=== PATIENT | female | born 1930 | race Caucasian/White ===

== ENCOUNTER 2017-03-16 09:33 | Emergency (ER) | payer OTHER, BC ==
[2017-03-16 09:37] VITALS: BP 163/89; BMI 24.3
--- NOTE | 2017-03-16 10:41 | DR.LACERAT ---
HPI - Time Seen Time seen: 10:15 - Primary Care Physician Primary Care Physician: CRISTINA - Complaints Chief Complaint Doctors Comments: History as stated. Chief Complaint:: PT. FELL AT HER HOME, [place] [address]. PT. HAS A 2CM LACERATION TO RIGHT SIDE OF HEAD, ABOVE EYEBROW WITH BRUISING NOTED. NO LOC. PT. ALSO C/O RIGHT ELBOW PAIN. SKIN TEAR NOTED TO RIGHT HAND. - Source History Provided: Patient - Mode of Arrival Mode of Arrival: Ambulatory - Timing Onset of Chief Complaint: 03/16/17 PMH - PMH Past Medical History: Yes Past Medical History: CVA, Diabetes, Hypertension, Seizures Past Surgical History: Yes Surgical History: Cholecystectomy - Family History History of Family Medical Conditions: Yes Family Medical History: Diabetes Mellitus - Social History Does patient currently use any type of tobacco product: No Have you used tobacco products in the last 12 months: No Type of Tobacco Use: None Does any household member use tobacco: No Alcohol Use: None Do you use any recreational Drugs:: No Lives With: Family Lives Where: Home - infectious screening In the last 2 months have you had wt loss of >10#?: NO Have you had fever, night sweats or hemotysis?: No Have you traveled outside the country in the last 6 months?: No Isolation: Standard ROS - Review of Systems Eyes: No Symptoms Reported ENTM: No Symptoms Reported Respiratoy: No Symptoms Reported Cardiovascular: No Symptoms Reported Gastrointestinal/Abdominal: No Symptoms Reported Genitourinary: No Symptoms Reported Neurological: No Symptoms Reported Musculoskeletal: No Symptoms Reported Integumentary: Other (2cm cresent shaped laceration of right sikhism) Hematologic/Lymphatic: No Symptoms Reported Endocrine: No Symptoms Reported, Increased Hunger All Other Systems: Reviewed and Negative PE - Vital Signs Vitals: Temperature 97.8 F Pulse Rate 70 Respiratory Rate 17 Blood Pressure [Right Arm] 193/88 Blood Pressure [Left Arm] 135/72 Blood Pressure 163/89 O2 Sat by Pulse Oximetry 97 - General Limitations: No Limitations General Appearance: Alert, In No Apparent Distress - Head Head Exam: Normal Inspection, Atraumatic - Eyes Eye exam: Normal Appearance, PERRL - ENT ENT Exam: Normal Exam - Neck Neck Exam: Normal Inspection, Full ROM - Chest Chest Inspection: Normal Inspection - Respiratory Respiratory Exam: Normal Lung Sounds Bilat Respiratory Exam: Bilateral Clear to Auscultation - Cardiovascular Cardiovascular Exam: Regular Rate - Abdominal Exam Abdominal Exam: Normal Inspection Abdominal Tenderness: negative: RUQ, RLQ, LUQ, LLQ, Epigastrium, Suprapubic, Diffuse, Mild, Moderate, Severe, Other - Extremities Extremities Exam: Other (decreased ROM of right elbow) - Back Back Exam: Normal Inspection - Neurologic Neurological Exam: Alert, Oriented X3 - Psychiatric Psychiatric Exam: Normal Affect - Skin Skin Exam: Warm, Dry, Other (cresent shaped superficial laceration of the right sikhism 2cm, right hand medial with a 1.5cm superfical laceration) Type of Lesion: Abrasion Distribution: RUE Description: Size Course - Reevaluation 1st: Improved ROR - XRAY XRAY Interpreted by: Radiologist (Right Elbow: Tiny fragment of bone adjacent to the tip of the coronoid process of the ulna likely a small fracture which could be acte, subacte, or remote) - Diagnosis Discharge Problem: Elbow fracture, right Qualifiers: Encounter type: initial encounter Fracture type: closed Qualified Code(s): S42.401A - Unspecified fracture of lower end of right humerus, initial encounter for closed fracture Laceration of temporomandibular area without foreign body Qualifiers: Encounter type: initial encounter Laterality: right Qualified Code(s): S01.411A - Laceration without foreign body of right cheek and temporomandibular area, initial encounter - Discharge Plan Condition: Stable - Follow ups/Referrals Follow ups/Referrals: Toy Mireles [Primary Care Provider] - 3 days - Instructions
--- NOTE | 2017-03-16 11:18 | RAD ---
HISTORY: Injury, fall, decreased range of motion Study: Right elbow three view Comparison: None Findings: There is a tiny fragment of bone adjacent to the coronoid process of the proximal ulna possibly repr esenting a small fracture which could be acute, subacute or remote. The remainder of the ulna, radiu s, and distal humerus are intact as is the elbow joint. IMPRESSION: Tiny fragment of bone adjacent to the tip of the coronoid process of the ulna likely a small fract ure which could be acute, subacute, or remote. Reported By:
[2017-03-16] MEDS ORDERED: MORPHINE SULFATE INJ 4 MG IM ONE (11:43)
[2017-03-16] MEDS ORDERED: MORPHINE SULFATE INJ 4 MG ONE (11:44)
== END 2017-03-16 12:00 | disposition home or self-care (01) ==
LOC: ER 09:51
PROC: 0WQ00ZZ Repair Head, Open Approach (ICD-10-PCS; principal; 2017-03-16)
DX: S01.411A Laceration without foreign body of right cheek and temporomandibular area, initial encounter (principal); S42.401A Unspecified fracture of lower end of right humerus, initial encounter for closed fracture; W19.XXXA Unspecified fall, initial encounter; Y92.009 Unspecified place in unspecified non-institutional (private) residence as the place of occurrence of the external cause
CPT/HCPCS: 73070; 96372; 99282; 99283; J2270

== ENCOUNTER → 2017-04-08 | Outpatient (CLI) | payer OTHER, BC ==
[2017-03-16 09:37] VITALS: BP 163/89
--- NOTE | 2017-04-08 11:24 | RAD ---
HISTORY: Follow up fracture Study: Right elbow two views Comparison: March 16, 2017 Findings: The limb is in a posterior splint. Once again noted is a tiny fragment of bone adjacent to the coron oid process of the ulna which could represent an acute, subacute, or old fracture. It is unchanged i n appearance from the prior examination. No joint erosion or joint effusion is identified. The proxi mal radius and distal ulna appear intact. IMPRESSION: No significant change from the prior examination Reported By:
== END ==
LOC: RAD 10:44
PROVIDERS: ATTEND Orthopaedic Surgery
DX: S52.044A Nondisplaced fracture of coronoid process of right ulna, initial encounter for closed fracture (principal); X58.XXXA Exposure to other specified factors, initial encounter
CPT/HCPCS: 73070

== ENCOUNTER → 2017-05-13 | Outpatient (CLI) | payer OTHER, BC ==
--- NOTE | 2017-05-13 17:14 | RAD ---
Right elbow, three views Indication: Fracture follow up Comparison: April 08, 2017 Findings: Overlying splint has been removed. The tiny ossific body adjacent to the coronoid process of the ulna appears grossly unchanged, again either reflecting an age indeterminate fracture fragmen t or possibly degenerative in nature. There is persistent mild displacement of the anterior fat pad of the elbow, suggestive for trace effusion. The elbow joint otherwise appears maintained in anatomi c position. No new osseous abnormality identified. Impression: No new osseous abnormality or change since prior exam. Reported By:
== END ==
LOC: RAD 15:03
PROVIDERS: ATTEND Orthopaedic Surgery
DX: S52.044A Nondisplaced fracture of coronoid process of right ulna, initial encounter for closed fracture (principal); X58.XXXA Exposure to other specified factors, initial encounter
CPT/HCPCS: 73070

== ENCOUNTER 2017-05-25 17:54 | Emergency (ER) | payer OTHER, BC ==
[~2017-05-25 17:54] MED LIST: HYDROGEN PEROXIDE 3% ONE
[2017-05-25 18:04] VITALS: BMI 24.0
--- NOTE | 2017-05-25 18:47 | CT ---
STUDY: CT HEAD WITHOUT CONTRAST HISTORY: Fall with laceration to right eyebrow. COMPARISON: January 23, 2016. TECHNIQUE: Multiple axial images of the head were obtained from the skull base to the vertex without administration of IV contrast. Automated exposure control (AEC) was utilized to adjust the MA and/o r kV. Findings: The sulci, cisterns and ventricles are prominent consistent with diffuse volume loss. There are scattered foci of low attenuation in the periventricular and subcortical white matter of b oth hemispheres. This is a nonspecific finding which likely represents microangiopathic change in a patient of this age. There is focal encephalomalacia in the left posterior temporal/parietal region, unchanged from the p rior exam. There is no evidence of acute territorial infarction, hemorrhage, mass, mass effect or m idline shift. There are no abnormal extra-axial fluid collections. There is no evidence of acute osseous abnormality or significant soft tissue swelling. IMPRESSION: 1. No evidence of acute intracranial abnormality. 2. Nonspecific white matter change and volume loss as described. 3. Probable old infarct in the left posterior temporal/parietal region. 4. If there remains strong clinical concern for acute intracranial abnormality, then an MRI examinat ion should be considered for further evaluation. Reported By:
--- NOTE | 2017-05-25 18:58 | CT ---
STUDY: MAXILLOFACIAL CT History: Fall with laceration to right eyebrow. Comparison: Head CT from January 23, 2016. Technique: Multiple axial images of the facial structures were obtained from the mandible to superio r portions of the orbits. Coronal and sagittal reformatted images were performed and reviewed. Autom ated exposure control (AEC) was utilized to adjust the MA and/or kV. Findings: Axial images: There is preseptal periorbital soft tissue swelling on the right. No post septal or intraconal fat s tranding is appreciated. The globe itself appears intact. The left orbit is intact. There does appea r to be some thinning of the lateral orbital link bilaterally. 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 There is a small fluid level in the right maxillary sinus. There is mucosal thickening in multiple e thmoid air cells. The small amount mucosal thickening in the sphenoid ethmoidal recess on the right. The frontal recesses and frontal sinus are predominately clear. The zygomaticomaxillary complexes are intact. The mandible as well as the surrounding soft tissue st ructures appear unremarkable. Cbe Reformatted images: The ethmoid roofs are symmetric. The lamina papyracea appear intact bilaterally. There is an age indeterminate orbital blowout fracture on the right. There is no evide nce of orbital blowout on the left. The ostiomeatal units are predominately clear. Both temporomandi bular joints are intact. There are periapical lucencies around several maxillary molars bilaterally. IMPRESSION: 1. 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 This was present on the prior head CT dated January 23, 2016. Although there is preseptal periorbital soft tissue swelling on the right, there is no de finite evidence of acute osseous injury to the right orbit at this time. 2. Small fluid level in the right maxillary sinus. Clinical correlation is recommended. Reported By:
--- NOTE | 2017-05-25 19:38 | DR.LACERAT ---
HPI - Time Seen Time seen: 21:15 - Primary Care Physician Primary Care Physician: CRISTINA HERNANDEZ - HPI Comment HPI Comment: PATIENTWAS COMING OUT OF THE [facility]CT[facility] OFFICE AND FELL. NO LOC. 3CM LACERATION RIGHT EYE BROW. - Complaints Chief Complaint Doctors Comments: FELL. LACERATION RIGHT EYE BROW. Chief Complaint:: PT WAS WALKING OUT OF DOCTORS OFFICE AND PT FELL AND HIT HER HEAD ON THE SIDE WALK.. PTS DAUGHTER NO LOC ,,, PT HAS A 3 CM LACERATON TO HER RIGHT ABOVE BROW AREA .. - Reviewed Nurses Notes Reviewed: Yes - Source History Provided: Patient - Mode of Arrival Mode of Arrival: Wheelchair - Timing Onset of Chief Complaint: 05/25/17 - Context Mechanism: Fall Tetanus Vaccination: No - Severity Pain Severity: Moderate Bleeding:: Uncontrolled - Associated Signs and Symptoms Associated Signs and Symptoms: Foreign Body PMH - PMH Past Medical History: Yes Past Medical History: CVA, Diabetes, Hypertension, Seizures Past Surgical History: Yes Surgical History: Cholecystectomy - Family History History of Family Medical Conditions: Yes Family Medical History: Diabetes Mellitus - Social History Does patient currently use any type of tobacco product: No Have you used tobacco products in the last 12 months: No Type of Tobacco Use: None Does any household member use tobacco: No Alcohol Use: None Do you use any recreational Drugs:: No Lives With: Family Lives Where: Home - infectious screening In the last 2 months have you had wt loss of >10#?: NO Have you had fever, night sweats or hemotysis?: No Have you traveled outside the country in the last 6 months?: No Isolation: Standard ROS - Review of Systems Constitutional: No Symptoms Reported Eyes: No Symptoms Reported ENTM: No Symptoms Reported Respiratoy: No Symptoms Reported Cardiovascular: No Symptoms Reported Gastrointestinal/Abdominal: No Symptoms Reported Genitourinary: No Symptoms Reported Neurological: No Symptoms Reported Musculoskeletal: Other (ROGHT PERORBITAL SWELLING.) Integumentary: Other (3CM LACERATION RT EYE BROW.) Hematologic/Lymphatic: No Symptoms Reported Endocrine: No Symptoms Reported All Other Systems: Reviewed and Negative PE - Vital Signs Vitals: Pulse Rate [Left Brachial] 77 Respiratory Rate 18 Blood Pressure [Right Arm] 173/78 Blood Pressure [Left Arm] 135/72 Blood Pressure 163/89 O2 Sat by Pulse Oximetry 100 - General Limitations: No Limitations General Appearance: Alert. negative: In Distress - Head Head Exam: Other (3CM LACERATION RT EYE BROW. RT PERIORBITAL SWELLING.) - Eyes Eye exam: Normal Appearance - ENT ENT Exam: Normal External Ear Exam - Neck Neck Exam: Trachea Midline - Chest Chest Inspection: Symmetric Chest Wall Rise - Respiratory Respiratory Exam: Normal Lung Sounds Bilat Respiratory Exam: Bilateral Rhonchi, Lower Rhonchi - Cardiovascular Cardiovascular Exam: Regular Rate, Normal Rhythm, Normal Heart Sounds - Abdominal Exam Abdominal Exam: Normal Bowel Sounds, Soft. negative: Guarding - Extremities Extremities Exam: Normal Inspection, Normal Capillary Refill - Back Back Exam: Normal Inspection - Neurologic Neurological Exam: Alert, Oriented X3 - Psychiatric Psychiatric Exam: Normal Affect, Normal Mood - Skin Skin Exam: Erythema (3CM LAC RT EYE MONTSERRAT-ROW.) MDM - Additional Information Obtained Additional Information Obtained From: Family - Differential Diagnosis Differential Diagnosis: Abrasion, Contusion, Laceration, Fracture Course - Treatment Treatment: LAC CLOSE IN ED. - Education/Counseling Education/Counseling: Patient, Family, Education Educated On: Treatment, Diagnosis, Needs for Follow Up ROR - XRAY XRAY Interpreted by: Radiologist XRAY Findings: REPORT DISCUSS WITH PATIENT AND HER FAMILY. Procedures - Laceration/Wound Repair Right Eye Wound Length (cm): 3 Wound's Depth, Shape: Linear Wound Explored: clean Betadine Prep?: Yes Anesthesia: 1% Lidocaine Volume Anesthetic (ccs): 2 Wound Debrided: minimal Wound Repaired With: sutures Suture Size/Type: 4:0, Ethilion Number of Sutures: 6 Sterile Dressing Applied?: Yes Splint Applied?: No Sling Applied?: No - Diagnosis Discharge Problem: Laceration of right eyebrow Qualifiers: Encounter type: initial encounter Qualified Code(s): S01.111A - Laceration without foreign body of right eyelid and periocular area, initial encounter Contusion of face Qualifiers: Encounter type: initial encounter Qualified Code(s): S00.83XA - Contusion of other part of head, initial encounter Fall Qualifiers: Encounter type: initial encounter Qualified Code(s): W19.XXXA - Unspecified fall, initial encounter - Discharge Plan Disposition: HOME, SELF-CARE Condition: Stable - Follow ups/Referrals Follow ups/Referrals: Toy iMreles [Primary Care Provider] - 2 days - Instructions Instructions: Laceration Care, Adult, [id number] Additional Instructions: RETURN TO ED IF WORSE. SUTURE OUT IN 10 DAYS
[2017-05-25 19:51] VITALS: BP 173/78
== END 2017-05-25 20:06 | disposition home or self-care (01) ==
LOC: ER 18:03
PROC: 08Q0XZZ Repair Right Eye, External Approach (ICD-10-PCS; principal; 2017-05-25)
DX: S01.111A Laceration without foreign body of right eyelid and periocular area, initial encounter (principal); W19.XXXA Unspecified fall, initial encounter; Y92.531 Health care provider office as the place of occurrence of the external cause
CPT/HCPCS: 12013; 70450; 70486; 99283

== ENCOUNTER → 2017-12-02 | Outpatient (CLI) | payer OTHER, BC ==
--- NOTE | 2017-12-02 11:35 | MG ---
Examination: Bilateral screening mammogram. Clinical history: Routine screening. Technique: Digital CC and MLO views of both breasts were obtained. Computer aided detection analysis was performed and used during the interpretation. Comparison: 10/27/2016. Findings: The breasts are heterogeneously dense, reducing the sensitivity of mammography. Benign-appearing calc ifications are noted in the breasts bilaterally. A skin mole is present overlying the right breast. No suspicious mass, area of architectural distortion or suspicious cluster of microcalcifications is noted. Impression: 1. No mammographic evidence of malignancy. BI-RADS category 2-benign findings. Recommend routine annual screening mammogram. Diagnostic CAD was utilized and reviewed. * 0 (ZERO) - ASSESSMENT INCOMPLETE; ADDITIONAL IMAGING IS NEEDED. * 0C - ASSESSMENT INCOMPLETE, NEEDS ADDITIONAL IMAGING EVALUATION AND/OR PRIOR MAMMOGRAMS FOR COMPARI SON. * 1/1 (ONE) - NEGATIVE. * 2/II (TWO) - BENIGN FINDINGS. * 3/III (THREE) - PROBABLY BENIGN FINDING; SHORT INTERVAL FOLLOW-UP SUGGESTED. * 4/IV (FOUR) - SUSPICIOUS ABNORMALITY; BIOPSY SHOULD BE CONSIDERED. * 5/V - HIGHLY SUSPICIOUS OF MALIGNANCY; BIOPSY SHOULD BE PERFORMED. * 6/IV - KNOWN BIOPSY PROVEN MALIGNANCY-APPROPRIATE ACTION SHOULD BE TAKEN. A NEGATIVE X-RAY REPORT SHOULD NOT DELAY BIOPSY IF A DOMINANT OR CLINICALLY SUSPICIOUS MASS IS PRESENT; 4 TO 8 PERCENT OF CANCERS ARE NOT IDENTIFIED BY X-RAY. A NEGATIVE REPORT MAY REINFORCE THE CLINICAL IMPRESSION. ADENOSIS AND DENSE BREASTS MAY OBSCURE AN UNDERLYING NEOPLASM. Reported By:
== END ==
LOC: RAD 10:03
PROVIDERS: ATTEND Internal Medicine
DX: Z12.31 Encounter for screening mammogram for malignant neoplasm of breast (principal)
CPT/HCPCS: 77067

== ENCOUNTER 2019-12-11 14:45 | Inpatient (IN) ==
--- NOTE | 2019-12-11 17:32 | DR.GIBLEED ---
HPI Time Seen Time Seen by Provider: 12/11/19 17:26 Primary Care Physician Primary Care Physician: DR. EVANS Complaints Chief Complaint:: PT STATES SHE IS PASSING CLOTS OF BLOOD OUT OF HER RECTUM. STATES IT STARTED THIS AM. STATES SHE IS WEAK FEELING FROM PASSING OF THE BLOOD. STATES HER STOMACH APPEARS SWOLLEN. Source History Provided: Patient Mode of Arrival Mode of Arrival: Ambulatory Timing Onset of Chief Complaint: 12/11/19 PMH PMH Past Medical History: Yes Past Medical History: CVA and Seizures Past Medical History Comment: BORDERLINE DIABETES Past Surgical History: Yes Surgical History: Cholecystectomy and Ortho Surgery Past Surgical History Comment: LEFT HIP SURGERY RIGHT LEG SURGERY Family History History of Family Medical Conditions: Yes Family Medical History: Diabetes Mellitus Social History Does patient currently use any type of tobacco product: No Have you used tobacco products in the last 12 months: No Type of Tobacco Use: None Does any household member use tobacco: No Alcohol Use: None Do you use any recreational Drugs:: No Lives With: Alone Lives Where: Home infectious screening Have you traveled outside the country in the last 6 months?: No Isolation: Standard ROS Review of Systems Constitutional: See HPI, Malaise, Weakness and Fatigue; negative Diaphoresis and Fever Eyes: No Symptoms Reported ENTM: No Symptoms Reported Respiratoy: No Symptoms Reported Cardiovascular: No Symptoms Reported Gastrointestinal/Abdominal: See HPI, Diarrhea and Other (blood in stool x 24 hrs- cramping) Genitourinary: No Symptoms Reported Neurological: No Symptoms Reported Musculoskeletal: No Symptoms Reported Integumentary: No Symptoms Reported Hematologic/Lymphatic: No Symptoms Reported All Other Systems: Reviewed and Negative PE Vital Signs Vitals: Temperature 98.3 F Pulse Rate 78 Respiratory Rate 16 Blood Pressure [Right Arm] 134/62 Blood Pressure [Left Arm] 159/76 Blood Pressure 129/59 O2 Sat by Pulse Oximetry 91 General Limitations: No Limitations General Appearance: Alert, Anxious and In Distress Head Head Exam: Normal Inspection Eyes Eye exam: PERRL and EOMI ENT ENT Exam: Normal Exam Neck Neck Exam: Normal Inspection Chest Chest Inspection: Normal Inspection Respiratory Respiratory Exam: Normal Lung Sounds Bilat Cardiovascular Cardiovascular Exam: Regular Rate and Normal Heart Sounds Abdominal Exam Abdominal Exam: Normal Inspection and Normal Bowel Sounds; negative Tenderness and Guarding Rectal Rectal Exam: Deferred Extremities Extremities Exam: Normal Inspection Skin Skin Exam: Warm, Dry and Intact DIFFERENTIAL DIAGNOSIS Differential Diagnosis Differential Diagnosis: Diverticulosis ROR Labs Reviewed Result Diagrams: 12/11/19 17:51 12/11/19 17:51 Opioid Opioid Risk Tool Age (Davion box if 16-45): No History of Preadolescent Sexual Abuse: No Total: 0 Total Score Risk Category: Low Risk Copyright: Kermit CARMONA predicting aberrant behaviors
[2019-12-11 18:14] LABS: ALANINE AMINOTRANSFERASE 22 Units/L (12-78); ALBUMIN 3.9 g/dL (3.4-5.0); ALKALINE PHOSPHATASE 61 Units/L (46-116); ASPARTATE AMINO TRANSFERASE 19 Units/L (15-37); BASOPHILS # (AUTO) 0.4 X10^3/uL (0.0-0.1); BASOPHILS % (AUTO) 1.5 % (0.2-1.0); BLOOD UREA NITROGEN 31 mg/dL (7-18); CALCIUM 9.7 mg/dL (8.5-10.1); CARBON DIOXIDE 30.5 mmol/L (21-32); CHLORIDE 101 mmol/L (98-107); COR NA(FOR HYPERGLY) 138 mmol/L (136-145); CREATININE 0.96 mg/dL (0.55-1.02); EOSINOPHILS # (AUTO) 0.3 x10^3/uL (0.0-0.2); EOSINOPHILS % (AUTO) 1.1 % (0.9-2.9); HEMATOCRIT 37.3 % (36.0-47.0); HEMOGLOBIN 12.5 g/dL (12.0-16.0); LYMPHOCYTES # (AUTO) 4.4 X10^3/uL (1.3-2.9); MEAN CORPUSCULAR HEMOGLOBIN 31.4 pg (27.0-34.0); MEAN CORPUSCULAR HGB CONC 33.5 g/dL (33.0-35.0); MEAN CORPUSCULAR VOLUME 93.8 fL (80.0-100.0); MEAN PLATELET VOLUME 7.4 fL (7.4-11.0); MONOCYTES # (AUTO) 0.6 x10^3/uL (0.3-0.8); MONOCYTES % (AUTO) 2.2 % (0.0-13.0); NEUTROPHILS # (AUTO) 21.7 x10^3/uL (2.2-4.8); NEUTROPHILS % (AUTO) 79.2 % (42.0-75.0); RED BLOOD COUNT 3.97 X10^6/uL (3.5-5.4); RED CELL DISTRIBUTION WIDTH 15.5 % (11.6-16.5); SODIUM 137 mmol/L (136-145); WHITE BLOOD COUNT 27.4 X10^3/uL (3.6-10.0); eGFR NON BLACK RACES 58 (>60)
[2019-12-11 18:31] LABS: PLATELET COUNT 1168 X10^3/uL (150.0-450.0)
[2019-12-11 18:32] LABS: BAND NEUTROPHILS % 2 % (0-10); PLATELET MORPHOLOGY COMMENT NORMAL (NORMAL)
--- NOTE | 2019-12-11 18:41 | CT ---
HISTORYabdominal pain, GI bleedSTUDYABDOMEN/PELVIS W/O CONCOMPARISONNone.TECHNIQUEMultiple axial images of the abdomen and pelvis were obtained from the lung bases to the pubic symphysis without the administration of IV contrast. Dose reduction techniques including Automated Exposure Control (AEC) and adjustment of mA and kV were utilized.FINDINGSExamination, specifically for evaluation of a source of GI bleed, is limited given the lack of intravenous contrast. Included portions of the lung bases are clear. There are coronary artery calcifications. 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 There is extensive atherosclerotic disease of the abdominal aorta and branch vessels with narrowing of the abdominal aorta near the level of the renal arteries. The gallbladder is surgically absent. The liver, pancreas, spleen, adrenal glands and kidneys are unremarkable in their noncontrast CT appearance. The urinary bladder is partially distended and grossly unremarkable. The uterus is present. The appendix is normal. There is sigmoid diverticulosis with suspected thickening of the wall of the sigmoid colon. There is no associated inflammatory change to suggest acute diverticulitis. Underlying mass cannot be excluded. There is no small bowel dilatation. There is no intraperitoneal free air or free fluid. There is an uncomplicated fat containing umbilical hernia. There is scoliosis and multilevel degenerative disc disease the thoracolumbar spine. There has been open reduction and internal fixation of a left femoral neck fracture.IMPRESSION1. Examination, specifically for evaluation of a source of GI bleed, is limited given the lack of intravenous contrast.2. Sigmoid diverticulosis with thickening of the wall of the sigmoid colon, but without associated inflammatory change to suggest acute diverticulitis. Underlying mass cannot be excluded. GI consultation is recommended if not already obtained.3. 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 Extensive atherosclerotic disease of the abdominal aorta and branch vessels which results in narrowing of the abdominal aorta at the level of the renal arteries. Follow-up CT angiogram of the abdomen with IV contrast on an outpatient basis may be of further diagnostic benefit.Electronically signed by: ULYSSES ANGEL (Dec 11, 2019 18:38:51)
--- NOTE | 2019-12-11 19:05 | DR.GIBLEED ---
HPI Time Seen Time Seen by Provider: 12/11/19 17:26 Primary Care Physician Primary Care Physician: DR. EVANS HPI Comment HPI Comment: PATIENT IS 89YR OLD FEMALE IN ER WITH RECTAL BLEEDING WITH BLOOD CLOTS SINCE THIOIS AM. Complaints Chief Complaint Doctors Comments: RECTAL BLEEDING SINCE THIS AM WITH ABDOMINAL SWELLING AND PAIN. Chief Complaint:: PT STATES SHE IS PASSING CLOTS OF BLOOD OUT OF HER RECTUM. STATES IT STARTED THIS AM. STATES SHE IS WEAK FEELING FROM PASSING OF THE BLOOD. STATES HER STOMACH APPEARS SWOLLEN. Reviewed Nurses Notes Reviewed: Yes Source History Provided: Patient Mode of Arrival Mode of Arrival: Ambulatory Timing Onset of Chief Complaint: 12/11/19 Duration Bleeding: Currently Present Duration: Hours Quality Vomitus: Bright Red Blood Stools: Bright Red Blood PMH PMH Past Medical History: Yes Past Medical History: CVA and Seizures Past Medical History Comment: BORDERLINE DIABETES Past Surgical History: Yes Surgical History: Cholecystectomy and Ortho Surgery Past Surgical History Comment: LEFT HIP SURGERY RIGHT LEG SURGERY Family History History of Family Medical Conditions: Yes Family Medical History: Diabetes Mellitus Social History Does patient currently use any type of tobacco product: No Have you used tobacco products in the last 12 months: No Type of Tobacco Use: None Does any household member use tobacco: No Alcohol Use: None Do you use any recreational Drugs:: No Lives With: Alone Lives Where: Home infectious screening Have you traveled outside the country in the last 6 months?: No Isolation: Standard PE Vital Signs Vitals: Temperature 98.3 F Pulse Rate [Left Brachial] 70 Pulse Rate 78 Respiratory Rate 17 Blood Pressure [Right Arm] 134/62 Blood Pressure [Left Arm] 112/59 Blood Pressure 129/59 O2 Sat by Pulse Oximetry 91 ROR Labs Reviewed Result Diagrams: 12/11/19 17:51 12/11/19 17:51 Laboratory: WBC 27.4 X10^3/uL (3.6-10.0) H 12/11/19 17:51 RBC 3.97 X10^6/uL (3.5-5.4) 12/11/19 17:51 Hgb 12.5 g/dL (12.0-16.0) 12/11/19 17:51 Hct 37.3 % (36.0-47.0) 12/11/19 17:51 MCV 93.8 fL (80.0-100.0) 12/11/19 17:51 MCH 31.4 pg (27.0-34.0) 12/11/19 17:51 MCHC 33.5 g/dL (33.0-35.0) 12/11/19 17:51 RDW 15.5 % (11.6-16.5) 12/11/19 17:51 Plt Count 1168 X10^3/uL (150.0-450.0) H* 12/11/19 17:51 Plt Count Comment Increased (ADEQUATE) A 12/11/19 17:51 MPV 7.4 fL (7.4-11.0) 12/11/19 17:51 Neut % (Auto) 79.2 % (42.0-75.0) H 12/11/19 17:51 Lymph % (Auto) 16.0 % (21.0-51.0) L 12/11/19 17:51 [place] % (Auto) 2.2 % (0.0-13.0) 12/11/19 17:51 Eos % (Auto) 1.1 % (0.9-2.9) 12/11/19 17:51 Baso % (Auto) 1.5 % (0.2-1.0) H 12/11/19 17:51 Neut # (Auto) 21.7 x10^3/uL (2.2-4.8) H 12/11/19 17:51 Lymph # (Auto) 4.4 X10^3/uL (1.3-2.9) H 12/11/19 17:51 [place] # (Auto) 0.6 x10^3/uL (0.3-0.8) 12/11/19 17:51 Eos # (Auto) 0.3 x10^3/uL (0.0-0.2) H 12/11/19 17:51 Baso # (Auto) 0.4 X10^3/uL (0.0-0.1) H 12/11/19 17:51 Absolute Nucleated RBC 0.0 /100WBC 12/11/19 17:51 Total Counted 100 12/11/19 17:51 Neutrophils % (Manual) 75 % (39-76) 12/11/19 17:51 Band Neutrophils % 2 % (0-10) 12/11/19 17:51 Lymphocytes % (Manual) 19 % (13-43) 12/11/19 17:51 Monocytes % (Manual) 3 % (4-9) L 12/11/19 17:51 Eosinophils % (Manual) 1 % (0-6) 12/11/19 17:51 Plt Morphology Comment Normal (NORMAL) 12/11/19 17:51 RBC Morphology Normal (NORMAL) 12/11/19 17:51 Sodium 137 mmol/L (136-145) 12/11/19 17:51 Corrected Sodium 138 mmol/L (136-145) 12/11/19 17:51 Potassium 4.7 mmol/L (3.5-5.1) 12/11/19 17:51 Chloride 101 mmol/L (98-107) 12/11/19 17:51 Carbon Dioxide 30.5 mmol/L (21-32) 12/11/19 17:51 BUN 31 mg/dL (7-18) H 12/11/19 17:51 Creatinine 0.96 mg/dL (0.55-1.02) 12/11/19 17:51 Est GFR (MDRD) Af Amer > 60 (>60) 12/11/19 17:51 Est GFR (MDRD) Non-Af 58 (>60) L 12/11/19 17:51 Glucose 126 mg/dL (65-99) H 12/11/19 17:51 Lactic Acid 0.7 mmol/L (0.4-2.0) 12/11/19 19:06 Calcium 9.7 mg/dL (8.5-10.1) 12/11/19 17:51 Corrected Calcium TNP 12/11/19 17:51 Total Bilirubin 0.40 mg/dL (0.2-1.0) 12/11/19 17:51 AST 19 Units/L (15-37) 12/11/19 17:51 ALT 22 Units/L (12-78) 12/11/19 17:51 Alkaline Phosphatase 61 Units/L (46-116) 12/11/19 17:51 Total Protein 7.0 g/dL (6.4-8.2) 12/11/19 17:51 Albumin 3.9 g/dL (3.4-5.0) 12/11/19 17:51 Globulin 3.1 g/dL (2.5-4.5) 12/11/19 17:51 Albumin/Globulin Ratio 1.3 Ratio (1.1-2.1) 12/11/19 17:51 Specimen Type Catherized urine 12/11/19 20:46 Urine Color Yellow (YELLOW) 12/11/19 20:46 Urine Appearance Clear (CLEAR) 12/11/19 20:46 Urine pH 7.0 (5.0 - 8.0) 12/11/19 20:46 Ur Specific [place] 1.010 (1.000-1.030) 12/11/19 20:46 Urine Protein Negative (NEGATIVE) 12/11/19 20:46 Urine Glucose (UA) Negative (NEGATIVE) 12/11/19 20:46 Urine Ketones Negative (NEGATIVE) 12/11/19 20:46 Urine Occult Blood 1+ (NEGATIVE) 12/11/19 20:46 Urine Nitrite Negative (NEGATIVE) 12/11/19 20:46 Urine Bilirubin Negative (NEGATIVE) 12/11/19 20:46 Urine Urobilinogen Normal (NORMAL) 12/11/19 20:46 Ur Leukocyte Esterase 3+ (NEGATIVE) 12/11/19 20:46 Urine RBC None seen /HPF (0-3) 12/11/19 20:46 Urine WBC Tntc /HPF (0-5) A 12/11/19 20:46 Ur Squamous Epith Cells Few /HPF (NEGATIVE) 12/11/19 20:46 Urine Bacteria 1+ /HPF (NEGATIVE) 12/11/19 20:46 Urine Mucus Moderate /HPF (NEGATIVE) 12/11/19 20:46 Ur Culture Indicated? Yes/culture set up 12/11/19 20:46 Stool Description 75g pink clear lqd 12/11/19 18:11 Stl Occult Blood (IFOB) Positive (NEGATIVE) A 12/11/19 18:11 Opioid Opioid Risk Tool Age ([place] box if 16-45): No History of Preadolescent Sexual Abuse: No Total: 0 Total Score Risk Category: Low Risk Copyright: Kermit CARMONA predicting aberrant behaviors
[2019-12-11] MEDS ORDERED: PROTONIX INJ 40 MG VIAL ONE (19:14)
[2019-12-11] MEDS ORDERED: NS 100 ML IV 100 ML IV ONE (19:14)
[2019-12-11] MEDS: PROTONIX INJ 40 MG VIAL 80 MG in NS 100 ML IV 80 ML IV SCH (19:31)
[2019-12-11] MEDS ORDERED: ZOSYN VIAL 3.375 GRAMS 3.375 G in NS 100 ML IV + SPIKE MINIBAG* 100 ML IV ONE (19:55)
[2019-12-11] MEDS ORDERED: ZOSYN VIAL 3.375 GRAMS IV ONE (20:16)
[2019-12-11] MEDS ORDERED: NS 100 ML IV + SPIKE MINIBAG* 100 ML IV ONE (20:17)
[2019-12-11 20:51] LABS: BILIRUBIN,URINE NEGATIVE (NEGATIVE); BLOOD/HEMOGLOBIN,URINE 1+ (NEGATIVE); GLUCOSE, URINE NEGATIVE (NEGATIVE); KETONES,URINE NEGATIVE (NEGATIVE); LEUKOCYTE ESTERASE ,URINE 3+ (NEGATIVE); NITRITES,URINE NEGATIVE (NEGATIVE); PROTEIN,URINE NEGATIVE (NEGATIVE); UROBILINOGEN,URINE NORMAL (NORMAL)
[2019-12-11 21:00] LABS: APPEARANCE,URINE CLEAR (CLEAR); BACTERIA,URINE 1+ /HPF (NEGATIVE); COLOR,URINE YELLOW (YELLOW); MUCUS,URINE MODERATE /HPF (NEGATIVE); RBC,URINE NONE SEEN /HPF (0-3); SQUAMOUS EPITHELIAL CELL,UR FEW /HPF (NEGATIVE)
--- NOTE | 2019-12-11 21:50 | RAD ---
HISTORYleukocytosis, passing blood from rectumSTUDYCHEST, 1 VIEWCOMPARISONJune 2017FINDINGSThe trachea is midline. The cardiac silhouette is enlarged. Hazy opacification within the left lung base suggest atelectasis, infiltrate, and/or small effusion. Correlate clinically.IMPRESSIONCardiomegaly.Left basilar airspace disease as noted above.Electronically signed by: FE MASTERSON (Dec 11, 2019 21:49:12)
[2019-12-11] MEDS ORDERED: NS 1000 ML 1,000 ML ONE (22:10)
[2019-12-11] MEDS: NS 1000 ML 1,000 ML IV SCH (22:15)
[2019-12-12 02:41] VITALS: BMI 24.0
[2019-12-12] MEDS: PROTONIX INJ 40 MG VIAL 80 MG in NS 100 ML IV 80 ML IV SCH ×4 (04:31→18:50)
[2019-12-12 05:49] LABS: BASOPHILS % (AUTO) 0.1 % (0.2-1.0); EOSINOPHILS # (AUTO) 0.8 x10^3/uL (0.0-0.2); EOSINOPHILS % (AUTO) 4.8 % (0.9-2.9); HEMATOCRIT 26.2 % (36.0-47.0); HEMOGLOBIN 8.7 g/dL (12.0-16.0); LYMPHOCYTES # (AUTO) 1.4 X10^3/uL (1.3-2.9); LYMPHOCYTES % (AUTO) 8.5 % (21.0-51.0); MEAN CORPUSCULAR HEMOGLOBIN 31.4 pg (27.0-34.0); MEAN CORPUSCULAR HGB CONC 33.4 g/dL (33.0-35.0); MEAN PLATELET VOLUME 7.7 fL (7.4-11.0); MONOCYTES # (AUTO) 0.3 x10^3/uL (0.3-0.8); NEUTROPHILS # (AUTO) 14.4 x10^3/uL (2.2-4.8); NEUTROPHILS % (AUTO) 84.6 % (42.0-75.0); PLATELET COUNT 803 X10^3/uL (150.0-450.0); RED BLOOD COUNT 2.79 X10^6/uL (3.5-5.4); RED CELL DISTRIBUTION WIDTH 15.7 % (11.6-16.5)
[2019-12-12 05:58] LABS: ALANINE AMINOTRANSFERASE 16 Units/L (12-78); ALBUMIN 2.8 g/dL (3.4-5.0); ALKALINE PHOSPHATASE 39 Units/L (46-116); ASPARTATE AMINO TRANSFERASE 13 Units/L (15-37); BLOOD UREA NITROGEN 30 mg/dL (7-18); CALCIUM 8.3 mg/dL (8.5-10.1); CARBON DIOXIDE 26.8 mmol/L (21-32); CHLORIDE 105 mmol/L (98-107); COR CA(FOR HYPOALB) 9.3 mg/dL (8.5-10.1); COR NA(FOR HYPERGLY) 139 mmol/L (136-145); CREATININE 0.71 mg/dL (0.55-1.02); MAGNESIUM 1.7 mg/dL (1.7-2.9); SODIUM 139 mmol/L (136-145); eGFR NON BLACK RACES > 60 (>60)
[2019-12-12 06:25] LABS: BAND NEUTROPHILS % 3 % (0-10)
[2019-12-12 06:26] LABS: PLATELET MORPHOLOGY COMMENT NORMAL (NORMAL)
[2019-12-12] MEDS: ROCEPHIN VIAL 1 GRAM 1 G in NS 100 ML IV + SPIKE MINIBAG* 100 ML IV SCH (09:10)
[2019-12-12] MEDS: TYLENOL 325 MG TAB PO PRN (11:32)
[2019-12-12] MEDS: NS 1000 ML 1,000 ML IV SCH ×2 (14:07→22:42)
--- NOTE | 2019-12-12 18:49 | DR.CONSULT ---
Consult - Consultation for Day of: Date: 12/12/19 - Chief Complaint Chief Complaint: Patient is a 89yo female who was referred for GI Bleed and anemiaa. Patient with complaints of dyspesia, epigastric pain and hematochezia - History of Present Illness History of Present Illness: Patient is a 89yo female who was referred for GI Bleed and anemia. Patient with complaints of dyspesia, epigastric pain and hematochezia that started yesterday and was passing blood clots, last seen late last night. Patient denies dysphagia, nausea, vomiting, constipation, diarrhea and melena. Last Colon was [address] Jean Baptiste no polyps. Patient had abdomen and pelvis ct scan showed Examination, specifically for evaluation of a source of GI bleed, is limited given the lack of intravenous contrast, Sigmoid diverticulosis with thickening of the wall of the sigmoid colon, but without associated inflammatory change to suggest acute diverticulitis. Underlying mass cannot be excluded. GI consultation is recommended if not already obtained. 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 Follow-up CT angiogram of the abdomen with IV contrast on an outpatient basis may be of further diagnostic benefit. WBC 17.0, Hgb 8.7 down from 12.5, Hct 26.2, Plt 803, INR 1.28, BUN 30, Creatinine 0.71, T. Bili 0.3, AST 13, ALT 16, ALP39. Hemoccult positive. - Past Medical History Past Medical History: CVA, Seizures Additional Medical History: Hearing and Vision deficit, Urinary Tract Infections, Muscle Weakness, Cancer of lung- right lower lobe - Past Surgical History Surgical History: Cholecystectomy, Ortho Surgery Additional Surgical History: Right Lower Lung Lobectomy 2012, ORIF of left femur - Family History Family Medical History: [place], Coronary Artery Disease - Social History Does patient currently use any type of tobacco product: No Have you used tobacco products in the last 12 months: No Type of Tobacco Use: None Does any household member use tobacco: No Alcohol Use: None Drug Use: None - Medications Home Medications: ciprofloxacin [From Cipro] Allergy (Verified 05/25/17 18:00) codeine Allergy (Verified 05/25/17 18:00) metronidazole [From Flagyl] Allergy (Verified 12/12/19 09:12) CONTINUE taking the following medications amlodipine 10 mg PO DAILY 12/12/19 [History] atorvastatin 10 mg PO DAILY 12/12/19 [History] esomeprazole magnesium 40 mg PO DAILY 12/12/19 [History] levothyroxine 50 mcg PO DAILY 12/12/19 [History] losartan 50 mg PO DAILY 12/12/19 [History] meclizine 12.5 mg PO BID 12/12/19 [History] meloxicam 7.5 mg PO DAILY 12/12/19 [History] metoprolol succinate 25 mg PO DAILY 12/12/19 [History] montelukast [Singulair] 10 mg PO DAILY 12/12/19 [History] - Review of Systems Gastrointestinal: See HPI, Abdominal Pain (epigastric), Hematochezia - Physical Exam Vital Signs: Temperature 99.1 F Pulse Rate [Left Brachial] 70 Pulse Rate 95 Respiratory Rate 20 Blood Pressure [Right Arm] 153/58 Blood Pressure [Left Arm] 112/59 Blood Pressure 127/58 O2 Sat by Pulse Oximetry 100 Oriented: Normal Eyes: Normal Ear: Normal Nose: Normal Throat: Normal Respiratory: Clear Throughout Cardiovascular: Normal Auscultation: Bowel Sounds: Normal Palpation: Normal. negative: Spleen Enlarged, Liver Enlarged, Mass Pulsatile Tenderness: Epigastric Skin: Normal Musculoskeletal: Normal Psychiatric: Normal Mood Description: Calm Affect: Normal Speech Pattern: Clear, Appropriate - Plan Plan: Assessment. 1. Anemia, hematochezia. 2. Epigastric pain, GERD. Plan. 1. Monitor Hgb, Transfuse as needed, Colon on . 2. Protonix, EGD tomorrow. Plan reviewed with Dr. Muñoz - Allergies Allergies/Adverse Reactions: Allergies Allergy/AdvReac Type Severity Reaction Status Date / Time ciprofloxacin [From Cipro] Allergy Verified 05/25/17 18:00 codeine Allergy Verified 05/25/17 18:00 metronidazole [From Flagyl] Allergy Verified 12/12/19 09:12
[2019-12-12] MEDS ORDERED: KLONOPIN TAB 1 MG PO PRN (20:20)
[2019-12-12] MEDS: KLONOPIN TAB 0.5 MG PO PRN (20:30)
--- NOTE | 2019-12-12 22:58 | DR.H&P ---
H&P - History & Physical for Day of: H&P Date: 12/11/19 - Chief Complaint Chief Complaint: BLOOD IN STOOL, ABDOMINAL PAIN - History of Present Illness History of Present Illness: IS A 89 YEAR OLD PATIENT OF OURS WHO PRESENTED TO THE ER WITH COMPLAINTS OF PASSING BLOOD IN STOOL. SHE REPORTED THAT SYMPTOMS STARTED EARLIER IN THE DAY. SHE REPORTS WEAKNESS AND ABDOMINAL PAIN. SHE IS NOTED WITH ABDOMINAL DISTENTION. ON ARRIVAL TO THE ER, VITALS WERE 98.3-78-16-91%-129/59. LABS WERE OBTAINED. ABNORMAL LAB VALUES INCLUDE THE FOLLOWING: WBC 27.4, PLT COUNT 1168, BUN 31, GLUCOSE 126. STOOL POSITIVE FOR OCCULT BLOOD. A URINALYSIS WAS OBTAINED. ABNORMAL LAB VALUES INCLUDE THE FOLLOWING: WBC TNTC, RBC NONE SEEN, LEUKOCYTES 3+, BACTERIA 1+. URINE AND BLOOD CULTURES WERE SET UP. AN ABDOMEN/PELVIS CT WITHOUT CONTRAST WAS OBTAINED AND REVEALED: 1. Examination, specifically for evaluation of a source of GI bleed, is limited given the lack of intravenous contrast. 2. Sigmoid diverticulosis with thickening of the wall of the sigmoid colon, but without associated inflammatory change to suggest acute diverticulitis. Underlying mass cannot be excluded. GI consultation is recommended if not already obtained. 3. 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 4. Extensive atherosclerotic disease of the abdominal aorta and branch vessels which results in narrowing of the abdominal aorta at the level of the renal arteries. Follow-up CT angiogram of the abdomen with IV contrast on an outpatient basis may be of further diagnostic benefit. CHEST XRAY WAS OBTAINED AND REVEALED: The trachea is midline. The cardiac silhouette is enlarged. Hazy opacification within the left lung base suggest atelectasis, infiltrate, and/or small effusion. SHE WAS GIVEN ZOSYN 3.375 IV X 1 DOSE. SHE WAS ADMITTED FOR FURTHER EVALUATION AND TREATMENT OF ACUTE GI BLEED, LEUKOCYTOSIS, THROMBOCYTOSIS, AND A URINARY TRACT INFECTION. SHE WAS STARTED ON NORMAL SALINE AT 125 ML/HR, PROTONIX DRIP, ROCEPHIN 1G IV DAILY, AND KLONOPIN 0.5MG PO BID PRN. WE WILL REVIEW HER HOME MEDICATIONS. WE WILL CONSULT , DATA INTEGRITY CONSULTANT. OTHERWISE, WE WILL FOLLOW UP WITH AM LABS AND CONTINUE TO MONITOR. - Past Medical History Past Medical History: CVA, Seizures Additional Medical History: Hearing and Vision deficit, Urinary Tract Infections , Muscle Weakness, Cancer of lung- right lower lobe - Past Surgical History Surgical History: Cholecystectomy, Ortho Surgery Additional Surgical History: Right Lower Lung Lobectomy 2012, ORIF of left femur - Family History Family Medical History: [place], Coronary Artery Disease - Social History Does patient currently use any type of tobacco product: No Have you used tobacco products in the last 12 months: No Type of Tobacco Use: None Does any household member use tobacco: No Alcohol Use: None Drug Use: None - Medications Home Medications: ciprofloxacin [From Cipro] Allergy (Verified 05/25/17 18:00) codeine Allergy (Verified 05/25/17 18:00) metronidazole [From Flagyl] Allergy (Verified 12/12/19 09:12) CONTINUE taking the following medications amlodipine 10 mg PO DAILY 12/12/19 [History] atorvastatin 10 mg PO DAILY 12/12/19 [History] clonazepam [Klonopin] 0.5 mg PO HS 12/12/19 [History] esomeprazole magnesium 40 mg PO DAILY 12/12/19 [History] levothyroxine 50 mcg PO DAILY 12/12/19 [History] losartan 50 mg PO DAILY 12/12/19 [History] meclizine 12.5 mg PO BID 12/12/19 [History] meloxicam 7.5 mg PO DAILY 12/12/19 [History] metoprolol succinate 25 mg PO DAILY 12/12/19 [History] montelukast [Singulair] 10 mg PO DAILY 12/12/19 [History] - Review of Systems Constitutional: Weakness Eyes: No Symptoms Reported ENT: No Symptoms Reported Respiratory: Cough, Shortness of Breath Cardiovascular: No Symptoms Reported Gastrointestinal: No Symptoms Reported Genitourinary: No Symptoms Reported Musculoskeletal: No Symptoms Reported Skin: No Symptoms Reported Neurological: Weakness - Physical Exam Vital Signs: Temperature 98.0 F Pulse Rate [Left Brachial] 70 Pulse Rate 92 Respiratory Rate 18 Blood Pressure [Right Arm] 153/58 Blood Pressure [Left Arm] 112/59 Blood Pressure 118/54 O2 Sat by Pulse Oximetry 18 Oriented: Normal Eyes: Normal Ear: Normal Nose: Normal Respiratory: Diminished Throughout Cardiovascular: Normal. negative: S3, S4, Murmur : Normal Auscultation: Bowel Sounds: Normal Palpation: Normal Tenderness: Normal Skin: Normal Musculoskeletal: Normal Psychiatric: Normal Mood Description: Calm Affect: Normal Speech Pattern: Clear - Assessment/Plan (1) GI bleed Qualifiers: GI bleed type/associated pathology: unspecified gastrointestinal hemorrhage type Qualified Code(s): K92.2 - Gastrointestinal hemorrhage, unspecified Status: Acute (2) Urinary tract infection Qualifiers: Urinary tract infection type: acute cystitis Hematuria presence: without hematuria Qualified Code(s): N30.00 - Acute cystitis without hematuria Status: Acute (3) Leukocytosis Qualifiers: Leukocytosis type: unspecified Qualified Code(s): D72.829 - Elevated white blood cell count, unspecified Status: Acute (4) Thrombocytosis Status: Acute - Allergies Allergies/Adverse Reactions: Allergies Allergy/AdvReac Type Severity Reaction Status Date / Time ciprofloxacin [From Cipro] Allergy Verified 05/25/17 18:00 codeine Allergy Verified 05/25/17 18:00 metronidazole [From Flagyl] Allergy Verified 12/12/19 09:12
[2019-12-13] MEDS: PROTONIX INJ 40 MG VIAL 80 MG in NS 100 ML IV 80 ML IV SCH ×4 (02:08→22:26)
[2019-12-13 06:01] LABS: ALANINE AMINOTRANSFERASE 17 Units/L (12-78); ALBUMIN 2.6 g/dL (3.4-5.0); ALKALINE PHOSPHATASE 37 Units/L (46-116); ASPARTATE AMINO TRANSFERASE 13 Units/L (15-37); BLOOD UREA NITROGEN 17 mg/dL (7-18); CALCIUM 8.2 mg/dL (8.5-10.1); CARBON DIOXIDE 27.6 mmol/L (21-32); CHLORIDE 107 mmol/L (98-107); COR CA(FOR HYPOALB) 9.3 mg/dL (8.5-10.1); CREATININE 0.57 mg/dL (0.55-1.02); SODIUM 142 mmol/L (136-145); TOTAL PROTEIN 5.1 g/dL (6.4-8.2); eGFR NON BLACK RACES > 60 (>60)
[2019-12-13 06:03] LABS: BASOPHILS # (AUTO) 0.5 X10^3/uL (0.0-0.1); BASOPHILS % (AUTO) 2.7 % (0.2-1.0); EOSINOPHILS # (AUTO) 0.4 x10^3/uL (0.0-0.2); EOSINOPHILS % (AUTO) 2.1 % (0.9-2.9); HEMATOCRIT 23.5 % (36.0-47.0); LYMPHOCYTES # (AUTO) 2.6 X10^3/uL (1.3-2.9); LYMPHOCYTES % (AUTO) 12.4 % (21.0-51.0); MEAN CORPUSCULAR HEMOGLOBIN 31.8 pg (27.0-34.0); MEAN CORPUSCULAR HGB CONC 33.8 g/dL (33.0-35.0); MEAN PLATELET VOLUME 7.5 fL (7.4-11.0); MONOCYTES # (AUTO) 0.4 x10^3/uL (0.3-0.8); MONOCYTES % (AUTO) 1.8 % (0.0-13.0); NEUTROPHILS # (AUTO) 16.7 x10^3/uL (2.2-4.8); PLATELET COUNT 794 X10^3/uL (150.0-450.0); RED CELL DISTRIBUTION WIDTH 15.7 % (11.6-16.5); WHITE BLOOD COUNT 20.7 X10^3/uL (3.6-10.0)
[2019-12-13 06:23] LABS: PLATELET MORPHOLOGY COMMENT NORMAL (NORMAL)
[2019-12-13] MEDS ORDERED: POTASSIUM CHLORIDE LIQ 20 MEQ UDC PO PRN (06:24)
[2019-12-13] MEDS ORDERED: K-RIDER 10 MEQ/NS 100 ML 10 MEQ/100 ML BAG IV PRN (06:24)
[2019-12-13] MEDS ORDERED: KLOR-CON PO PRN (06:24)
[2019-12-13] MEDS ORDERED: POTASSIUM CHL 40 MEQ/NS 0.45% 500 ML IV PRN (06:24)
[2019-12-13] MEDS ORDERED: MICRO K EXTEN CAP 10 MEQ PO PRN (06:24)
[2019-12-13] MEDS ORDERED: POTASSIUM CHL 60 MEQ/NS 0.45% 500 ML IV PRN (06:24)
[2019-12-13] MEDS: ROCEPHIN VIAL 1 GRAM 1 G in NS 100 ML IV + SPIKE MINIBAG* 100 ML IV SCH (08:38)
[2019-12-13] MEDS ORDERED: STERILE WATER IRRIGATION IR ONE (09:06)
[2019-12-13] MEDS: ZOFRAN INJ 4 MG VIAL IVP PRN ×3 (11:30→23:30)
[2019-12-13 12:54] LABS: HEMATOCRIT 24.9 % (36.0-47.0); HEMOGLOBIN 8.5 g/dL (12.0-16.0)
[2019-12-13] MEDS ORDERED: DIPRIVAN VIAL 20 ML ONE (13:40)
[2019-12-13] MEDS: NS 1000 ML 1,000 ML IV SCH (14:03)
[2019-12-13] MEDS ORDERED: MIRALAX POWDER (255 GRAMS BTL) PO NR (15:05)
[2019-12-13] MEDS ORDERED: DULCOLAX TAB EC 5 MG PO ONE ×3 (15:06→20:00)
[2019-12-13] MEDS ORDERED: ZOFRAN INJ 4 MG VIAL ONE (17:32)
[2019-12-13 18:32] LABS: HEMOGLOBIN 8.4 g/dL (12.0-16.0)
[2019-12-13] MEDS: MAGNESIUM SULFATE 1 GRAM/100 mL PREMIX 1 GM/100 ML BAG IV PRN ×4 (20:00→22:55)
[2019-12-14] MEDS ORDERED: BENADRYL INJ 50 MG VIAL IVP ONE ×2 (02:04→22:25)
[2019-12-14] MEDS ORDERED: TYLENOL 325 MG TAB PO ONE (02:04)
[2019-12-14] MEDS: NS 1000 ML 1,000 ML IV SCH ×2 (02:30→15:44)
[2019-12-14] MEDS ORDERED: BENADRYL INJ 50 MG VIAL ONE ×2 (02:34→22:29)
[2019-12-14] MEDS ORDERED: NS 250 ML IV 250 ML IV ONE ×2 (02:34→22:07)
[2019-12-14 07:24] LABS: BASOPHILS # (AUTO) 0.3 X10^3/uL (0.0-0.1); BASOPHILS % (AUTO) 1.1 % (0.2-1.0); EOSINOPHILS # (AUTO) 0.2 x10^3/uL (0.0-0.2); EOSINOPHILS % (AUTO) 0.7 % (0.9-2.9); HEMATOCRIT 22.5 % (36.0-47.0); HEMOGLOBIN 7.9 g/dL (12.0-16.0); LYMPHOCYTES # (AUTO) 2.4 X10^3/uL (1.3-2.9); LYMPHOCYTES % (AUTO) 8.8 % (21.0-51.0); MEAN CORPUSCULAR HEMOGLOBIN 32.4 pg (27.0-34.0); MEAN CORPUSCULAR HGB CONC 34.9 g/dL (33.0-35.0); MEAN CORPUSCULAR VOLUME 92.9 fL (80.0-100.0); MEAN PLATELET VOLUME 7.1 fL (7.4-11.0); MONOCYTES # (AUTO) 0.5 x10^3/uL (0.3-0.8); NEUTROPHILS # (AUTO) 23.7 x10^3/uL (2.2-4.8); NEUTROPHILS % (AUTO) 87.4 % (42.0-75.0); PLATELET COUNT 757 X10^3/uL (150.0-450.0); RED BLOOD COUNT 2.42 X10^6/uL (3.5-5.4); RED CELL DISTRIBUTION WIDTH 15.5 % (11.6-16.5); WHITE BLOOD COUNT 27.1 X10^3/uL (3.6-10.0)
[2019-12-14 07:32] LABS: ALANINE AMINOTRANSFERASE 19 Units/L (12-78); ALBUMIN 2.5 g/dL (3.4-5.0); ALKALINE PHOSPHATASE 38 Units/L (46-116); ASPARTATE AMINO TRANSFERASE 17 Units/L (15-37); BLOOD UREA NITROGEN 14 mg/dL (7-18); CALCIUM 7.6 mg/dL (8.5-10.1); CARBON DIOXIDE 27.2 mmol/L (21-32); CHLORIDE 105 mmol/L (98-107); COR CA(FOR HYPOALB) 8.8 mg/dL (8.5-10.1); COR NA(FOR HYPERGLY) 138 mmol/L (136-145); CREATININE 0.63 mg/dL (0.55-1.02); MAGNESIUM 2.2 mg/dL (1.7-2.9); SODIUM 137 mmol/L (136-145); TOTAL PROTEIN 4.7 g/dL (6.4-8.2); eGFR NON BLACK RACES > 60 (>60)
[2019-12-14 07:37] LABS: BAND NEUTROPHILS % 2 % (0-10); PLATELET MORPHOLOGY COMMENT NORMAL (NORMAL)
--- NOTE | 2019-12-14 07:51 | RAD ---
HISTORYReason For Study acute GI bleed leukocytosis thrombocytosisSTUDYCHEST, 1 VIEWCOMPARISONChest film December 11, 2019FINDINGSThe trachea is midline. The cardiac silhouette is unremarkable . The lungs are clear without focal infiltrate or effusion. The bony thorax is unremarkable. The patient has undergone vertebroplasty at T12 surgical clips are seen the right upper quadrant the abdomen and right heart border. There is minimal interstitial airspace disease unchanged from recent film of 10 December but new since March 28, 2018IMPRESSIONNo change from chest film December 11, 2019 interstitial process in the left lung base retrocardiac region appears improved but incompletely resolved and may be atelectasis.Electronically signed by: LYNETTE SCHWARZ (Dec 14, 2019 07:19:26)
[2019-12-14] MEDS: ROCEPHIN VIAL 1 GRAM 1 G in NS 100 ML IV + SPIKE MINIBAG* 100 ML IV SCH (08:38)
[2019-12-14] MEDS: PROTONIX INJ 40 MG VIAL 80 MG in NS 100 ML IV 80 ML IV SCH ×3 (08:41→18:17)
--- NOTE | 2019-12-14 08:46 | PCM.PROG ---
Progress Note - Progress Note for Day of Date of Exam: 12/13/19 - Subjective Subjective: IS BEING TREATED FOR AN ACUTE GI BLEED, ANEMIA, UTI, LEUKOCYTOSIS, AND THROMBOCYTOSIS. TODAY, SHE IS ALERT AND ORIENTED, LYING IN BED ON MORNING ROUNDS. SHE REPORTS WEAKNESS AND LOWER ABDOMINAL PAIN TODAY. ON EXAMINATION, HEART IS REGULAR IN RATE AND RHYTHM. BILATERAL LUNGS ARE NOTED WITH DIMINISHED LUNG SOUNDS THROUGHOUT. ABDOMEN IS ROUND, SOFT, AND NOTED WITH MILD SUPRAPUBIC TENDERNESS TO PALPATION. HER VITALS THIS MORNING ARE: 98.9-81-20-99%-123/60. LABS WERE OBTAINED. ABNORMAL LAB VALUES INCLUDE THE FOLLOWING: WBC 20.7, RBC 2.50, HGB 8.0, HCT 23.5, PLT COUNT 794, CALCIUM 8.2, AST 13, ALK PHOS 37, TOTAL PROTEIN 5.1, ALBUMIN 2.6. URINE AND BLOOD CULTURES ARE PENDING. WE CONSULTED WITH DR.IRFAN FINLEYING PATIENTS SYMPTOMS AND FINDINGS. HE PLANS FOR AN EGD TODAY AND COLONOSCOPY ON THURSDAY. WE ARE IN AGREEMENT WITH PLANS. TIME SPENT WITH PHYSICIAN AND PATIENT WAS GREATER THAN 16 MINUTES. SHE IS CURRENTLY RECEIVING NORMAL SALINE AT 125 ML/HR, PROTONIX DRIP, ROCEPHIN 1G IV DAILY, AND KLONOPIN 0.5MG PO BID PRN. TODAY, WE WILL MONITOR H&H AND TRANSFUSE PRBC IF HER HEMOGLOBIN FALLS BELOW 8.0. OTHERWISE, WE WILL FOLLOW UP WITH AM LABS AND CONTINUE TO MONITOR. - Past Medical Family Social History Past Med/Fam/Surg Hx: No changes since H&P Allergies: Allergies ciprofloxacin [From Cipro] Allergy (Verified 05/25/17 18:00) codeine Allergy (Verified 05/25/17 18:00) metronidazole [From Flagyl] Allergy (Verified 12/12/19 09:12) - Review of Systems ROS: No change since H&P - Vital Signs and I&O's Vital Signs: Temperature 97.8 F Pulse Rate [Left Brachial] 70 Pulse Rate 86 Respiratory Rate 20 Blood Pressure [Right Arm] 153/58 Blood Pressure [Left Arm] 112/59 Blood Pressure 121/58 O2 Sat by Pulse Oximetry 97 Intake and Output: Intake & Output 12/11/19 12/12/19 12/13/19 12/14/19 11:59 11:59 11:59 11:59 Intake Total 961 / 961 3869 / 3869 2800 / 2800 Output Total 600 / 600 Balance 961 / 961 3269 / 3269 2800 / 2800 - Physical Exam Oriented: Normal Eyes: Normal Ear: Normal Nose: Normal Throat: Normal Cardiovascular: Normal. negative: S3, S4, Murmur : Normal Auscultation: Bowel Sounds: Normal Tenderness: Suprapubic, Mild Skin: Normal Musculoskeletal: Normal Psychiatric: Normal Mood Description: Calm Affect: Normal Speech Pattern: Clear, Appropriate - Laboratory and Diagnostics Result Diagrams: 12/14/19 07:10 12/14/19 07:10 Labs: 12/11/19 20:46 Urine,Catheterized Urine Culture - Final Escherichia Coli Laboratory WBC 27.1 X10^3/uL (3.6-10.0) H 12/14/19 07:10 RBC 2.42 X10^6/uL (3.5-5.4) L 12/14/19 07:10 Hgb 7.9 g/dL (12.0-16.0) L 12/14/19 07:10 Hct 22.5 % (36.0-47.0) L 12/14/19 07:10 MCV 92.9 fL (80.0-100.0) 12/14/19 07:10 MCH 32.4 pg (27.0-34.0) 12/14/19 07:10 MCHC 34.9 g/dL (33.0-35.0) 12/14/19 07:10 RDW 15.5 % (11.6-16.5) 12/14/19 07:10 Plt Count 757 X10^3/uL (150.0-450.0) H 12/14/19 07:10 Plt Count Comment Increased (ADEQUATE) A 12/14/19 07:10 MPV 7.1 fL (7.4-11.0) L 12/14/19 07:10 Neut % (Auto) 87.4 % (42.0-75.0) H 12/14/19 07:10 Lymph % (Auto) 8.8 % (21.0-51.0) L 12/14/19 07:10 [place] % (Auto) 2.0 % (0.0-13.0) 12/14/19 07:10 Eos % (Auto) 0.7 % (0.9-2.9) L 12/14/19 07:10 Baso % (Auto) 1.1 % (0.2-1.0) H 12/14/19 07:10 Neut # (Auto) 23.7 x10^3/uL (2.2-4.8) H 12/14/19 07:10 Lymph # (Auto) 2.4 X10^3/uL (1.3-2.9) 12/14/19 07:10 [place] # (Auto) 0.5 x10^3/uL (0.3-0.8) 12/14/19 07:10 Eos # (Auto) 0.2 x10^3/uL (0.0-0.2) 12/14/19 07:10 Baso # (Auto) 0.3 X10^3/uL (0.0-0.1) H 12/14/19 07:10 Absolute Nucleated RBC 0.0 /100WBC 12/14/19 07:10 Total Counted 100 12/14/19 07:10 Neutrophils % (Manual) 80 % (39-76) H 12/14/19 07:10 Band Neutrophils % 2 % (0-10) 12/14/19 07:10 Lymphocytes % (Manual) 12 % (13-43) L 12/14/19 07:10 Monocytes % (Manual) 6 % (4-9) 12/14/19 07:10 Eosinophils % (Manual) 4 % (0-6) 12/13/19 05:14 Plt Morphology Comment Normal (NORMAL) 12/14/19 07:10 RBC Morphology Normal (NORMAL) 12/14/19 07:10 PT 15.5 SECONDS (11.8-14.3) 12/12/19 04:55 INR Target Range - 12/12/19 04:55 INR 1.28 (0.8-1.3) 12/12/19 04:55 APTT 28.9 SECONDS (22.9-36.5) 12/12/19 04:55 PTT Comment - 12/12/19 04:55 Sodium 137 mmol/L (136-145) 12/14/19 07:10 Corrected Sodium 138 mmol/L (136-145) 12/14/19 07:10 Potassium 3.4 mmol/L (3.5-5.1) L 12/14/19 07:10 Chloride 105 mmol/L (98-107) 12/14/19 07:10 Carbon Dioxide 27.2 mmol/L (21-32) 12/14/19 07:10 BUN 14 mg/dL (7-18) 12/14/19 07:10 Creatinine 0.63 mg/dL (0.55-1.02) 12/14/19 07:10 Est GFR (MDRD) Af Amer > 60 (>60) 12/14/19 07:10 Est GFR (MDRD) Non-Af > 60 (>60) 12/14/19 07:10 Glucose 123 mg/dL (65-99) H 12/14/19 07:10 POC Glucose (mg/dL) 128 mg/dL (65-99) H 12/14/19 05:26 Lactic Acid 0.7 mmol/L (0.4-2.0) 12/11/19 19:06 Calcium 7.6 mg/dL (8.5-10.1) L 12/14/19 07:10 Corrected Calcium 8.8 mg/dL (8.5-10.1) 12/14/19 07:10 Magnesium 2.2 mg/dL (1.7-2.9) 12/14/19 07:10 Total Bilirubin 0.40 mg/dL (0.2-1.0) 12/14/19 07:10 AST 17 Units/L (15-37) 12/14/19 07:10 ALT 19 Units/L (12-78) 12/14/19 07:10 Alkaline Phosphatase 38 Units/L (46-116) L 12/14/19 07:10 Total Protein 4.7 g/dL (6.4-8.2) L 12/14/19 07:10 Albumin 2.5 g/dL (3.4-5.0) L 12/14/19 07:10 Globulin 2.2 g/dL (2.5-4.5) L 12/14/19 07:10 Albumin/Globulin Ratio 1.1 Ratio (1.1-2.1) 12/14/19 07:10 Specimen Type Catherized urine 12/11/19 20:46 Urine Color Yellow (YELLOW) 12/11/19 20:46 Urine Appearance Clear (CLEAR) 12/11/19 20:46 Urine pH 7.0 (5.0 - 8.0) 03 20:46 Ur Specific [place] 1.010 (1.000-1.030) 03 20:46 Urine Protein Negative (NEGATIVE) 12/11/19 20:46 Urine Glucose (UA) Negative (NEGATIVE) 12/11/19 20:46 Urine Ketones Negative (NEGATIVE) 12/11/19 20:46 Urine Occult Blood 1+ (NEGATIVE) 12/11/19 20:46 Urine Nitrite Negative (NEGATIVE) 12/11/19 20:46 Urine Bilirubin Negative (NEGATIVE) 12/11/19 20:46 Urine Urobilinogen Normal (NORMAL) 12/11/19 20:46 Ur Leukocyte Esterase 3+ (NEGATIVE) 03 20:46 Urine RBC None seen /HPF (0-3) 03 20:46 Urine WBC Tntc /HPF (0-5) A 12/11/19 20:46 Ur Squamous Epith Cells Few /HPF (NEGATIVE) 12/11/19 20:46 Urine Bacteria 1+ /HPF (NEGATIVE) 12/11/19 20:46 Urine Mucus Moderate /HPF (NEGATIVE) 12/11/19 20:46 Ur Culture Indicated? Yes/culture set up 12/11/19 20:46 Stool Description 75g pink clear lqd 12/11/19 18:11 Stl Occult Blood (IFOB) Positive (NEGATIVE) A 12/11/19 18:11 Tissue Pathology To follow 12/13/19 14:50 Blood Type A POSITIVE 12/11/19 23:05 Antibody Screen Negative 12/11/19 23:05 Crossmatch See Detail 12/11/19 23:05 - Plan (1) GI bleed Status: Acute Qualifiers: GI bleed type/associated pathology: unspecified gastrointestinal hemorrhage type Qualified Code(s): K92.2 - Gastrointestinal hemorrhage, unspecified Plan: PROTONIX DRIP, MONITOR H&H, EGD TODAY, COLONOSCOPY THURSDAY, CONTINUE TO MONITOR (2) Urinary tract infection Status: Acute Qualifiers: Urinary tract infection type: acute cystitis Hematuria presence: without hematuria Qualified Code(s): N30.00 - Acute cystitis without hematuria Plan: ROCEPHIN 1G IV DAILY, IV FLUIDS, CONTINUE TO MONITOR (3) Leukocytosis Status: Acute Qualifiers: Leukocytosis type: unspecified Qualified Code(s): D72.829 - Elevated white blood cell count, unspecified (4) Thrombocytosis Status: Acute
[2019-12-14] MEDS: ZOFRAN INJ 4 MG VIAL IVP PRN (09:05)
[2019-12-14] MEDS ORDERED: NS 500 ML IV 500 ML IV ONE (09:22)
[2019-12-14] MEDS: NS 500 ML IV 500 ML IV PRN (09:25)
[2019-12-14] MEDS: ZOSYN VIAL 4.5 GRAMS 4.5 G in NS 100 ML IV + SPIKE MINIBAG* 100 ML IV SCH ×3 (10:05→21:12)
[2019-12-14] MEDS ORDERED: STERILE WATER IRRIGATION IR ONE (12:52)
[2019-12-14] MEDS ORDERED: MIRALAX POWDER (255 GRAMS BTL) PO NR (14:00)
[2019-12-14] MEDS ORDERED: LR 1000 ML IV 1,000 ML IV ONE (14:15)
[2019-12-14] MEDS ORDERED: D5 LR 1000 ML 1,000 ML IV ONE (14:29)
[2019-12-14] MEDS ORDERED: DIPRIVAN VIAL 20 ML ONE ×2 (14:31→14:58)
[2019-12-14] MEDS ORDERED: DULCOLAX TAB EC 5 MG PO ONE ×2 (15:00→21:00)
[2019-12-14] MEDS: LIPITOR TAB 10 MG PO SCH (15:41)
[2019-12-14] MEDS: SINGULAIR TAB 10 MG PO SCH (15:41)
[2019-12-14] MEDS: SYNTHROID 50 mcg TAB PO SCH (15:41)
[2019-12-14 15:45] LABS: HEMATOCRIT 27.3 % (36.0-47.0); HEMOGLOBIN 9.3 g/dL (12.0-16.0)
[2019-12-14] MEDS: K-DUR TAB 20 MEQ PO PRN (21:12)
[2019-12-14] MEDS: KLONOPIN TAB 0.5 MG PO PRN (21:13)
[2019-12-14 21:50] LABS: HEMATOCRIT 22.5 % (36.0-47.0); HEMOGLOBIN 7.7 g/dL (12.0-16.0)
--- NOTE | 2019-12-14 22:11 | PCM.PROG ---
Progress Note - Progress Note for Day of Date of Exam: 12/14/19 - Subjective Subjective: IS BEING TREATED FOR AN ACUTE GI BLEED, ANEMIA, UTI, LEUKOCYTOSIS, AND THROMBOCYTOSIS. SHE RECEIVED ONE UNIT OF BLOOD THROUGHOUT THE NIGHT AND WILL RECEIVE ANOTHER THIS MORNING. TODAY, SHE IS ALERT AND ORIENTED, LYING IN BED ON MORNING ROUNDS. SHE REPORTS WEAKNESS AND CONTINUES WITH LOWER ABDOMINAL PAIN TODAY. ON EXAMINATION, HEART IS REGULAR IN RATE AND RHYTHM. BILATERAL LUNGS ARE NOTED WITH DIMINISHED LUNG SOUNDS THROUGHOUT. ABDOMEN IS ROUND, SOFT, AND NOTED WITH MILD SUPRAPUBIC TENDERNESS TO PALPATION. HER VITALS THIS MORNING ARE: 97.8-86-20-97%-121/58. LABS WERE OBTAINED. ABNORMAL LAB VALUES INCLUDE THE FOLLOWING: WBC INCREASED TO 27.1, RBC 2.42, HGB 7.9, HCT 22.5, PLT COUNT 757, POTASSIUM 3.4, GLUCOSE 123, CALCIUM 7.6, ALK PHOS 38, TOTAL PROTEIN 4.7, ALBUMIN 2.5. URINE AND BLOOD CULTURES ARE PENDING. WE CONSULTED WITH AND HE PLANS FOR A COLONOSCOPY TODAY. WE ARE IN AGREEMENT WITH PLANS. SHE IS CURRENTLY RECEIVING NORMAL SALINE AT 125 ML/HR, PROTONIX DRIP, ROCEPHIN 1G IV DAILY, AND KLONOPIN 0.5MG PO BID PRN. TODAY, WE WILL CONTINUE TO MONITOR H&H AND TRANSFUSE PRBC IF HER HEMOGLOBIN FALLS BELOW 8.0. WE WILL DISCONTINUE THE ROCEPHIN AND START ZOSYN IV TID. OTHERWISE, WE WILL FOLLOW UP WITH AM LABS AND CONTINUE TO MONITOR. - Past Medical Family Social History Past Med/Fam/Surg Hx: No changes since H&P Allergies: Allergies ciprofloxacin [From Cipro] Allergy (Verified 05/25/17 18:00) codeine Allergy (Verified 05/25/17 18:00) metronidazole [From Flagyl] Allergy (Verified 12/12/19 09:12) - Review of Systems ROS: No change since H&P - Vital Signs and I&O's Vital Signs: Temperature 98.1 F Pulse Rate [Left Brachial] 94 Pulse Rate 103 Respiratory Rate 20 Blood Pressure [Right Arm] 153/58 Blood Pressure [Left Arm] 145/68 Blood Pressure 179/83 O2 Sat by Pulse Oximetry 99 Intake and Output: Intake & Output 12/12/19 12/13/19 12/14/19 03/20 11:59 11:59 11:59 11:59 Intake Total 961 / 961 3869 / 3869 2800 / 2800 1293 / 1293 Output Total 600 / 600 Balance 961 / 961 3269 / 3269 2800 / 2800 1293 / 1293 - Physical Exam Oriented: Normal Eyes: Normal Ear: Normal Nose: Normal Throat: Normal Cardiovascular: Normal. negative: S3, S4, Murmur : Normal Auscultation: Bowel Sounds: Normal Palpation: Normal Tenderness: Suprapubic, Mild Skin: Normal Musculoskeletal: Normal Psychiatric: Normal Mood Description: Calm Affect: Normal Speech Pattern: Clear, Appropriate - Laboratory and Diagnostics Result Diagrams: 12/14/19 21:38 12/14/19 07:10 Labs: 12/11/19 19:09 Blood Blood Culture - Preliminary 12/11/19 19:06 Blood Blood Culture - Preliminary 12/11/19 20:46 Urine,Catheterized Urine Culture - Final Escherichia Coli Laboratory WBC 27.1 X10^3/uL (3.6-10.0) H 12/14/19 07:10 RBC 2.42 X10^6/uL (3.5-5.4) L 12/14/19 07:10 Hgb 7.7 g/dL (12.0-16.0) L 12/14/19 21:38 Hct 22.5 % (36.0-47.0) L 12/14/19 21:38 MCV 92.9 fL (80.0-100.0) 12/14/19 07:10 MCH 32.4 pg (27.0-34.0) 12/14/19 07:10 MCHC 34.9 g/dL (33.0-35.0) 12/14/19 07:10 RDW 15.5 % (11.6-16.5) 12/14/19 07:10 Plt Count 757 X10^3/uL (150.0-450.0) H 12/14/19 07:10 Plt Count Comment Increased (ADEQUATE) A 12/14/19 07:10 MPV 7.1 fL (7.4-11.0) L 12/14/19 07:10 Neut % (Auto) 87.4 % (42.0-75.0) H 12/14/19 07:10 Lymph % (Auto) 8.8 % (21.0-51.0) L 12/14/19 07:10 [place] % (Auto) 2.0 % (0.0-13.0) 12/14/19 07:10 Eos % (Auto) 0.7 % (0.9-2.9) L 12/14/19 07:10 Baso % (Auto) 1.1 % (0.2-1.0) H 12/14/19 07:10 Neut # (Auto) 23.7 x10^3/uL (2.2-4.8) H 12/14/19 07:10 Lymph # (Auto) 2.4 X10^3/uL (1.3-2.9) 12/14/19 07:10 [place] # (Auto) 0.5 x10^3/uL (0.3-0.8) 12/14/19 07:10 Eos # (Auto) 0.2 x10^3/uL (0.0-0.2) 12/14/19 07:10 Baso # (Auto) 0.3 X10^3/uL (0.0-0.1) H 12/14/19 07:10 Absolute Nucleated RBC 0.0 /100WBC 12/14/19 07:10 Total Counted 100 12/14/19 07:10 Neutrophils % (Manual) 80 % (39-76) H 12/14/19 07:10 Band Neutrophils % 2 % (0-10) 12/14/19 07:10 Lymphocytes % (Manual) 12 % (13-43) L 12/14/19 07:10 Monocytes % (Manual) 6 % (4-9) 12/14/19 07:10 Eosinophils % (Manual) 4 % (0-6) 12/13/19 05:14 Plt Morphology Comment Normal (NORMAL) 12/14/19 07:10 RBC Morphology Normal (NORMAL) 12/14/19 07:10 PT 15.5 SECONDS (11.8-14.3) 12/12/19 04:55 INR Target Range - 12/12/19 04:55 INR 1.28 (0.8-1.3) 12/12/19 04:55 APTT 28.9 SECONDS (22.9-36.5) 12/12/19 04:55 PTT Comment - 12/12/19 04:55 Sodium 137 mmol/L (136-145) 12/14/19 07:10 Corrected Sodium 138 mmol/L (136-145) 12/14/19 07:10 Potassium 3.4 mmol/L (3.5-5.1) L 12/14/19 07:10 Chloride 105 mmol/L (98-107) 12/14/19 07:10 Carbon Dioxide 27.2 mmol/L (21-32) 12/14/19 07:10 BUN 14 mg/dL (7-18) 12/14/19 07:10 Creatinine 0.63 mg/dL (0.55-1.02) 12/14/19 07:10 Est GFR (MDRD) Af Amer > 60 (>60) 12/14/19 07:10 Est GFR (MDRD) Non-Af > 60 (>60) 12/14/19 07:10 Glucose 123 mg/dL (65-99) H 12/14/19 07:10 POC Glucose (mg/dL) 138 mg/dL (65-99) H 12/14/19 20:11 Lactic Acid 0.7 mmol/L (0.4-2.0) 12/11/19 19:06 Calcium 7.6 mg/dL (8.5-10.1) L 12/14/19 07:10 Corrected Calcium 8.8 mg/dL (8.5-10.1) 12/14/19 07:10 Magnesium 2.2 mg/dL (1.7-2.9) 12/14/19 07:10 Total Bilirubin 0.40 mg/dL (0.2-1.0) 12/14/19 07:10 AST 17 Units/L (15-37) 12/14/19 07:10 ALT 19 Units/L (12-78) 12/14/19 07:10 Alkaline Phosphatase 38 Units/L (46-116) L 12/14/19 07:10 Total Protein 4.7 g/dL (6.4-8.2) L 12/14/19 07:10 Albumin 2.5 g/dL (3.4-5.0) L 12/14/19 07:10 Globulin 2.2 g/dL (2.5-4.5) L 12/14/19 07:10 Albumin/Globulin Ratio 1.1 Ratio (1.1-2.1) 12/14/19 07:10 Specimen Type Catherized urine 12/11/19 20:46 Urine Color Yellow (YELLOW) 03 20:46 Urine Appearance Clear (CLEAR) 12/11/19 20:46 Urine pH 7.0 (5.0 - 8.0) 03 20:46 Ur Specific [place] 1.010 (1.000-1.030) 03 20:46 Urine Protein Negative (NEGATIVE) 12/11/19 20:46 Urine Glucose (UA) Negative (NEGATIVE) 12/11/19 20:46 Urine Ketones Negative (NEGATIVE) 12/11/19 20:46 Urine Occult Blood 1+ (NEGATIVE) 12/11/19 20:46 Urine Nitrite Negative (NEGATIVE) 12/11/19 20:46 Urine Bilirubin Negative (NEGATIVE) 12/11/19 20:46 Urine Urobilinogen Normal (NORMAL) 12/11/19 20:46 Ur Leukocyte Esterase 3+ (NEGATIVE) 03 20:46 Urine RBC None seen /HPF (0-3) 03 20:46 Urine WBC Tntc /HPF (0-5) A 12/11/19 20:46 Ur Squamous Epith Cells Few /HPF (NEGATIVE) 12/11/19 20:46 Urine Bacteria 1+ /HPF (NEGATIVE) 12/11/19 20:46 Urine Mucus Moderate /HPF (NEGATIVE) 03 20:46 Ur Culture Indicated? Yes/culture set up 12/11/19 20:46 Stool Description 75g pink clear lqd 12/11/19 18:11 Stl Occult Blood (IFOB) Positive (NEGATIVE) A 12/11/19 18:11 Tissue Pathology To follow 12/13/19 14:50 Blood Type A POSITIVE 12/11/19 23:05 Antibody Screen Negative 12/11/19 23:05 Crossmatch See Detail 12/11/19 23:05 - Plan (1) GI bleed Status: Acute Qualifiers: GI bleed type/associated pathology: unspecified gastrointestinal hemorrhage type Qualified Code(s): K92.2 - Gastrointestinal hemorrhage, unspecified Plan: PROTONIX DRIP, MONITOR H&H, COLONOSCOPY TODAY, CONTINUE TO MONITOR (2) Urinary tract infection Status: Acute Qualifiers: Urinary tract infection type: acute cystitis Hematuria presence: without hematuria Qualified Code(s): N30.00 - Acute cystitis without hematuria Plan: ZOSYN IV TID, IV FLUIDS, CONTINUE TO MONITOR (3) Leukocytosis Status: Acute Qualifiers: Leukocytosis type: unspecified Qualified Code(s): D72.829 - Elevated white blood cell count, unspecified (4) Thrombocytosis Status: Acute
[2019-12-14] MEDS: TYLENOL 325 MG TAB PO PRN (22:36)
[2019-12-15] MEDS ORDERED: NS 250 ML IV 250 ML IV ONE (02:12)
[2019-12-15] MEDS: NS 1000 ML 1,000 ML IV SCH ×2 (02:35→22:35)
[2019-12-15] MEDS: PROTONIX INJ 40 MG VIAL 80 MG in NS 100 ML IV 80 ML IV SCH ×2 (04:05→14:45)
[2019-12-15] MEDS: ZOSYN VIAL 4.5 GRAMS 4.5 G in NS 100 ML IV + SPIKE MINIBAG* 100 ML IV SCH ×3 (05:24→21:26)
--- NOTE | 2019-12-15 06:36 | RAD ---
HISTORYShortness of breathSTUDYCHEST, 1 [id number] heart is within normal limits in size. The piotr are normal. The aorta is calcified and [place] tack attic but unchanged. The lung trejo are clear. No pleural effusions are identified. Bony thorax is unremarkable.IMPRESSIONNo acute infiltratesElectronically signed by: CHONG MONTANEZ (Dec 15, 2019 06:35:27)
[2019-12-15 07:04] LABS: BASOPHILS # (AUTO) 0.2 X10^3/uL (0.0-0.1); BASOPHILS % (AUTO) 0.8 % (0.2-1.0); EOSINOPHILS # (AUTO) 0.6 x10^3/uL (0.0-0.2); HEMATOCRIT 30.4 % (36.0-47.0); LYMPHOCYTES # (AUTO) 2.2 X10^3/uL (1.3-2.9); LYMPHOCYTES % (AUTO) 7.6 % (21.0-51.0); MEAN CORPUSCULAR HEMOGLOBIN 30.9 pg (27.0-34.0); MEAN CORPUSCULAR HGB CONC 34.4 g/dL (33.0-35.0); MEAN PLATELET VOLUME 7.5 fL (7.4-11.0); MONOCYTES # (AUTO) 0.5 x10^3/uL (0.3-0.8); MONOCYTES % (AUTO) 1.9 % (0.0-13.0); NEUTROPHILS # (AUTO) 25.2 x10^3/uL (2.2-4.8); NEUTROPHILS % (AUTO) 87.7 % (42.0-75.0); PLATELET COUNT 593 X10^3/uL (150.0-450.0); RED BLOOD COUNT 3.38 X10^6/uL (3.5-5.4); RED CELL DISTRIBUTION WIDTH 15.2 % (11.6-16.5); WHITE BLOOD COUNT 28.7 X10^3/uL (3.6-10.0)
[2019-12-15 07:11] LABS: HEMOGLOBIN 10.5 g/dL (12.0-16.0)
[2019-12-15 07:17] LABS: ALANINE AMINOTRANSFERASE 17 Units/L (12-78); ALBUMIN 2.4 g/dL (3.4-5.0); ALKALINE PHOSPHATASE 39 Units/L (46-116); ASPARTATE AMINO TRANSFERASE 20 Units/L (15-37); BLOOD UREA NITROGEN 10 mg/dL (7-18); CALCIUM 7.7 mg/dL (8.5-10.1); CARBON DIOXIDE 26.5 mmol/L (21-32); CHLORIDE 108 mmol/L (98-107); SODIUM 139 mmol/L (136-145); TOTAL PROTEIN 4.6 g/dL (6.4-8.2); eGFR NON BLACK RACES > 60 (>60)
[2019-12-15 07:31] LABS: BAND NEUTROPHILS % 3 % (0-10); PLATELET MORPHOLOGY COMMENT NORMAL (NORMAL)
[2019-12-15] MEDS: LIPITOR TAB 10 MG PO SCH (09:50)
[2019-12-15] MEDS: SYNTHROID 50 mcg TAB PO SCH (09:51)
[2019-12-15] MEDS: SINGULAIR TAB 10 MG PO SCH (09:51)
[2019-12-15 12:19] LABS: HEMATOCRIT 28.7 % (36.0-47.0); HEMOGLOBIN 9.9 g/dL (12.0-16.0)
[2019-12-15 15:23] LABS: CRYPTOSPORIDIUM PARVUM ANTIGEN NEGATIVE (NEGATIVE); GIARDIA LAMBLIA ANTIGEN NEGATIVE (NEGATIVE)
[2019-12-15 18:12] LABS: HEMATOCRIT 32.1 % (36.0-47.0); HEMOGLOBIN 10.9 g/dL (12.0-16.0)
--- NOTE | 2019-12-15 18:21 | PCM.PROG ---
Progress Note - Progress Note for Day of Date of Exam: 12/15/19 - Subjective Subjective: IS BEING TREATED FOR AN ACUTE GI BLEED, ANEMIA, UTI, LEUKOCYTOSIS, AND THROMBOCYTOSIS. HAS RECEIVED A TOTAL OF FOUR UNITS OF BLOOD SINCE ADMISSION. TODAY, SHE IS ALERT AND ORIENTED, LYING IN BED ON MORNING ROUNDS. SHE REPORTS WEAKNESS AND CONTINUES WITH LOWER ABDOMINAL PAIN TODAY. ON EXAMINATION, HEART IS REGULAR IN RATE AND RHYTHM. BILATERAL LUNGS ARE NOTED WITH DIMINISHED LUNG SOUNDS THROUGHOUT. ABDOMEN IS ROUND, SOFT, AND NOTED WITH MILD SUPRAPUBIC TENDERNESS TO PALPATION. HER VITALS THIS MORNING ARE: 98.2-87-21-98%-134/63. LABS WERE OBTAINED. ABNORMAL LAB VALUES INCLUDE THE FOLLOWING: WBC 28.7, RBC 3.38, HGB 10.5, HCT 30.4, PLT COUNT 593, CHLORIDE 108, GLUCOSE 103, CALCIUM 7.7, ALK PHS 39, TOTAL PROTEIN 4.6, ALBUMIN 2.4. URINE AND BLOOD CULTURES ARE PENDING. PERFORMED A COLONOSCOPY YESTERDAY. IT REVEALED: Sigmoid diverticulosis, old blood clots noted extensively in sigmoid colon and blood is also noted in descending and the distal most transverse colon, however, the proximal transverse and ascending colon are completely clear and do not have any blood. Internal hemorrhoids. Findings are consistent with sigmoid diverticular bleed. SHE IS CURRENTLY RECEIVING NORMAL SALINE AT 125 ML/HR, PROTONIX DRIP, ZOSYN IV TID, AND KLONOPIN 0.5MG PO BID PRN. TODAY, WE WILL CONTINUE TO MONITOR H&H AND TRANSFUSE PRBC IF HER HEMOGLOBIN FALLS BELOW 8.0. WE WILL OBTAIN STOOL STUDIES TODAY. OTHERWISE, WE WILL FOLLOW UP WITH AM LABS AND CONTINUE TO MONITOR. - Past Medical Family Social History Past Med/Fam/Surg Hx: No changes since H&P Allergies: Allergies ciprofloxacin [From Cipro] Allergy (Verified 05/25/17 18:00) codeine Allergy (Verified 05/25/17 18:00) metronidazole [From Flagyl] Allergy (Verified 12/12/19 09:12) - Review of Systems ROS: No change since H&P - Vital Signs and I&O's Vital Signs: Temperature 98.1 F Pulse Rate [Left Brachial] 94 Pulse Rate 98 Respiratory Rate 18 Blood Pressure [Right Arm] 153/58 Blood Pressure [Left Arm] 145/68 Blood Pressure 138/63 O2 Sat by Pulse Oximetry 98 Intake and Output: Intake & Output 12/13/19 12/14/19 12/15/19 12/16/19 11:59 11:59 11:59 11:59 Intake Total 3869 / 3869 2800 / 2800 3243 / 3243 756 / 756 Output Total 600 / 600 Balance 3269 / 3269 2800 / 2800 3243 / 3243 756 / 756 - Physical Exam Oriented: Normal Eyes: Normal Ear: Normal Nose: Normal Throat: Normal Cardiovascular: Normal. negative: S3, S4, Murmur : Normal Auscultation: Bowel Sounds: Normal Tenderness: Suprapubic, Mild Skin: Normal Musculoskeletal: Normal Psychiatric: Normal Mood Description: Calm Affect: Normal Speech Pattern: Clear, Appropriate - Laboratory and Diagnostics Result Diagrams: 12/15/19 18:00 12/15/19 06:36 Labs: 12/15/19 14:07 Stool - Final 12/11/19 19:09 Blood Blood Culture - Preliminary 12/11/19 19:06 Blood Blood Culture - Preliminary 12/11/19 20:46 Urine,Catheterized Urine Culture - Final Escherichia Coli Laboratory WBC 28.7 X10^3/uL (3.6-10.0) H 12/15/19 06:36 RBC 3.38 X10^6/uL (3.5-5.4) L 12/15/19 06:36 Hgb 10.9 g/dL (12.0-16.0) L 12/15/19 18:00 Hct 32.1 % (36.0-47.0) L 12/15/19 18:00 MCV 90.0 fL (80.0-100.0) 12/15/19 06:36 MCH 30.9 pg (27.0-34.0) 12/15/19 06:36 MCHC 34.4 g/dL (33.0-35.0) 12/15/19 06:36 RDW 15.2 % (11.6-16.5) 12/15/19 06:36 Plt Count 593 X10^3/uL (150.0-450.0) H 12/15/19 06:36 Plt Count Comment Adequate (ADEQUATE) 12/15/19 06:36 MPV 7.5 fL (7.4-11.0) 12/15/19 06:36 Neut % (Auto) 87.7 % (42.0-75.0) H 12/15/19 06:36 Lymph % (Auto) 7.6 % (21.0-51.0) L 12/15/19 06:36 [place] % (Auto) 1.9 % (0.0-13.0) 12/15/19 06:36 Eos % (Auto) 2.0 % (0.9-2.9) 12/15/19 06:36 Baso % (Auto) 0.8 % (0.2-1.0) 12/15/19 06:36 Neut # (Auto) 25.2 x10^3/uL (2.2-4.8) H 12/15/19 06:36 Lymph # (Auto) 2.2 X10^3/uL (1.3-2.9) 12/15/19 06:36 [place] # (Auto) 0.5 x10^3/uL (0.3-0.8) 12/15/19 06:36 Eos # (Auto) 0.6 x10^3/uL (0.0-0.2) H 12/15/19 06:36 Baso # (Auto) 0.2 X10^3/uL (0.0-0.1) H 12/15/19 06:36 Absolute Nucleated RBC 0.0 /100WBC 12/15/19 06:36 Total Counted 100 12/15/19 06:36 Neutrophils % (Manual) 79 % (39-76) H 12/15/19 06:36 Band Neutrophils % 3 % (0-10) 12/15/19 06:36 Lymphocytes % (Manual) 10 % (13-43) L 12/15/19 06:36 Monocytes % (Manual) 6 % (4-9) 12/15/19 06:36 Eosinophils % (Manual) 2 % (0-6) 12/15/19 06:36 Plt Morphology Comment Normal (NORMAL) 12/15/19 06:36 RBC Morphology Normal (NORMAL) 12/15/19 06:36 PT 15.5 SECONDS (11.8-14.3) 12/12/19 04:55 INR Target Range - 12/12/19 04:55 INR 1.28 (0.8-1.3) 12/12/19 04:55 APTT 28.9 SECONDS (22.9-36.5) 12/12/19 04:55 PTT Comment - 12/12/19 04:55 Sodium 139 mmol/L (136-145) 12/15/19 06:36 Corrected Sodium TNP 12/15/19 06:36 Potassium 3.9 mmol/L (3.5-5.1) 12/15/19 06:36 Chloride 108 mmol/L (98-107) H 12/15/19 06:36 Carbon Dioxide 26.5 mmol/L (21-32) 12/15/19 06:36 BUN 10 mg/dL (7-18) 12/15/19 06:36 Creatinine 0.70 mg/dL (0.55-1.02) 12/15/19 06:36 Est GFR (MDRD) Af Amer > 60 (>60) 12/15/19 06:36 Est GFR (MDRD) Non-Af > 60 (>60) 12/15/19 06:36 Glucose 103 mg/dL (65-99) H 12/15/19 06:36 POC Glucose (mg/dL) 99 mg/dL (65-99) 12/15/19 16:57 Lactic Acid 0.7 mmol/L (0.4-2.0) 12/11/19 19:06 Calcium 7.7 mg/dL (8.5-10.1) L 12/15/19 06:36 Corrected Calcium 9.0 mg/dL (8.5-10.1) 12/15/19 06:36 Magnesium 2.2 mg/dL (1.7-2.9) 12/14/19 07:10 Total Bilirubin 0.50 mg/dL (0.2-1.0) 12/15/19 06:36 AST 20 Units/L (15-37) 12/15/19 06:36 ALT 17 Units/L (12-78) 12/15/19 06:36 Alkaline Phosphatase 39 Units/L (46-116) L 12/15/19 06:36 Total Protein 4.6 g/dL (6.4-8.2) L 12/15/19 06:36 Albumin 2.4 g/dL (3.4-5.0) L 12/15/19 06:36 Globulin 2.2 g/dL (2.5-4.5) L 12/15/19 06:36 Albumin/Globulin Ratio 1.1 Ratio (1.1-2.1) 12/15/19 06:36 Specimen Type Catherized urine 12/11/19 20:46 Urine Color Yellow (YELLOW) 12/11/19 20:46 Urine Appearance Clear (CLEAR) 12/11/19 20:46 Urine pH 7.0 (5.0 - 8.0) 12/11/19 20:46 Ur Specific [place] 1.010 (1.000-1.030) 12/11/19 20:46 Urine Protein Negative (NEGATIVE) 12/11/19 20:46 Urine Glucose (UA) Negative (NEGATIVE) 12/11/19 20:46 Urine Ketones Negative (NEGATIVE) 12/11/19 20:46 Urine Occult Blood 1+ (NEGATIVE) 12/11/19 20:46 Urine Nitrite Negative (NEGATIVE) 12/11/19 20:46 Urine Bilirubin Negative (NEGATIVE) 12/11/19 20:46 Urine Urobilinogen Normal (NORMAL) 12/11/19 20:46 Ur Leukocyte Esterase 3+ (NEGATIVE) 12/11/19 20:46 Urine RBC None seen /HPF (0-3) 12/11/19 20:46 Urine WBC Tntc /HPF (0-5) A 12/11/19 20:46 Ur Squamous Epith Cells Few /HPF (NEGATIVE) 12/11/19 20:46 Urine Bacteria 1+ /HPF (NEGATIVE) 12/11/19 20:46 Urine Mucus Moderate /HPF (NEGATIVE) 12/11/19 20:46 Ur Culture Indicated? Yes/culture set up 12/11/19 20:46 Stool Description 15g liquid 12/15/19 14:07 Stl Occult Blood (IFOB) Positive (NEGATIVE) A 12/11/19 18:11 Stool for White Cells Positive (NEGATIVE) A 12/15/19 14:07 Stl C. diff Tox B Gene Negative (NEGATIVE) 12/15/19 14:07 Stl C. diff [id number] Negative (NEGATIVE) 12/15/19 14:07 Stool H. pylori Ag Negative (NEGATIVE) 12/15/19 14:07 Cryptosporid parvum Ag Negative (NEGATIVE) 12/15/19 14:07 Giardia lamblia Ag Negative (NEGATIVE) 12/15/19 14:07 Tissue Pathology To follow 12/13/19 14:50 Blood Type A POSITIVE 12/11/19 23:05 Antibody Screen Negative 12/11/19 23:05 Crossmatch See Detail 12/11/19 23:05 - Plan (1) GI bleed Status: Acute Qualifiers: GI bleed type/associated pathology: unspecified gastrointestinal hemorrhage type Qualified Code(s): K92.2 - Gastrointestinal hemorrhage, unspecified Plan: PROTONIX DRIP, MONITOR H&H, CONTINUE TO MONITOR (2) Urinary tract infection Status: Acute Qualifiers: Urinary tract infection type: acute cystitis Hematuria presence: without hematuria Qualified Code(s): N30.00 - Acute cystitis without hematuria Plan: ZOSYN IV TID, IV FLUIDS, CONTINUE TO MONITOR (3) Leukocytosis Status: Acute Qualifiers: Leukocytosis type: unspecified Qualified Code(s): D72.829 - Elevated white blood cell count, unspecified (4) Thrombocytosis Status: Acute
[2019-12-15] MEDS: KLONOPIN TAB 0.5 MG PO PRN (21:50)
[2019-12-16] MEDS: PROTONIX INJ 40 MG VIAL 80 MG in NS 100 ML IV 80 ML IV SCH ×3 (00:11→21:52)
[2019-12-16 00:45] LABS: HEMATOCRIT 27.2 % (36.0-47.0); HEMOGLOBIN 9.3 g/dL (12.0-16.0)
[2019-12-16] MEDS: ZOSYN VIAL 4.5 GRAMS 4.5 G in NS 100 ML IV + SPIKE MINIBAG* 100 ML IV SCH ×3 (05:35→21:44)
[2019-12-16 05:40] LABS: EOSINOPHILS # (AUTO) 0.9 x10^3/uL (0.0-0.2); LYMPHOCYTES # (AUTO) 2.2 X10^3/uL (1.3-2.9); LYMPHOCYTES % (AUTO) 9.1 % (21.0-51.0); MONOCYTES # (AUTO) 0.4 x10^3/uL (0.3-0.8); NEUTROPHILS # (AUTO) 20.4 x10^3/uL (2.2-4.8)
[2019-12-16 05:46] LABS: BASOPHILS # (AUTO) 0.3 X10^3/uL (0.0-0.1); BASOPHILS % (AUTO) 1.3 % (0.2-1.0); EOSINOPHILS % (AUTO) 3.6 % (0.9-2.9); HEMATOCRIT 28.9 % (36.0-47.0); MEAN CORPUSCULAR HEMOGLOBIN 31.8 pg (27.0-34.0); MEAN CORPUSCULAR HGB CONC 34.7 g/dL (33.0-35.0); MEAN CORPUSCULAR VOLUME 91.6 fL (80.0-100.0); MONOCYTES % (AUTO) 1.7 % (0.0-13.0); NEUTROPHILS % (AUTO) 84.3 % (42.0-75.0); PLATELET COUNT 643 X10^3/uL (150.0-450.0); RED BLOOD COUNT 3.16 X10^6/uL (3.5-5.4); RED CELL DISTRIBUTION WIDTH 14.9 % (11.6-16.5); WHITE BLOOD COUNT 24.2 X10^3/uL (3.6-10.0)
[2019-12-16 05:46] LABS: ALANINE AMINOTRANSFERASE 16 Units/L (12-78); ALBUMIN 2.4 g/dL (3.4-5.0); ALKALINE PHOSPHATASE 41 Units/L (46-116); ASPARTATE AMINO TRANSFERASE 17 Units/L (15-37); BLOOD UREA NITROGEN 4 mg/dL (7-18); CALCIUM 7.8 mg/dL (8.5-10.1); CHLORIDE 107 mmol/L (98-107); COR CA(FOR HYPOALB) 9.1 mg/dL (8.5-10.1); CREATININE 0.62 mg/dL (0.55-1.02); SODIUM 140 mmol/L (136-145); TOTAL PROTEIN 4.8 g/dL (6.4-8.2); eGFR NON BLACK RACES > 60 (>60)
[2019-12-16 05:51] LABS: CARBON DIOXIDE 29.4 mmol/L (21-32)
[2019-12-16 06:15] LABS: PLATELET MORPHOLOGY COMMENT NORMAL (NORMAL)
[2019-12-16] MEDS: K-DUR TAB 20 MEQ PO PRN (06:31)
[2019-12-16] MEDS: MAGNESIUM SULFATE 1 GRAM/100 mL PREMIX 1 GM/100 ML BAG IV PRN ×4 (06:48→12:00)
--- NOTE | 2019-12-16 07:44 | RAD ---
HISTORYShortness of breathSTUDYCHEST, 1 [id number] heart is within normal limits in size. The piotr are normal. The aorta is mildly ectatic and calcified. The lungs are free of acute alveolar infiltrates. Bony thorax is unremarkable with the exception of poor visualization the right posterior 8th rib which could be postoperative this the clinical story is consistent.IMPRESSIONNo acute infiltratesElectronically signed by: CHONG MONTANEZ (Dec 16, 2019 07:43:01)
[2019-12-16] MEDS: SINGULAIR TAB 10 MG PO SCH (08:52)
[2019-12-16] MEDS: LIPITOR TAB 10 MG PO SCH (08:52)
[2019-12-16] MEDS: SYNTHROID 50 mcg TAB PO SCH (09:11)
[2019-12-16 11:02] LABS: BASOPHILS # (AUTO) 0.4 X10^3/uL (0.0-0.1); BASOPHILS % (AUTO) 1.7 % (0.2-1.0); EOSINOPHILS % (AUTO) 4.1 % (0.9-2.9); HEMATOCRIT 29.3 % (36.0-47.0); HEMOGLOBIN 10.1 g/dL (12.0-16.0); LYMPHOCYTES # (AUTO) 1.7 X10^3/uL (1.3-2.9); LYMPHOCYTES % (AUTO) 7.4 % (21.0-51.0); MEAN CORPUSCULAR HGB CONC 34.5 g/dL (33.0-35.0); MEAN CORPUSCULAR VOLUME 89.9 fL (80.0-100.0); MEAN PLATELET VOLUME 7.3 fL (7.4-11.0); MONOCYTES # (AUTO) 0.5 x10^3/uL (0.3-0.8); MONOCYTES % (AUTO) 2.1 % (0.0-13.0); NEUTROPHILS # (AUTO) 19.7 x10^3/uL (2.2-4.8); NEUTROPHILS % (AUTO) 84.7 % (42.0-75.0); PLATELET COUNT 630 X10^3/uL (150.0-450.0); RED BLOOD COUNT 3.26 X10^6/uL (3.5-5.4); RED CELL DISTRIBUTION WIDTH 15.2 % (11.6-16.5); WHITE BLOOD COUNT 23.3 X10^3/uL (3.6-10.0)
[2019-12-16 11:20] LABS: BAND NEUTROPHILS % 1 % (0-10); PLATELET MORPHOLOGY COMMENT NORMAL (NORMAL)
[2019-12-16 15:22] LABS: BASOPHILS # (AUTO) 0.2 X10^3/uL (0.0-0.1); BASOPHILS % (AUTO) 0.7 % (0.2-1.0); EOSINOPHILS % (AUTO) 3.7 % (0.9-2.9); HEMATOCRIT 30.3 % (36.0-47.0); HEMOGLOBIN 10.5 g/dL (12.0-16.0); LYMPHOCYTES # (AUTO) 2.2 X10^3/uL (1.3-2.9); LYMPHOCYTES % (AUTO) 7.9 % (21.0-51.0); MEAN CORPUSCULAR HEMOGLOBIN 31.6 pg (27.0-34.0); MEAN CORPUSCULAR HGB CONC 34.7 g/dL (33.0-35.0); MEAN PLATELET VOLUME 7.8 fL (7.4-11.0); MONOCYTES # (AUTO) 0.5 x10^3/uL (0.3-0.8); MONOCYTES % (AUTO) 1.9 % (0.0-13.0); NEUTROPHILS # (AUTO) 24.1 x10^3/uL (2.2-4.8); NEUTROPHILS % (AUTO) 85.8 % (42.0-75.0); PLATELET COUNT 754 X10^3/uL (150.0-450.0); RED BLOOD COUNT 3.33 X10^6/uL (3.5-5.4); RED CELL DISTRIBUTION WIDTH 15.6 % (11.6-16.5); WHITE BLOOD COUNT 28.1 X10^3/uL (3.6-10.0)
--- NOTE | 2019-12-16 15:34 | PCM.PROG ---
Progress Note - Progress Note for Day of Date of Exam: 12/16/19 - Subjective Subjective: IS BEING TREATED FOR AN ACUTE GI BLEED, ANEMIA, UTI, LEUKOCYTOSIS, AND THROMBOCYTOSIS. HAS RECEIVED A TOTAL OF FOUR UNITS OF BLOOD SINCE ADMISSION. HGB 10.1 THIS AM WITH SERIAL HGB ORDERED.TODAY, SHE IS ALERT AND ORIENTED, LYING IN BED ON MORNING ROUNDS. SHE REPORTS WEAKNESS AND CONTINUES WITH LOWER ABDOMINAL PAIN TODAY. ON EXAMINATION, HEART IS REGULAR IN RATE AND RHYTHM. BILATERAL LUNGS ARE NOTED WITH DIMINISHED LUNG SOUNDS THROUGHOUT. ABDOMEN IS ROUND, SOFT, AND NOTED WITH MILD SUPRAPUBIC TENDERNESS TO PALPATION. WE WILL CONTINUE TO MONITOR H&H AND TRANSFUSE PRBC IF HER HEMOGLOBIN FALLS BELOW 8.0. REPEAT OCCULT STOOL. DR MORROW IS CONSULTING, BP STABLE - Past Medical Family Social History Past Med/Fam/Surg Hx: No changes since H&P Allergies: Allergies ciprofloxacin [From Cipro] Allergy (Verified 05/25/17 18:00) codeine Allergy (Verified 05/25/17 18:00) metronidazole [From Flagyl] Allergy (Verified 12/12/19 09:12) - Review of Systems ROS: No change since H&P - Vital Signs and I&O's Vital Signs: Temperature 97.6 F Pulse Rate [Left Brachial] 94 Pulse Rate 108 Respiratory Rate 19 Blood Pressure [Right Arm] 153/58 Blood Pressure [Left Arm] 145/68 Blood Pressure 156/74 O2 Sat by Pulse Oximetry 96 Intake and Output: Intake & Output 12/14/19 12/15/19 12/16/19 12/17/19 11:59 11:59 11:59 11:59 Intake Total 2800 / 2800 3243 / 3243 2138 Balance 2800 / 2800 3243 / 3243 2138 - Physical Exam Oriented: Normal Eyes: Normal Ear: Normal Nose: Normal Throat: Normal Respiratory: Diminished Cardiovascular: Normal : Normal Auscultation: Bowel Sounds: Normal Tenderness: Suprapubic, Mild Skin: Normal Musculoskeletal: Normal Psychiatric: Normal Mood Description: Calm Affect: Normal Speech Pattern: Clear, Appropriate - Laboratory and Diagnostics Result Diagrams: 12/16/19 14:54 12/16/19 14:54 Labs: 12/15/19 14:07 Stool Stool Culture - Preliminary 12/15/19 14:07 Stool - Final 12/11/19 19:09 Blood Blood Culture - Final 12/11/19 19:06 Blood Blood Culture - Final 12/11/19 20:46 Urine,Catheterized Urine Culture - Final Escherichia Coli Laboratory WBC 28.1 X10^3/uL (3.6-10.0) H 12/16/19 14:54 RBC 3.33 X10^6/uL (3.5-5.4) L 12/16/19 14:54 Hgb 10.5 g/dL (12.0-16.0) L 12/16/19 14:54 Hct 30.3 % (36.0-47.0) L 12/16/19 14:54 MCV 91.0 fL (80.0-100.0) 12/16/19 14:54 MCH 31.6 pg (27.0-34.0) 12/16/19 14:54 MCHC 34.7 g/dL (33.0-35.0) 12/16/19 14:54 RDW 15.6 % (11.6-16.5) 12/16/19 14:54 Plt Count 754 X10^3/uL (150.0-450.0) H 12/16/19 14:54 Plt Count Comment Increased (ADEQUATE) A 12/16/19 10:38 MPV 7.8 fL (7.4-11.0) 12/16/19 14:54 Neut % (Auto) 85.8 % (42.0-75.0) H 12/16/19 14:54 Lymph % (Auto) 7.9 % (21.0-51.0) L 12/16/19 14:54 [place] % (Auto) 1.9 % (0.0-13.0) 12/16/19 14:54 Eos % (Auto) 3.7 % (0.9-2.9) H 12/16/19 14:54 Baso % (Auto) 0.7 % (0.2-1.0) 12/16/19 14:54 Neut # (Auto) 24.1 x10^3/uL (2.2-4.8) H 12/16/19 14:54 Lymph # (Auto) 2.2 X10^3/uL (1.3-2.9) 12/16/19 14:54 [place] # (Auto) 0.5 x10^3/uL (0.3-0.8) 12/16/19 14:54 Eos # (Auto) 1.0 x10^3/uL (0.0-0.2) H 12/16/19 14:54 Baso # (Auto) 0.2 X10^3/uL (0.0-0.1) H 12/16/19 14:54 Absolute Nucleated RBC 0.0 /100WBC 12/16/19 14:54 Total Counted 100 12/16/19 10:38 Neutrophils % (Manual) 82 % (39-76) H 12/16/19 10:38 Band Neutrophils % 1 % (0-10) 12/16/19 10:38 Lymphocytes % (Manual) 8 % (13-43) L 12/16/19 10:38 Monocytes % (Manual) 4 % (4-9) 12/16/19 10:38 Eosinophils % (Manual) 5 % (0-6) 12/16/19 10:38 Plt Morphology Comment Normal (NORMAL) 12/16/19 10:38 RBC Morphology Normal (NORMAL) 12/16/19 10:38 PT 15.5 SECONDS (11.8-14.3) 12/12/19 04:55 INR Target Range - 12/12/19 04:55 INR 1.28 (0.8-1.3) 12/12/19 04:55 APTT 28.9 SECONDS (22.9-36.5) 12/12/19 04:55 PTT Comment - 12/12/19 04:55 Sodium 140 mmol/L (136-145) 12/16/19 04:30 Corrected Sodium TNP 12/16/19 04:30 Potassium 3.3 mmol/L (3.5-5.1) L 12/16/19 14:54 Chloride 107 mmol/L (98-107) 12/16/19 04:30 Carbon Dioxide 29.4 mmol/L (21-32) 12/16/19 04:30 BUN 4 mg/dL (7-18) L 12/16/19 04:30 Creatinine 0.62 mg/dL (0.55-1.02) 12/16/19 04:30 Est GFR (MDRD) Af Amer > 60 (>60) 12/16/19 04:30 Est GFR (MDRD) Non-Af > 60 (>60) 12/16/19 04:30 Glucose 98 mg/dL (65-99) 12/16/19 04:30 POC Glucose (mg/dL) 128 mg/dL (65-99) H 12/16/19 12:50 Lactic Acid 0.7 mmol/L (0.4-2.0) 12/11/19 19:06 Calcium 7.8 mg/dL (8.5-10.1) L 12/16/19 04:30 Corrected Calcium 9.1 mg/dL (8.5-10.1) 12/16/19 04:30 Magnesium 1.4 mg/dL (1.7-2.9) L 12/16/19 04:46 Total Bilirubin 0.50 mg/dL (0.2-1.0) 12/16/19 04:30 AST 17 Units/L (15-37) 12/16/19 04:30 ALT 16 Units/L (12-78) 12/16/19 04:30 Alkaline Phosphatase 41 Units/L (46-116) L 12/16/19 04:30 Total Protein 4.8 g/dL (6.4-8.2) L 12/16/19 04:30 Albumin 2.4 g/dL (3.4-5.0) L 12/16/19 04:30 Globulin 2.4 g/dL (2.5-4.5) L 12/16/19 04:30 Albumin/Globulin Ratio 1.0 Ratio (1.1-2.1) L 12/16/19 04:30 Specimen Type Catherized urine 12/11/19 20:46 Urine Color Yellow (YELLOW) 12/11/19 20:46 Urine Appearance Clear (CLEAR) 12/11/19 20:46 Urine pH 7.0 (5.0 - 8.0) 12/11/19 20:46 Ur Specific [place] 1.010 (1.000-1.030) 12/11/19 20:46 Urine Protein Negative (NEGATIVE) 12/11/19 20:46 Urine Glucose (UA) Negative (NEGATIVE) 12/11/19 20:46 Urine Ketones Negative (NEGATIVE) 12/11/19 20:46 Urine Occult Blood 1+ (NEGATIVE) 12/11/19 20:46 Urine Nitrite Negative (NEGATIVE) 12/11/19 20:46 Urine Bilirubin Negative (NEGATIVE) 12/11/19 20:46 Urine Urobilinogen Normal (NORMAL) 12/11/19 20:46 Ur Leukocyte Esterase 3+ (NEGATIVE) 12/11/19 20:46 Urine RBC None seen /HPF (0-3) 12/11/19 20:46 Urine WBC Tntc /HPF (0-5) A 12/11/19 20:46 Ur Squamous Epith Cells Few /HPF (NEGATIVE) 12/11/19 20:46 Urine Bacteria 1+ /HPF (NEGATIVE) 12/11/19 20:46 Urine Mucus Moderate /HPF (NEGATIVE) 12/11/19 20:46 Ur Culture Indicated? Yes/culture set up 12/11/19 20:46 Stool Description 15g liquid 12/15/19 14:07 Stl Occult Blood (IFOB) Positive (NEGATIVE) A 12/11/19 18:11 Stool for White Cells Positive (NEGATIVE) A 12/15/19 14:07 Stl C. diff Tox B Gene Negative (NEGATIVE) 12/15/19 14:07 Stl C. diff [id number] Negative (NEGATIVE) 12/15/19 14:07 Stool H. pylori Ag Negative (NEGATIVE) 12/15/19 14:07 Cryptosporid parvum Ag Negative (NEGATIVE) 12/15/19 14:07 Giardia lamblia Ag Negative (NEGATIVE) 12/15/19 14:07 Tissue Pathology To follow 12/13/19 14:50 Blood Type A POSITIVE 12/16/19 10:38 Antibody Screen Negative 12/16/19 10:38 Crossmatch See Detail 12/16/19 10:38 - Plan (1) GI bleed Status: Acute Qualifiers: GI bleed type/associated pathology: unspecified gastrointestinal hemorrhage type Qualified Code(s): K92.2 - Gastrointestinal hemorrhage, unspecified Plan: PROTONIX DRIP, MONITOR H&H, CONTINUE TO MONITOR. CARDIAC MONITORING, BP CONTROL. IRFAN CONSULTING. OCCULT STOOLS, IV ATBX THERAPY (2) Diverticulitis Status: Acute (3) GERD (gastroesophageal reflux disease) Status: Chronic (4) Diabetes mellitus, type 2 Status: Chronic (5) History of CVA (cerebrovascular accident) Status: Chronic (6) Acute pain of left shoulder Status: Acute
[2019-12-16 15:40] LABS: BASOPHILS % (MANUAL) 1 % (0-1); PLATELET MORPHOLOGY COMMENT NORMAL (NORMAL)
[2019-12-16] MEDS ORDERED: NS + KCL 20 MEQ/L 1,000 ML IV ONE (16:54)
[2019-12-16] MEDS: NS 1000 ML 1,000 ML IV SCH (17:14)
[2019-12-16] MEDS: KLONOPIN TAB 0.5 MG PO PRN (20:59)
[2019-12-16 21:26] LABS: HEMATOCRIT 24.1 % (36.0-47.0); HEMOGLOBIN 8.2 g/dL (12.0-16.0)
[2019-12-17 03:24] LABS: BASOPHILS # (AUTO) 0.2 X10^3/uL (0.0-0.1); BASOPHILS % (AUTO) 1.3 % (0.2-1.0); EOSINOPHILS # (AUTO) 0.8 x10^3/uL (0.0-0.2); EOSINOPHILS % (AUTO) 4.2 % (0.9-2.9); HEMATOCRIT 21.4 % (36.0-47.0); HEMOGLOBIN 7.3 g/dL (12.0-16.0); LYMPHOCYTES # (AUTO) 1.6 X10^3/uL (1.3-2.9); LYMPHOCYTES % (AUTO) 8.6 % (21.0-51.0); MEAN CORPUSCULAR HEMOGLOBIN 31.6 pg (27.0-34.0); MEAN CORPUSCULAR HGB CONC 34.4 g/dL (33.0-35.0); MEAN CORPUSCULAR VOLUME 91.8 fL (80.0-100.0); MEAN PLATELET VOLUME 7.3 fL (7.4-11.0); MONOCYTES # (AUTO) 0.4 x10^3/uL (0.3-0.8); MONOCYTES % (AUTO) 2.2 % (0.0-13.0); NEUTROPHILS # (AUTO) 15.8 x10^3/uL (2.2-4.8); NEUTROPHILS % (AUTO) 83.7 % (42.0-75.0); PLATELET COUNT 629 X10^3/uL (150.0-450.0); RED BLOOD COUNT 2.33 X10^6/uL (3.5-5.4); RED CELL DISTRIBUTION WIDTH 15.4 % (11.6-16.5)
[2019-12-17 03:32] LABS: ALANINE AMINOTRANSFERASE 14 Units/L (12-78); ALKALINE PHOSPHATASE 34 Units/L (46-116); ASPARTATE AMINO TRANSFERASE 17 Units/L (15-37); BLOOD UREA NITROGEN 3 mg/dL (7-18); CALCIUM 7.6 mg/dL (8.5-10.1); CARBON DIOXIDE 30.4 mmol/L (21-32); CHLORIDE 108 mmol/L (98-107); COR CA(FOR HYPOALB) 9.2 mg/dL (8.5-10.1); CREATININE 0.59 mg/dL (0.55-1.02); MAGNESIUM 1.8 mg/dL (1.7-2.9); SODIUM 141 mmol/L (136-145); TOTAL PROTEIN 3.9 g/dL (6.4-8.2); eGFR NON BLACK RACES > 60 (>60)
[2019-12-17 03:49] LABS: BAND NEUTROPHILS % 2 % (0-10); WHITE BLOOD COUNT 18.8 X10^3/uL (3.6-10.0)
[2019-12-17 03:50] LABS: HYPOCHROMASIA SLIGHT; PLATELET MORPHOLOGY COMMENT NORMAL (NORMAL)
[2019-12-17] MEDS: ZOSYN VIAL 4.5 GRAMS 4.5 G in NS 100 ML IV + SPIKE MINIBAG* 100 ML IV SCH ×2 (06:09→15:04)
[2019-12-17] MEDS: LIPITOR TAB 10 MG PO SCH (09:57)
[2019-12-17] MEDS: SYNTHROID 50 mcg TAB PO SCH (09:57)
[2019-12-17] MEDS: SINGULAIR TAB 10 MG PO SCH (09:57)
[2019-12-17] MEDS: NS 500 ML IV 500 ML IV PRN (10:37)
[2019-12-17 14:22] LABS: HEMATOCRIT 32.6 % (36.0-47.0); HEMOGLOBIN 11.2 g/dL (12.0-16.0)
[2019-12-17] MEDS: PROTONIX INJ 40 MG VIAL 80 MG in NS 100 ML IV 80 ML IV SCH (16:02)
[2019-12-17] MEDS ORDERED: NS + KCL 20 MEQ/L 1,000 ML IV ONE (16:39)
[2019-12-17 18:11] VITALS: BP 163/71
== END 2019-12-17 17:10 | disposition short-term general hospital (02) | DRG 378 ==
LOC: ER 14:58 → ICU 22:00
PROVIDERS: ADMIT Family Medicine; ATTEND Internal Medicine
DX: R13.11 Dysphagia, oral phase; B96.29 Other Escherichia coli [E. coli] as the cause of diseases classified elsewhere; K20.8 Other esophagitis; D72.828 Other elevated white blood cell count; E11.65 Type 2 diabetes mellitus with hyperglycemia; K57.31 Diverticulosis of large intestine without perforation or abscess with bleeding; D47.3 Essential (hemorrhagic) thrombocythemia; R10.84 Generalized abdominal pain; N30.00 Acute cystitis without hematuria; K64.8 Other hemorrhoids; Z86.73 Personal history of transient ischemic attack (TIA), and cerebral infarction without residual deficits; K29.70 Gastritis, unspecified, without bleeding
CPT/HCPCS: 36415; 36430; 71010; 71045; 74176; 80053; 81001; 82270; 83605; 83630; 83735; 84132; 85014; 85018; 85025; 85610; 85730; 86850; 86900; 86901; 86922; 87040; 87045; 87086; 87088; 87186; 87328; 87329; 87338; 87427; 87449; 87493; 87899; 88305; 88342; 96365; 96374; 96375; 97110; 97162; 97165; 97535; 99100; 99285; A4217; A4222; C9113; J0696; J1200; J2405; J2543; J2704; J3475; J3490; J7030; J7040; J7050; J7120; P9016

== ENCOUNTER 2020-02-17 12:15 | Inpatient (IN) ==
[2020-02-17] MEDS ORDERED: ZOSYN VIAL 3.375 GRAMS 3.375 G in NS 100 ML IV + SPIKE MINIBAG* 100 ML IV ONE (14:25)
[2020-02-17] MEDS ORDERED: ZOFRAN INJ 4 MG VIAL IVP PRN (14:25)
[2020-02-17] MEDS: PEPCID 20 MG IV PREMIX* 20 MG/50 ML BAG IV SCH ×2 (15:50→21:18)
[2020-02-17] MEDS: NS 1000 ML 1,000 ML IV SCH (15:50)
[2020-02-17] MEDS: PROTONIX INJ 40 MG VIAL IVP SCH ×2 (15:51→21:18)
[2020-02-17 16:38] LABS: BASOPHILS # (AUTO) 0.4 X10^3/uL (0.0-0.1); BASOPHILS % (AUTO) 1.4 % (0.2-1.0); EOSINOPHILS # (AUTO) 0.4 x10^3/uL (0.0-0.2); EOSINOPHILS % (AUTO) 1.3 % (0.9-2.9); HEMATOCRIT 38.2 % (36.0-47.0); HEMOGLOBIN 12.6 g/dL (12.0-16.0); LYMPHOCYTES # (AUTO) 3.9 X10^3/uL (1.3-2.9); LYMPHOCYTES % (AUTO) 12.6 % (21.0-51.0); MEAN CORPUSCULAR HEMOGLOBIN 29.2 pg (27.0-34.0); MEAN CORPUSCULAR VOLUME 88.5 fL (80.0-100.0); MEAN PLATELET VOLUME 7.5 fL (7.4-11.0); MONOCYTES # (AUTO) 1.1 x10^3/uL (0.3-0.8); MONOCYTES % (AUTO) 3.6 % (0.0-13.0); NEUTROPHILS # (AUTO) 25.4 x10^3/uL (2.2-4.8); NEUTROPHILS % (AUTO) 81.1 % (42.0-75.0); PLATELET COUNT 954 X10^3/uL (150.0-450.0); RED BLOOD COUNT 4.32 X10^6/uL (3.5-5.4); RED CELL DISTRIBUTION WIDTH 15.8 % (11.6-16.5)
[2020-02-17 16:41] LABS: ALANINE AMINOTRANSFERASE 17 Units/L (12-78); ALBUMIN 3.6 g/dL (3.4-5.0); ALKALINE PHOSPHATASE 268 Units/L (46-116); ASPARTATE AMINO TRANSFERASE 24 Units/L (15-37); BLOOD UREA NITROGEN 20 mg/dL (7-18); CALCIUM 9.7 mg/dL (8.5-10.1); CARBON DIOXIDE 30.9 mmol/L (21-32); CHLORIDE 100 mmol/L (98-107); CREATININE 0.84 mg/dL (0.55-1.02); SODIUM 138 mmol/L (136-145); TOTAL PROTEIN 7.2 g/dL (6.4-8.2); eGFR NON BLACK RACES > 60 (>60)
[2020-02-17 16:42] LABS: WHITE BLOOD COUNT 31.3 X10^3/uL (3.6-10.0)
[2020-02-17 17:18] LABS: BASOPHILS % (MANUAL) 2 % (0-1); PLATELET MORPHOLOGY COMMENT NORMAL (NORMAL)
[2020-02-17] MEDS ORDERED: TYLENOL 325 MG TAB PO PRN (18:30)
--- NOTE | 2020-02-17 20:26 | CT ---
STUDY: CT ABDOMEN AND PELVIS WITHOUT IV CONTRASTCOMPARISON: December 11, 2019TECHNIQUE: Axial images were obtained of the abdomen and pelvis without IV contrast. Sagittal and coronal reformatted images were provided. All images were reviewed in a variety of windows and levels.RADIATION REDUCTION TECHNIQUE: Automated exposure control, adjustment of the mA or kV according to patient size, or iterative reconstruction techniques were used.HISTORY: N/V/DFINDINGS:Please note that lack of IV contrast does limit evaluation of the soft tissues and vascular detail.The visualized lower lung zones are clear. The heart size is normal. Stable pleural thickening is seen in the posterior right lower lobe. The etiology of this is not definitively clear.The liver, spleen, pancreas, adrenal glands, and kidneys are grossly unremarkable. Status post cholecystectomy.Atrophied uterus is noted. There is a prominent right-sided extrarenal pelvis which is stable from the prior exam. Left-sided nonobstructing nephrolithiasis is noted. No evidence of ureterolithiasis or obstructive uropathy.Marked mucosal thickening is seen along the inner lining of the greater curvature of the stomach which has been persistent since the prior study. This thickening measures 30 x 16 mm and is best demonstrated on axial image 15-29 and coronal image 16. Follow-up with GI for consideration of her upper endoscopy may be obtained if this is felt to be clinically indicated. This is worrisome for underlying malignancy.There is an anterior abdominal hernia containing omentum without inflammatory changes. Again noted is a tortuous dilated infrarenal abdominal aorta measuring 37 mm in diameter. Severe calcified atheromatous plaque burden is seen in the aorta bi common iliac arteries.Visualized portions of the small bowel appears grossly unremarkable. However there is a questionable small bowel diverticula seen in the 2nd and 3rd portion of the duodenum. Numerous diverticula are seen throughout the colon without definitive evidence of acute diverticulitis. Partial visualization of the appendix is normal. There is no evidence of a bowel obstruction. The previously described masslike thickening of the sigmoid colon is less apparent on the current exam which may be attributed to peristalsis on the previous exam.There is no evidence of retroperitoneal or mesenteric lymphadenopathy.The visualized bones demonstrate degenerative changes. There are no concerning lytic or blastic lesions identified. Status post vertebroplasty at the T12 vertebral body with mild extrusion of cement going into the disc space of T11-T12. This finding is unchanged from the prior exam. Postoperative changes are again noted in the left hip.IMPRESSION:1. Marked mucosal thickening along the inner lining of the greater curvature of the stomach is seen measuring up to 30 mm in thickness as detailed above. Overall this finding is worrisome for underlying malignancy. Follow-up with GI consultation and consideration for upper endoscopy may be obtained if this is felt to be clinically indicated and not contraindicated.2. Stable infrarenal abdominal aortic aneurysm is seen with severe calcification and atheromatous plaque burden along the aorta bi common iliac vasculature.3. 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 There is no evidence of bowel obstruction4. The previously described soft tissue like thickening in the sigmoid colon in association with the diverticula is less apparent on the current examination and may have been attributed to fecal material or peristaltic activity on the prior examination.Electronically signed by: Param Lundberg (February 17, 2020 20:24:35)
[2020-02-17] MEDS: ZOSYN VIAL 3.375 GRAMS 3.375 G in NS 100 ML IV + SPIKE MINIBAG* 100 ML IV SCH ×2 (21:17)
[2020-02-18 01:47] LABS: BILIRUBIN,URINE NEGATIVE (NEGATIVE); BLOOD/HEMOGLOBIN,URINE NEGATIVE (NEGATIVE); GLUCOSE, URINE NEGATIVE (NEGATIVE); KETONES,URINE NEGATIVE (NEGATIVE); LEUKOCYTE ESTERASE ,URINE NEGATIVE (NEGATIVE); NITRITES,URINE NEGATIVE (NEGATIVE); PROTEIN,URINE NEGATIVE (NEGATIVE); UROBILINOGEN,URINE NORMAL (NORMAL)
[2020-02-18 01:49] LABS: APPEARANCE,URINE HAZY (CLEAR); COLOR,URINE YELLOW (YELLOW)
[2020-02-18] MEDS: NS 1000 ML 1,000 ML IV SCH ×2 (06:08→15:35)
[2020-02-18] MEDS: ZOSYN VIAL 3.375 GRAMS 3.375 G in NS 100 ML IV + SPIKE MINIBAG* 100 ML IV SCH ×3 (06:08→21:32)
[2020-02-18 06:10] LABS: BASOPHILS # (AUTO) 0.5 X10^3/uL (0.0-0.1); BASOPHILS % (AUTO) 2.4 % (0.2-1.0); EOSINOPHILS # (AUTO) 0.5 x10^3/uL (0.0-0.2); EOSINOPHILS % (AUTO) 2.4 % (0.9-2.9); HEMOGLOBIN 11.8 g/dL (12.0-16.0); LYMPHOCYTES # (AUTO) 2.8 X10^3/uL (1.3-2.9); LYMPHOCYTES % (AUTO) 13.3 % (21.0-51.0); MEAN CORPUSCULAR HEMOGLOBIN 29.1 pg (27.0-34.0); MEAN CORPUSCULAR HGB CONC 32.7 g/dL (33.0-35.0); MEAN PLATELET VOLUME 7.5 fL (7.4-11.0); MONOCYTES # (AUTO) 0.9 x10^3/uL (0.3-0.8); MONOCYTES % (AUTO) 4.2 % (0.0-13.0); NEUTROPHILS # (AUTO) 16.5 x10^3/uL (2.2-4.8); NEUTROPHILS % (AUTO) 77.7 % (42.0-75.0); PLATELET COUNT 951 X10^3/uL (150.0-450.0); RED BLOOD COUNT 4.04 X10^6/uL (3.5-5.4); RED CELL DISTRIBUTION WIDTH 15.8 % (11.6-16.5); WHITE BLOOD COUNT 21.3 X10^3/uL (3.6-10.0)
[2020-02-18 06:24] LABS: ALANINE AMINOTRANSFERASE 14 Units/L (12-78); ALBUMIN 3.1 g/dL (3.4-5.0); ALKALINE PHOSPHATASE 231 Units/L (46-116); ASPARTATE AMINO TRANSFERASE 23 Units/L (15-37); BLOOD UREA NITROGEN 13 mg/dL (7-18); CARBON DIOXIDE 31.1 mmol/L (21-32); CHLORIDE 103 mmol/L (98-107); COR CA(FOR HYPOALB) 9.7 mg/dL (8.5-10.1); CREATININE 0.85 mg/dL (0.55-1.02); SODIUM 138 mmol/L (136-145); TOTAL PROTEIN 6.4 g/dL (6.4-8.2); eGFR NON BLACK RACES > 60 (>60)
[2020-02-18 07:13] LABS: BAND NEUTROPHILS % 2 % (0-10); BASOPHILS % (MANUAL) 2 % (0-1); PLATELET MORPHOLOGY COMMENT NORMAL (NORMAL)
[2020-02-18 08:40] VITALS: BMI 23.2
[2020-02-18] MEDS ORDERED: ULTRAM PO PRN (09:37)
[2020-02-18] MEDS ORDERED: ZOFRAN TAB 4 MG PO PRN (09:37)
[2020-02-18] MEDS: PROTONIX INJ 40 MG VIAL IVP SCH ×2 (09:43→21:14)
[2020-02-18] MEDS: PEPCID 20 MG IV PREMIX* 20 MG/50 ML BAG IV SCH ×2 (09:43→21:15)
--- NOTE | 2020-02-18 09:54 | PCM.PROG ---
Progress Note Progress Note for Day of Date of Exam: 02/18/20 Subjective Subjective: Pt is a 89 yo f admitted for nausea/vomiting, diarrhea, and RLE cellulitis. She is sitting up in bed this morning. Labs/imaging:Wbc 31>21, Hgb 11.8, Plt 951, Na 138, K 4.3, Cr 0.85. BloodCx/StoolCx pending. Her CTAP:IMPRESSION:1. Marked mucosal thickening along the inner lining of the greater curvature of the stomach is seen measuring up to 30 mm in thickness as detailed above. Overall this finding is worrisome for underlying malignancy. Will consult general surgery-Dr Manzano for evaluation and recs. Continue IVF and abx:Zosyn. Will continue to monitor and follow up labs in the morning. Past Medical Family Social History Past Med/Fam/Surg Hx: No changes since H&P Allergies: Allergies ciprofloxacin [From Cipro] Allergy (Verified 05/25/17 18:00) codeine Allergy (Verified 05/25/17 18:00) metronidazole [From Flagyl] Allergy (Verified 12/12/19 09:12) Review of Systems ROS: No change since H&P Vital Signs and I&O's Vital Signs: Temperature 98.1 F Pulse Rate [Left Brachial] 82 Respiratory Rate 20 Blood Pressure [Right Arm] 119/66 Blood Pressure [Left Arm] 156/71 Blood Pressure 163/71 O2 Sat by Pulse Oximetry 93 Intake and Output: Intake & Output 02/15/20 02/16/20 02/17/20 02/18/20 23:59 23:59 23:59 23:59 Intake Total 1050 / 1050 760 / 760 Output Total 600 / 600 Balance 1050 / 1050 160 / 160 Physical Exam Oriented: Normal Eyes: Normal Ear: Normal Nose: Normal Respiratory: Normal Cardiovascular: Systolic and Murmur : Normal Auscultation: Bowel Sounds: Normal Tenderness: Normal Skin: Wound (RLE) Musculoskeletal: Normal Mood Description: Calm Speech Pattern: Clear and Appropriate Laboratory and Diagnostics Result Diagrams: 02/18/20 05:43 02/18/20 05:43 Labs: 02/17/20 17:20 Leg - Right Gram Stain - Final Laboratory WBC 21.3 X10^3/uL (3.6-10.0) H D 02/18/20 05:43 RBC 4.04 X10^6/uL (3.5-5.4) 02/18/20 05:43 Hgb 11.8 g/dL (12.0-16.0) L 02/18/20 05:43 Hct 36.0 % (36.0-47.0) 02/18/20 05:43 MCV 89.0 fL (80.0-100.0) 02/18/20 05:43 MCH 29.1 pg (27.0-34.0) 02/18/20 05:43 MCHC 32.7 g/dL (33.0-35.0) L 02/18/20 05:43 RDW 15.8 % (11.6-16.5) 02/18/20 05:43 Plt Count 951 X10^3/uL (150.0-450.0) H 02/18/20 05:43 Plt Count Comment Increased (ADEQUATE) A 02/18/20 05:43 MPV 7.5 fL (7.4-11.0) 02/18/20 05:43 Neut % (Auto) 77.7 % (42.0-75.0) H 02/18/20 05:43 Lymph % (Auto) 13.3 % (21.0-51.0) L 02/18/20 05:43 [place] % (Auto) 4.2 % (0.0-13.0) 02/18/20 05:43 Eos % (Auto) 2.4 % (0.9-2.9) 02/18/20 05:43 Baso % (Auto) 2.4 % (0.2-1.0) H 02/18/20 05:43 Neut # (Auto) 16.5 x10^3/uL (2.2-4.8) H 02/18/20 05:43 Lymph # (Auto) 2.8 X10^3/uL (1.3-2.9) 02/18/20 05:43 [place] # (Auto) 0.9 x10^3/uL (0.3-0.8) H 02/18/20 05:43 Eos # (Auto) 0.5 x10^3/uL (0.0-0.2) H 02/18/20 05:43 Baso # (Auto) 0.5 X10^3/uL (0.0-0.1) H 02/18/20 05:43 Absolute Nucleated RBC 0.0 /100WBC 02/18/20 05:43 Total Counted 100 02/18/20 05:43 Neutrophils % (Manual) 78 % (39-76) H 02/18/20 05:43 Band Neutrophils % 2 % (0-10) 02/18/20 05:43 Lymphocytes % (Manual) 12 % (13-43) L 02/18/20 05:43 Monocytes % (Manual) 4 % (4-9) 02/18/20 05:43 Eosinophils % (Manual) 2 % (0-6) 02/18/20 05:43 Basophils % (Manual) 2 % (0-1) H 02/18/20 05:43 Plt Morphology Comment Normal (NORMAL) 02/18/20 05:43 RBC Morphology Normal (NORMAL) 02/18/20 05:43 ESR 14 MM/HOUR (0-20) 02/17/20 16:16 Sodium 138 mmol/L (136-145) 02/18/20 05:43 Corrected Sodium TNP 02/18/20 05:43 Potassium 4.3 mmol/L (3.5-5.1) 02/18/20 05:43 Chloride 103 mmol/L (98-107) 02/18/20 05:43 Carbon Dioxide 31.1 mmol/L (21-32) 02/18/20 05:43 BUN 13 mg/dL (7-18) 02/18/20 05:43 Creatinine 0.85 mg/dL (0.55-1.02) 02/18/20 05:43 Est GFR (MDRD) Af Amer > 60 (>60) 02/18/20 05:43 Est GFR (MDRD) Non-Af > 60 (>60) 02/18/20 05:43 Glucose 94 mg/dL (65-99) 02/18/20 05:43 Calcium 9.0 mg/dL (8.5-10.1) 02/18/20 05:43 Corrected Calcium 9.7 mg/dL (8.5-10.1) 02/18/20 05:43 Total Bilirubin 0.20 mg/dL (0.2-1.0) 02/18/20 05:43 AST 23 Units/L (15-37) 02/18/20 05:43 ALT 14 Units/L (12-78) 02/18/20 05:43 Alkaline Phosphatase 231 Units/L (46-116) H 02/18/20 05:43 C-Reactive Protein 1.10 mg/L (0-3.0) 02/17/20 16:16 Total Protein 6.4 g/dL (6.4-8.2) 02/18/20 05:43 Albumin 3.1 g/dL (3.4-5.0) L 02/18/20 05:43 Globulin 3.3 g/dL (2.5-4.5) 02/18/20 05:43 Albumin/Globulin Ratio 0.9 Ratio (1.1-2.1) L 02/18/20 05:43 Specimen Type Clean catch urine 02/18/20 01:30 Urine Color Yellow (YELLOW) 02/18/20 01:30 Urine Appearance Hazy (CLEAR) 02/18/20 01:30 Urine pH 8.0 (5.0 - 8.0) 02/18/20 01:30 Ur Specific [place] 1.010 (1.000-1.030) 02/18/20 01:30 Urine Protein Negative (NEGATIVE) 02/18/20 01:30 Urine Glucose (UA) Negative (NEGATIVE) 02/18/20 01:30 Urine Ketones Negative (NEGATIVE) 02/18/20 01:30 Urine Occult Blood Negative (NEGATIVE) 02/18/20 01:30 Urine Nitrite Negative (NEGATIVE) 02/18/20 01:30 Urine Bilirubin Negative (NEGATIVE) 02/18/20 01:30 Urine Urobilinogen Normal (NORMAL) 02/18/20 01:30 Ur Leukocyte Esterase Negative (NEGATIVE) 02/18/20 01:30 Plan (1) Cellulitis: Status: Acute Plan: Continue antibiotics (2) Diarrhea: Status: Acute Plan: IVF, Stool studies/culture Abnormal CTAB>consulted surgery (3) Thrombocytosis: Status: Acute (4) Leukocytosis: Status: Acute Qualifiers: Leukocytosis type: unspecified Qualified Code(s): D72.829 - Elevated white blood cell count, unspecified (5) Dementia: Status: Chronic (6) Essential hypertension: Status: Chronic
[2020-02-18] MEDS: COZAAR PO SCH (10:53)
[2020-02-18] MEDS: LASIX PO SCH (10:54)
[2020-02-18] MEDS: NORVASC TAB 10 MG PO SCH (10:55)
[2020-02-18] MEDS: SYNTHROID 50 mcg TAB PO SCH (10:55)
[2020-02-18] MEDS: KLONOPIN TAB 0.5 MG PO PRN ×2 (10:55→21:14)
[2020-02-18] MEDS: LIPITOR TAB 10 MG PO SCH (11:00)
[2020-02-18] MEDS: NORCO 5/325 MG TAB PO PRN ×2 (11:00→21:14)
[2020-02-18] MEDS: BACTROBAN CREAM TOP SCH (14:25)
[2020-02-18] MEDS: ZANAFLEX PO SCH (21:14)
[2020-02-18] MEDS: COLACE CAP 100 MG PO PRN (21:33)
[2020-02-19] MEDS: ZOSYN VIAL 3.375 GRAMS 3.375 G in NS 100 ML IV + SPIKE MINIBAG* 100 ML IV SCH ×3 (05:03→21:01)
[2020-02-19] MEDS: NS 1000 ML 1,000 ML IV SCH ×2 (05:03→18:40)
[2020-02-19 06:18] LABS: BASOPHILS # (AUTO) 0.8 X10^3/uL (0.0-0.1); BASOPHILS % (AUTO) 3.9 % (0.2-1.0); EOSINOPHILS # (AUTO) 0.6 x10^3/uL (0.0-0.2); EOSINOPHILS % (AUTO) 2.9 % (0.9-2.9); HEMATOCRIT 34.9 % (36.0-47.0); HEMOGLOBIN 11.5 g/dL (12.0-16.0); LYMPHOCYTES % (AUTO) 15.2 % (21.0-51.0); MEAN CORPUSCULAR HEMOGLOBIN 29.4 pg (27.0-34.0); MEAN CORPUSCULAR HGB CONC 32.9 g/dL (33.0-35.0); MEAN CORPUSCULAR VOLUME 89.2 fL (80.0-100.0); MEAN PLATELET VOLUME 7.6 fL (7.4-11.0); MONOCYTES # (AUTO) 0.8 x10^3/uL (0.3-0.8); NEUTROPHILS # (AUTO) 14.6 x10^3/uL (2.2-4.8); PLATELET COUNT 827 X10^3/uL (150.0-450.0); RED BLOOD COUNT 3.91 X10^6/uL (3.5-5.4); RED CELL DISTRIBUTION WIDTH 15.7 % (11.6-16.5); WHITE BLOOD COUNT 19.7 X10^3/uL (3.6-10.0)
[2020-02-19 06:30] LABS: ALANINE AMINOTRANSFERASE 14 Units/L (12-78); ALKALINE PHOSPHATASE 210 Units/L (46-116); ASPARTATE AMINO TRANSFERASE 16 Units/L (15-37); BLOOD UREA NITROGEN 12 mg/dL (7-18); CALCIUM 8.8 mg/dL (8.5-10.1); CARBON DIOXIDE 30.2 mmol/L (21-32); CHLORIDE 103 mmol/L (98-107); COR CA(FOR HYPOALB) 9.6 mg/dL (8.5-10.1); SODIUM 138 mmol/L (136-145); TOTAL PROTEIN 6.2 g/dL (6.4-8.2); eGFR NON BLACK RACES > 60 (>60)
[2020-02-19 06:50] LABS: BAND NEUTROPHILS % 3 % (0-10); BASOPHILS % (MANUAL) 2 % (0-1); METAMYELOCYTES % 2; PLATELET MORPHOLOGY COMMENT NORMAL (NORMAL)
[2020-02-19 07:23] LABS: AMYLASE 22 Units/L (25-115); LIPASE 68 Units/L (73-393)
--- NOTE | 2020-02-19 08:47 | PCM.PROG ---
Progress Note Progress Note for Day of Date of Exam: 02/19/20 Subjective Subjective: Pt is a 89 yo f admitted for nausea/vomiting, diarrhea, and RLE cellulitis. She is sitting up in bed this morning. Labs/imaging:Wbc 19.7, Hgb 11.5, Plt 827, Na 138, K 4.0, Cr 0.8. BloodCx/StoolCx pending. She had abnormal CTAP showing marked mucosal thickening along the inner lining of the greater curvature of the stomach. General surgery-Dr Manzano consulted, scheduled for EGD, CEA pending. WoundCx positive for staph and yeast, will add ketoconazole cream to area. Continue IVF and abx:Zosyn. Will continue to monitor and follow up labs in the morning. Past Medical Family Social History Past Med/Fam/Surg Hx: No changes since H&P Allergies: Allergies ciprofloxacin [From Cipro] Allergy (Verified 05/25/17 18:00) codeine Allergy (Verified 05/25/17 18:00) metronidazole [From Flagyl] Allergy (Verified 12/12/19 09:12) Review of Systems ROS: No change since H&P Vital Signs and I&O's Vital Signs: Temperature 98.1 F Pulse Rate [Left Brachial] 71 Respiratory Rate 20 Blood Pressure [Right Arm] 122/60 Blood Pressure [Left Arm] 156/71 Blood Pressure 163/71 O2 Sat by Pulse Oximetry 93 Intake and Output: Intake & Output 02/16/20 02/17/20 02/18/20 02/19/20 23:59 23:59 23:59 23:59 Intake Total 1050 / 1050 3040 / 3040 820 / 820 Output Total 3000 / 3000 Balance 1050 / 1050 40 / 40 820 / 820 Physical Exam Oriented: Normal Eyes: Normal Ear: Normal Nose: Normal Respiratory: Normal Cardiovascular: Systolic and Murmur : Normal Auscultation: Bowel Sounds: Normal Tenderness: Normal Skin: Wound (RLE) Musculoskeletal: Normal Mood Description: Calm Speech Pattern: Clear and Appropriate Laboratory and Diagnostics Result Diagrams: 02/19/20 05:23 02/19/20 05:23 Labs: 02/17/20 17:20 Leg - Right Gram Stain - Final 02/17/20 17:20 Leg - Right Wound Culture - Preliminary 02/17/20 16:16 Blood Blood Culture - Preliminary 02/17/20 14:44 Blood Blood Culture - Preliminary Laboratory WBC 19.7 X10^3/uL (3.6-10.0) H 02/19/20 05:23 RBC 3.91 X10^6/uL (3.5-5.4) 02/19/20 05:23 Hgb 11.5 g/dL (12.0-16.0) L 02/19/20 05:23 Hct 34.9 % (36.0-47.0) L 02/19/20 05:23 MCV 89.2 fL (80.0-100.0) 02/19/20 05:23 MCH 29.4 pg (27.0-34.0) 02/19/20 05:23 MCHC 32.9 g/dL (33.0-35.0) L 02/19/20 05:23 RDW 15.7 % (11.6-16.5) 02/19/20 05:23 Plt Count 827 X10^3/uL (150.0-450.0) H 02/19/20 05:23 Plt Count Comment Increased (ADEQUATE) A 02/19/20 05:23 MPV 7.6 fL (7.4-11.0) 02/19/20 05:23 Neut % (Auto) 74.0 % (42.0-75.0) 02/19/20 05:23 Lymph % (Auto) 15.2 % (21.0-51.0) L 02/19/20 05:23 [place] % (Auto) 4.0 % (0.0-13.0) 02/19/20 05:23 Eos % (Auto) 2.9 % (0.9-2.9) 02/19/20 05:23 Baso % (Auto) 3.9 % (0.2-1.0) H 02/19/20 05:23 Neut # (Auto) 14.6 x10^3/uL (2.2-4.8) H 02/19/20 05:23 Lymph # (Auto) 3.0 X10^3/uL (1.3-2.9) H 02/19/20 05:23 [place] # (Auto) 0.8 x10^3/uL (0.3-0.8) 02/19/20 05:23 Eos # (Auto) 0.6 x10^3/uL (0.0-0.2) H 02/19/20 05:23 Baso # (Auto) 0.8 X10^3/uL (0.0-0.1) H 02/19/20 05:23 Absolute Nucleated RBC 0.1 /100WBC 02/19/20 05:23 Total Counted 100 02/19/20 05:23 Neutrophils % (Manual) 66 % (39-76) 02/19/20 05:23 Band Neutrophils % 3 % (0-10) 02/19/20 05:23 Lymphocytes % (Manual) 20 % (13-43) 02/19/20 05:23 Monocytes % (Manual) 5 % (4-9) 02/19/20 05:23 Eosinophils % (Manual) 2 % (0-6) 02/19/20 05:23 Basophils % (Manual) 2 % (0-1) H 02/19/20 05:23 Metamyelocytes % 2 02/19/20 05:23 Plt Morphology Comment Normal (NORMAL) 02/19/20 05:23 RBC Morphology Normal (NORMAL) 02/19/20 05:23 ESR 14 MM/HOUR (0-20) 02/17/20 16:16 Sodium 138 mmol/L (136-145) 02/19/20 05:23 Corrected Sodium TNP 02/19/20 05:23 Potassium 4.0 mmol/L (3.5-5.1) 02/19/20 05:23 Chloride 103 mmol/L (98-107) 02/19/20 05:23 Carbon Dioxide 30.2 mmol/L (21-32) 02/19/20 05:23 BUN 12 mg/dL (7-18) 02/19/20 05:23 Creatinine 0.80 mg/dL (0.55-1.02) 02/19/20 05:23 Est GFR (MDRD) Af Amer > 60 (>60) 02/19/20 05:23 Est GFR (MDRD) Non-Af > 60 (>60) 02/19/20 05:23 Glucose 89 mg/dL (65-99) 02/19/20 05:23 Calcium 8.8 mg/dL (8.5-10.1) 02/19/20 05:23 Corrected Calcium 9.6 mg/dL (8.5-10.1) 02/19/20 05:23 Total Bilirubin 0.30 mg/dL (0.2-1.0) 02/19/20 05:23 AST 16 Units/L (15-37) 02/19/20 05:23 ALT 14 Units/L (12-78) 02/19/20 05:23 Alkaline Phosphatase 210 Units/L (46-116) H 02/19/20 05:23 C-Reactive Protein 1.10 mg/L (0-3.0) 02/17/20 16:16 Total Protein 6.2 g/dL (6.4-8.2) L 02/19/20 05:23 Albumin 3.0 g/dL (3.4-5.0) L 02/19/20 05:23 Globulin 3.2 g/dL (2.5-4.5) 02/19/20 05:23 Albumin/Globulin Ratio 0.9 Ratio (1.1-2.1) L 02/19/20 05:23 Amylase 22 Units/L (25-115) L 02/19/20 05:23 Lipase 68 Units/L (73-393) L 02/19/20 05:23 Specimen Type Clean catch urine 02/18/20 01:30 Urine Color Yellow (YELLOW) 02/18/20 01:30 Urine Appearance Hazy (CLEAR) 02/18/20 01:30 Urine pH 8.0 (5.0 - 8.0) 02/18/20 01:30 Ur Specific [place] 1.010 (1.000-1.030) 02/18/20 01:30 Urine Protein Negative (NEGATIVE) 02/18/20 01:30 Urine Glucose (UA) Negative (NEGATIVE) 02/18/20 01:30 Urine Ketones Negative (NEGATIVE) 02/18/20 01:30 Urine Occult Blood Negative (NEGATIVE) 02/18/20 01:30 Urine Nitrite Negative (NEGATIVE) 02/18/20 01:30 Urine Bilirubin Negative (NEGATIVE) 02/18/20 01:30 Urine Urobilinogen Normal (NORMAL) 02/18/20 01:30 Ur Leukocyte Esterase Negative (NEGATIVE) 02/18/20 01:30 Plan (1) Cellulitis: Status: Acute Plan: Continue antibiotics Mupirocin and ketoconazole cream for wound (2) Diarrhea: Status: Acute Plan: IVF, Stool studies/culture Abnormal CTAB>consulted surgery (3) Thrombocytosis: Status: Acute (4) Leukocytosis: Status: Acute Qualifiers: Leukocytosis type: unspecified Qualified Code(s): D72.829 - Elevated white blood cell count, unspecified (5) Dementia: Status: Chronic (6) Essential hypertension: Status: Chronic
[2020-02-19] MEDS: PEPCID 20 MG IV PREMIX* 20 MG/50 ML BAG IV SCH ×2 (09:46→20:54)
[2020-02-19] MEDS: PROTONIX INJ 40 MG VIAL IVP SCH ×2 (09:47→20:54)
[2020-02-19] MEDS: NORVASC TAB 10 MG PO SCH (09:47)
[2020-02-19] MEDS: LASIX PO SCH (09:47)
[2020-02-19] MEDS: COZAAR PO SCH (09:47)
[2020-02-19] MEDS: LIPITOR TAB 10 MG PO SCH (09:48)
[2020-02-19] MEDS: NORCO 5/325 MG TAB PO PRN ×2 (09:48→21:01)
[2020-02-19] MEDS: SYNTHROID 50 mcg TAB PO SCH (09:48)
[2020-02-19] MEDS: BACTROBAN CREAM TOP SCH (09:49)
[2020-02-19] MEDS: NIZORAL CREAM TOP SCH ×2 (14:24→20:53)
[2020-02-19] MEDS ORDERED: DULCOLAX SUPPOSITORY 10 MG RECTAL ONE (14:41)
[2020-02-19] MEDS ORDERED: DULCOLAX SUPPOSITORY 10 MG ONE (15:02)
--- NOTE | 2020-02-19 15:26 | RAD ---
HISTORYnauseaSTUDYCHEST, 1 VIEWCOMPARISONMarch 2019FINDINGSThe patient is rotated. The cardiac silhouette is unremarkable . The lungs are relatively clear without focal infiltrate or effusion. The the aorta is partially calcified and tortuous.IMPRESSIONNo acute cardiopulmonary disease.Electronically signed by: FE MASTERSON (February 19, 2020 15:25:14)
[2020-02-19] MEDS ORDERED: NS 500 ML IV 500 ML IV ONE (16:19)
[2020-02-19 17:42] LABS: CRYPTOSPORIDIUM PARVUM ANTIGEN NEGATIVE (NEGATIVE); GIARDIA LAMBLIA ANTIGEN NEGATIVE (NEGATIVE)
[2020-02-19] MEDS: COLACE CAP 100 MG PO PRN (20:54)
[2020-02-19] MEDS: ZANAFLEX PO SCH (20:54)
[2020-02-19] MEDS: KLONOPIN TAB 0.5 MG PO PRN (20:54)
[2020-02-20] MEDS: ZOSYN VIAL 3.375 GRAMS 3.375 G in NS 100 ML IV + SPIKE MINIBAG* 100 ML IV SCH ×3 (05:09→21:43)
[2020-02-20] MEDS: NS 1000 ML 1,000 ML IV SCH ×3 (05:10→20:51)
[2020-02-20 06:32] LABS: BASOPHILS # (AUTO) 0.7 X10^3/uL (0.0-0.1); BASOPHILS % (AUTO) 4.4 % (0.2-1.0); EOSINOPHILS # (AUTO) 0.6 x10^3/uL (0.0-0.2); EOSINOPHILS % (AUTO) 3.4 % (0.9-2.9); HEMATOCRIT 34.5 % (36.0-47.0); HEMOGLOBIN 11.4 g/dL (12.0-16.0); LYMPHOCYTES # (AUTO) 2.7 X10^3/uL (1.3-2.9); LYMPHOCYTES % (AUTO) 16.4 % (21.0-51.0); MEAN CORPUSCULAR HEMOGLOBIN 29.4 pg (27.0-34.0); MEAN CORPUSCULAR HGB CONC 33.1 g/dL (33.0-35.0); MEAN CORPUSCULAR VOLUME 88.8 fL (80.0-100.0); MEAN PLATELET VOLUME 7.5 fL (7.4-11.0); MONOCYTES # (AUTO) 0.8 x10^3/uL (0.3-0.8); MONOCYTES % (AUTO) 4.8 % (0.0-13.0); NEUTROPHILS # (AUTO) 11.8 x10^3/uL (2.2-4.8); PLATELET COUNT 807 X10^3/uL (150.0-450.0); RED BLOOD COUNT 3.89 X10^6/uL (3.5-5.4); RED CELL DISTRIBUTION WIDTH 15.7 % (11.6-16.5); WHITE BLOOD COUNT 16.7 X10^3/uL (3.6-10.0)
[2020-02-20 06:47] LABS: ALANINE AMINOTRANSFERASE 13 Units/L (12-78); ALKALINE PHOSPHATASE 203 Units/L (46-116); ASPARTATE AMINO TRANSFERASE 17 Units/L (15-37); BLOOD UREA NITROGEN 10 mg/dL (7-18); CALCIUM 8.8 mg/dL (8.5-10.1); CARBON DIOXIDE 28.6 mmol/L (21-32); CHLORIDE 103 mmol/L (98-107); COR CA(FOR HYPOALB) 9.6 mg/dL (8.5-10.1); CREATININE 0.68 mg/dL (0.55-1.02); SODIUM 141 mmol/L (136-145); TOTAL PROTEIN 6.2 g/dL (6.4-8.2); eGFR NON BLACK RACES > 60 (>60)
[2020-02-20 06:51] LABS: PLATELET MORPHOLOGY COMMENT NORMAL (NORMAL)
[2020-02-20 07:20] LABS: BAND NEUTROPHILS % 5 % (0-10)
[2020-02-20] MEDS: PROTONIX INJ 40 MG VIAL IVP SCH ×2 (09:02→20:51)
[2020-02-20] MEDS: NORVASC TAB 10 MG PO SCH (09:02)
[2020-02-20] MEDS: SYNTHROID 50 mcg TAB PO SCH (09:02)
[2020-02-20] MEDS: PEPCID 20 MG IV PREMIX* 20 MG/50 ML BAG IV SCH ×2 (09:02→20:51)
[2020-02-20] MEDS: LASIX PO SCH (09:03)
[2020-02-20] MEDS: LIPITOR TAB 10 MG PO SCH (09:03)
[2020-02-20] MEDS: COZAAR PO SCH (09:03)
[2020-02-20] MEDS ORDERED: XYLOCAINE 2 % (PLAIN) ONE (10:23)
[2020-02-20] MEDS ORDERED: DIPRIVAN VIAL 20 ML ONE (10:23)
--- NOTE | 2020-02-20 10:52 | DR.UPDATE ---
H&P Update History and Physical Update: History and Physical reviewed and patient examined. Changes noted: Yes with the following: PRESENTED TO THE OFFICE WITH REPORTS OF PERSISTENT DIARRHEA, NAUSEA, AND VOMITING. PATIENTS DAUGHTER REPORTED THAT SHE STARTED RUNING A FEVER LAST NIGHT. PATIENT REPORTS TAKING ZOFRAN AT HOME FOR THE NAUSEA, BUT SYMPTOMS PERSISTED. SHE WAS STARTED ON BACTRIM DS THREE DAYS PRIOR DUE TO CELLULITIS OF THE RIGHT LEG. PATIENT REPORTED FALLING AND HITTING LEG ABOUT FIVE DAYS AGO. THERE IS AN OPEN WOUND THAT IS APPROXIMATELY 1CM TO THE RIGHT LOWER LEG. THERE IS ERYTHEMA AND EDEMA TO RIGHT LOWER LEG WELL. SHE HAS SCATTERED BRUISING AND SEVERAL SCABBED OVER AREAS TO BILATERAL LEGS. WE ADMITTED PATIENT TO THE HOSPITAL FOR INTRACTABLE NAUSEA, VOMITING, DIARRHEA, AND RIGHT LEG CELLULITIS. ON ADMISSION, VITALS WERE 98.8-98-20-91%RA-151/62. LABS WERE OBTAINED. ABNORMAL LAB VALUES INCLUDE THE FOLLOWING: WBC 31.3, PLT COUNT 954, BUN 20, ALK PHOS 268. URINALYSIS ORDERED, BUT PATIENT HAS NOT COLLECTED AT THIS TIME. BLOOD AND WOUND CULTURES WERE SET UP. AN ABDOMEN/PELVIS CT WAS OBTAINED AND REVEALED: 1. Marked mucosal thickening along the inner lining of the greater curvature of the stomach is seen measuring up to 30 mm in thickness as detailed above. Overall this finding is worrisome for underlying malignancy. Follow-up with GI consultation and consideration for upper endoscopy may be obtained if this is felt to be clinically indicated and not contraindicated. 2. Stable infrarenal abdominal aortic aneurysm is seen with severe calcification and atheromatous plaque burden along the aorta bi common iliac vasculature. 3. 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 There is no evidence of bowel obstruction 4. The previously described soft tissue like thickening in the sigmoid colon in association with the diverticula is less apparent on the current examination and may have been attributed to fecal material or peristaltic activity on the prior examination. SHE WAS STARTED ON NORMAL SALINE AT 80 ML/HR, ZOSYN 3.375G IV TID, PROTONIX 40MG IV BID, ZOFRAN 4MG IV Q4H PRN, PEPCID 20MG IV Q12H, AND TYLENOL 650MG PO Q6H PRN. WE WILL REVIEW HER HOME MEDICATIONS. WE WILL CONSULT , GENERAL SURGEON DUE TO FINDINGS OF CT REPORT. OTHERWISE, WE PLAN TO FOLLOW UP WITH AM LABS AND CONTINUE TO MONITOR. Prescription drug monitoring program results: PDMP was not reviewed H&P Reviewed: Yes Patient was examined?: Yes
--- NOTE | 2020-02-20 11:28 | PCM.PROG ---
Progress Note - Progress Note for Day of Date of Exam: 02/20/20 - Subjective Subjective: IS BEING TREATED FOR INTRACTABLE NAUSEA, VOMITING, DIARRHEA, AND RLE CELLULITIS. CTAP REVEALED THICKENING ALONG THE INNER LINING OF THE GREATER CURVATURE OF THE STOMACH, SUGGESTING MALIGNANCY. WAS CONSULTED OVER THE WEEKEND AND PLANS FOR AN EGD TODAY. ON EXAMINATION, HEART IS REGULAR IN RATE AND RHYTHM. BILATERAL LUNGS ARE NOTED WITH DIMINISHED LUNG SOUNDS THROUGHOUT. ABDOMEN IS ROUND, SOFT, AND NOTED WITH DIFFUSE TENDERNESS. RLE CONTINUES WITH ERYTHEMA AND EDEMA. WOUND IS COVERED WITH A DRESSING. DRESSING IS DRY AND INTACT. HER VITALS THIS MORNING ARE: 98.1-70-18-94%-158/66. LABS WERE OBTAINED. ABNORMAL LAB VALUES INCLUDE THE FOLLOWING: WBC 16.7, HGB 11.4, HCT 34.5, PLT COUNT 807, ALK PHOS 203, TOTAL PROTEIN 6.2, ALBUMIN 3.0. STOOL STUDIES ARE NEGATIVE. RIGHT LEG CULTURE REVEALS GROWTH OF COAGULASE NEGATIVE STAPH WITH YEAST AT DAY 2. BLOOD CULTURES AND STOOL CULTURE PENDING. SHE IS CURRENTLY RECEIVING NORMAL SALINE AT 80 ML/HR, ZOSYN 3.375G IV TID, PROTONIX 40MG IV BID, ZOFRAN 4MG IV Q4H PRN, PEPCID 20MG IV Q12H, KETOCONAZOLE CREAM TO WOUND BID, TYLENOL 650MG PO Q6H PRN, AND HER HOME MEDICATIOSN WERE RESUMED. WE WILL CONTINUE WITH CURRENT PLAN OF CARE TODAY. OTHERWISE, WE PLAN TO FOLLOW UP WITH AM LABS AND CONTINUE TO MONITOR. - Past Medical Family Social History Past Med/Fam/Surg Hx: No changes since H&P Allergies: Allergies ciprofloxacin [From Cipro] Allergy (Verified 05/25/17 18:00) codeine Allergy (Verified 05/25/17 18:00) metronidazole [From Flagyl] Allergy (Verified 12/12/19 09:12) - Review of Systems ROS: No change since H&P - Vital Signs and I&O's Vital Signs: Temperature 98.1 F Pulse Rate [Left Brachial] 70 Pulse Rate 89 Respiratory Rate 20 Blood Pressure [Right Arm] 158/66 Blood Pressure [Left Arm] 156/71 Blood Pressure 142/79 O2 Sat by Pulse Oximetry 98 Intake and Output: Intake & Output 02/17/20 02/18/20 02/19/2020 11:59 11:59 11:59 11:59 Intake Total 1810 / 1810 3100 / 3100 2340 / 2340 Output Total 600 / 600 2400 / 2400 2400 / 2400 Balance 1210 / 1210 700 / 700 -60 / -60 - Physical Exam Oriented: Normal Eyes: Normal Ear: Normal Nose: Normal Respiratory: Normal Cardiovascular: Systolic, Murmur : Normal Auscultation: Bowel Sounds: Normal Palpation: Normal Tenderness: Normal Skin: Wound (RLE) Musculoskeletal: Normal Mood Description: Calm Speech Pattern: Clear, Appropriate - Laboratory and Diagnostics Result Diagrams: 02/20/20 05:58 02/20/20 05:58 Labs: 02/19/20 16:00 Stool Stool Culture - Preliminary 02/19/20 16:00 Stool - Final 02/17/20 17:20 Leg - Right Gram Stain - Final 02/17/20 17:20 Leg - Right Wound Culture - Preliminary 02/17/20 16:16 Blood Blood Culture - Preliminary 02/17/20 14:44 Blood Blood Culture - Preliminary Laboratory WBC 16.7 X10^3/uL (3.6-10.0) H 02/20/20 05:58 RBC 3.89 X10^6/uL (3.5-5.4) 02/20/20 05:58 Hgb 11.4 g/dL (12.0-16.0) L 02/20/20 05:58 Hct 34.5 % (36.0-47.0) L 02/20/20 05:58 MCV 88.8 fL (80.0-100.0) 02/20/20 05:58 MCH 29.4 pg (27.0-34.0) 02/20/20 05:58 MCHC 33.1 g/dL (33.0-35.0) 02/20/20 05:58 RDW 15.7 % (11.6-16.5) 02/20/20 05:58 Plt Count 807 X10^3/uL (150.0-450.0) H 02/20/20 05:58 Plt Count Comment Increased (ADEQUATE) A 02/20/20 05:58 MPV 7.5 fL (7.4-11.0) 02/20/20 05:58 Neut % (Auto) 71.0 % (42.0-75.0) 02/20/20 05:58 Lymph % (Auto) 16.4 % (21.0-51.0) L 02/20/20 05:58 [place] % (Auto) 4.8 % (0.0-13.0) 02/20/20 05:58 Eos % (Auto) 3.4 % (0.9-2.9) H 02/20/20 05:58 Baso % (Auto) 4.4 % (0.2-1.0) H 02/20/20 05:58 Neut # (Auto) 11.8 x10^3/uL (2.2-4.8) H 02/20/20 05:58 Lymph # (Auto) 2.7 X10^3/uL (1.3-2.9) 02/20/20 05:58 [place] # (Auto) 0.8 x10^3/uL (0.3-0.8) 02/20/20 05:58 Eos # (Auto) 0.6 x10^3/uL (0.0-0.2) H 02/20/20 05:58 Baso # (Auto) 0.7 X10^3/uL (0.0-0.1) H 02/20/20 05:58 Absolute Nucleated RBC 0.1 /100WBC 02/20/20 05:58 Total Counted 100 02/20/20 05:58 Neutrophils % (Manual) 64 % (39-76) 02/20/20 05:58 Band Neutrophils % 5 % (0-10) 02/20/20 05:58 Lymphocytes % (Manual) 23 % (13-43) 02/20/20 05:58 Monocytes % (Manual) 4 % (4-9) 02/20/20 05:58 Eosinophils % (Manual) 4 % (0-6) 02/20/20 05:58 Basophils % (Manual) 2 % (0-1) H 02/19/20 05:23 Metamyelocytes % 2 02/19/20 05:23 Plt Morphology Comment Normal (NORMAL) 02/20/20 05:58 RBC Morphology Normal (NORMAL) 02/20/20 05:58 ESR 14 MM/HOUR (0-20) 02/17/20 16:16 PT 14.1 SECONDS (11.8-14.3) 02/20/20 05:58 INR Target Range - 02/20/20 05:58 INR 1.12 (0.8-1.3) 02/20/20 05:58 Sodium 141 mmol/L (136-145) 02/20/20 05:58 Corrected Sodium TNP 02/20/20 05:58 Potassium 3.8 mmol/L (3.5-5.1) 02/20/20 05:58 Chloride 103 mmol/L (98-107) 02/20/20 05:58 Carbon Dioxide 28.6 mmol/L (21-32) 02/20/20 05:58 BUN 10 mg/dL (7-18) 02/20/20 05:58 Creatinine 0.68 mg/dL (0.55-1.02) 02/20/20 05:58 Est GFR (MDRD) Af Amer > 60 (>60) 02/20/20 05:58 Est GFR (MDRD) Non-Af > 60 (>60) 02/20/20 05:58 Glucose 84 mg/dL (65-99) 02/20/20 05:58 Calcium 8.8 mg/dL (8.5-10.1) 02/20/20 05:58 Corrected Calcium 9.6 mg/dL (8.5-10.1) 02/20/20 05:58 Total Bilirubin 0.20 mg/dL (0.2-1.0) 02/20/20 05:58 AST 17 Units/L (15-37) 02/20/20 05:58 ALT 13 Units/L (12-78) 02/20/20 05:58 Alkaline Phosphatase 203 Units/L (46-116) H 02/20/20 05:58 C-Reactive Protein 1.10 mg/L (0-3.0) 02/17/20 16:16 Total Protein 6.2 g/dL (6.4-8.2) L 02/20/20 05:58 Albumin 3.0 g/dL (3.4-5.0) L 02/20/20 05:58 Globulin 3.2 g/dL (2.5-4.5) 02/20/20 05:58 Albumin/Globulin Ratio 0.9 Ratio (1.1-2.1) L 02/20/20 05:58 Amylase 22 Units/L (25-115) L 02/19/20 05:23 Lipase 68 Units/L (73-393) L 02/19/20 05:23 Specimen Type Clean catch urine 02/18/20 01:30 Urine Color Yellow (YELLOW) 02/18/20 01:30 Urine Appearance Hazy (CLEAR) 02/18/20 01:30 Urine pH 8.0 (5.0 - 8.0) 02/18/20 01:30 Ur Specific [place] 1.010 (1.000-1.030) 02/18/20 01:30 Urine Protein Negative (NEGATIVE) 02/18/20 01:30 Urine Glucose (UA) Negative (NEGATIVE) 02/18/20 01:30 Urine Ketones Negative (NEGATIVE) 02/18/20 01:30 Urine Occult Blood Negative (NEGATIVE) 02/18/20 01:30 Urine Nitrite Negative (NEGATIVE) 02/18/20 01:30 Urine Bilirubin Negative (NEGATIVE) 02/18/20 01:30 Urine Urobilinogen Normal (NORMAL) 02/18/20 01:30 Ur Leukocyte Esterase Negative (NEGATIVE) 02/18/20 01:30 Stool Description 100g,brown,formed 02/19/20 16:00 Stool Description 100g,brown,formed 02/19/20 16:00 Stl Occult Blood (IFOB) Negative (NEGATIVE) 02/19/20 16:00 Stool for White Cells Negative (NEGATIVE) 02/19/20 16:00 Stl C. diff Tox B Gene Negative (NEGATIVE) 02/19/20 16:00 Stl C. diff 027-NAP1-BI Negative (NEGATIVE) 02/19/20 16:00 Stool H. pylori Ag Negative (NEGATIVE) 02/19/20 16:00 Cryptosporid parvum Ag Negative (NEGATIVE) 02/19/20 16:00 Giardia lamblia Ag Negative (NEGATIVE) 02/19/20 16:00 SARS-CoV-2 (PCR) Negative (NEGATIVE) 02/19/20 15:26 - Plan (1) Cellulitis Status: Acute Qualifiers: Site of cellulitis: extremity Site of cellulitis of extremity: lower extremity Laterality: right Qualified Code(s): L03.115 - Cellulitis of right lower limb Plan: Continue antibiotics. Mupirocin and ketoconazole cream for wound (2) Yeast infection of the skin Status: Acute (3) Abdominal pain Status: Acute Qualifiers: Abdominal location: generalized Qualified Code(s): R10.84 - Generalized abdominal pain Plan: EGD TODAY (4) Nausea and vomiting Status: Acute Qualifiers: Vomiting type: unspecified Vomiting Intractability: intractable Qualified Code(s): R11.2 - Nausea with vomiting, unspecified (5) Diarrhea Status: Acute Qualifiers: Diarrhea type: presumed infectious Qualified Code(s): R19.7 - Diarrhea, unspecified Plan: IVF, Stool studies/culture. Abnormal CTAB>consulted surgery
[2020-02-20] MEDS: NIZORAL CREAM TOP SCH ×2 (11:52→21:42)
[2020-02-20] MEDS: BACTROBAN CREAM TOP SCH (11:52)
[2020-02-20] MEDS: KLONOPIN TAB 0.5 MG PO PRN (20:52)
[2020-02-20] MEDS: ZANAFLEX PO SCH (20:52)
[2020-02-21 05:18] LABS: BASOPHILS # (AUTO) 0.8 X10^3/uL (0.0-0.1); BASOPHILS % (AUTO) 4.9 % (0.2-1.0); EOSINOPHILS # (AUTO) 0.6 x10^3/uL (0.0-0.2); EOSINOPHILS % (AUTO) 3.8 % (0.9-2.9); HEMATOCRIT 33.8 % (36.0-47.0); HEMOGLOBIN 11.2 g/dL (12.0-16.0); LYMPHOCYTES # (AUTO) 2.8 X10^3/uL (1.3-2.9); LYMPHOCYTES % (AUTO) 18.3 % (21.0-51.0); MEAN CORPUSCULAR HEMOGLOBIN 29.6 pg (27.0-34.0); MEAN CORPUSCULAR HGB CONC 33.1 g/dL (33.0-35.0); MEAN CORPUSCULAR VOLUME 89.5 fL (80.0-100.0); MEAN PLATELET VOLUME 8.1 fL (7.4-11.0); MONOCYTES # (AUTO) 0.9 x10^3/uL (0.3-0.8); MONOCYTES % (AUTO) 5.6 % (0.0-13.0); NEUTROPHILS # (AUTO) 10.4 x10^3/uL (2.2-4.8); NEUTROPHILS % (AUTO) 67.4 % (42.0-75.0); PLATELET COUNT 880 X10^3/uL (150.0-450.0); RED BLOOD COUNT 3.78 X10^6/uL (3.5-5.4); RED CELL DISTRIBUTION WIDTH 15.9 % (11.6-16.5); WHITE BLOOD COUNT 15.5 X10^3/uL (3.6-10.0)
[2020-02-21] MEDS: ZOSYN VIAL 3.375 GRAMS 3.375 G in NS 100 ML IV + SPIKE MINIBAG* 100 ML IV SCH ×3 (05:30→22:00)
[2020-02-21 05:31] LABS: ALANINE AMINOTRANSFERASE 14 Units/L (12-78); ALBUMIN 2.9 g/dL (3.4-5.0); ALKALINE PHOSPHATASE 188 Units/L (46-116); ASPARTATE AMINO TRANSFERASE 15 Units/L (15-37); BLOOD UREA NITROGEN 12 mg/dL (7-18); CALCIUM 8.8 mg/dL (8.5-10.1); CARBON DIOXIDE 29.3 mmol/L (21-32); CHLORIDE 105 mmol/L (98-107); COR CA(FOR HYPOALB) 9.7 mg/dL (8.5-10.1); CREATININE 0.85 mg/dL (0.55-1.02); SODIUM 140 mmol/L (136-145); TOTAL PROTEIN 6.1 g/dL (6.4-8.2); eGFR NON BLACK RACES > 60 (>60)
[2020-02-21 06:13] LABS: BAND NEUTROPHILS % 3 % (0-10); BASOPHILS % (MANUAL) 1 % (0-1)
[2020-02-21 06:14] LABS: PLATELET MORPHOLOGY COMMENT NORMAL (NORMAL)
[2020-02-21] MEDS: SYNTHROID 50 mcg TAB PO SCH (08:37)
[2020-02-21] MEDS: PROTONIX INJ 40 MG VIAL IVP SCH ×2 (08:37→21:43)
[2020-02-21] MEDS: LIPITOR TAB 10 MG PO SCH (08:37)
[2020-02-21] MEDS: COZAAR PO SCH (08:37)
[2020-02-21] MEDS: NORVASC TAB 10 MG PO SCH (08:37)
[2020-02-21] MEDS: PEPCID 20 MG IV PREMIX* 20 MG/50 ML BAG IV SCH ×2 (08:37→21:42)
[2020-02-21] MEDS: LASIX PO SCH (08:37)
[2020-02-21] MEDS ORDERED: MILK OF MAGNESIA PO PRN (10:00)
[2020-02-21] MEDS ORDERED: MIRALAX POWDER (1 DOSE 17 G) PO SCH (10:00)
[2020-02-21] MEDS ORDERED: COLACE CAP 100 MG PO PRN (10:00)
[2020-02-21] MEDS: NIZORAL CREAM TOP SCH ×2 (10:41→21:42)
[2020-02-21] MEDS: BACTROBAN CREAM TOP SCH (10:41)
--- NOTE | 2020-02-21 15:26 | PCM.PROG ---
Progress Note - Progress Note for Day of Date of Exam: 02/21/20 - Subjective Subjective: IS BEING TREATED FOR INTRACTABLE NAUSEA, VOMITING, DIARRHEA, AND RLE CELLULITIS. CTAP REVEALED THICKENING ALONG THE INNER LINING OF THE GREATER CURVATURE OF THE STOMACH, SUGGESTING MALIGNANCY. PERFORMED AN EGD YESTERDAY. FINDINGS INCLUDED: Chronic gastritis with some thickening of the gastric folds, mainly in the antrum. No evidence of neoplasm, ulcers, bleeding, or obstruction. There was a small hiatal hernia without significant esophagitis. SHE CONTINUES WITH MILD ABDOMINAL PAIN AND WEAKNESS TODAY. ON EXAMINATION, HEART IS REGULAR IN RATE AND RHYTHM. BILATERAL LUNGS ARE NOTED WITH DIMINISHED LUNG SOUNDS THROUGHOUT. ABDOMEN IS ROUND, SOFT, AND NOTED WITH DIFFUSE TENDERNESS. RLE CONTINUES WITH ERYTHEMA AND EDEMA. WOUND IS COVERED WITH A DRESSING. DRESSING IS DRY AND INTACT. HER VITALS THIS MORNING ARE: 97.9-85-18-95%-136/63. LABS WERE OBTAINED. ABNORMAL LAB VALUES INCLUDE THE FOLLOWING: WBC 15.5, HGB 11.2, HCT 33.8, PLT COUNT 880, GLUCOSE 106, ALK PHOS 188, TOTAL PROTEIN 6.1, ALBUMIN 2.9. STOOL STUDIES ARE NEGATIVE. RIGHT LEG CULTURE REVEALS GROWTH OF COAGULASE NEGATIVE STAPH WITH YEAST AT DAY 3. BLOOD CULTURES AND STOOL CULTURE PENDING. SHE IS CURRENTLY RECEIVING NORMAL SALINE AT 80 ML/HR, ZOSYN 3.375G IV TID, PROTONIX 40MG IV BID, ZOFRAN 4MG IV Q4H PRN, PEPCID 20MG IV Q12H, KETOCONAZOLE CREAM TO WOUND BID, TYLENOL 650MG PO Q6H PRN, AND HER HOME MEDICATIOSN WERE RESUMED. WE WILL CONTINUE WITH CURRENT PLAN OF CARE TODAY. OTHERWISE, WE PLAN TO FOLLOW UP WITH AM LABS AND CONTINUE TO MONITOR. - Past Medical Family Social History Past Med/Fam/Surg Hx: No changes since H&P Allergies: Allergies ciprofloxacin [From Cipro] Allergy (Verified 05/25/17 18:00) codeine Allergy (Verified 05/25/17 18:00) metronidazole [From Flagyl] Allergy (Verified 12/12/19 09:12) - Review of Systems ROS: No change since H&P - Vital Signs and I&O's Vital Signs: Temperature 98.1 F Pulse Rate [Left Brachial] 100 Pulse Rate 89 Respiratory Rate 20 Blood Pressure [Right Arm] 109/69 Blood Pressure [Left Arm] 156/71 Blood Pressure 142/79 O2 Sat by Pulse Oximetry 96 Intake and Output: Intake & Output 02/19/20 02/20/20 02/21/20 02/22/20 11:59 11:59 11:59 11:59 Intake Total 3100 / 3100 2340 / 2340 2069 Output Total 2400 / 2400 2400 / 2400 Balance 700 / 700 -60 / -60 2069 - Physical Exam Oriented: Normal Eyes: Normal Ear: Normal Nose: Normal Respiratory: Normal Cardiovascular: Systolic, Murmur : Normal Auscultation: Bowel Sounds: Normal Palpation: Normal Tenderness: Normal Skin: Wound (RLE) Musculoskeletal: Normal Mood Description: Calm Speech Pattern: Clear, Appropriate - Laboratory and Diagnostics Result Diagrams: 02/21/20 04:26 02/21/20 04:26 Labs: 02/17/20 17:20 Leg - Right Gram Stain - Final 02/17/20 17:20 Leg - Right Wound Culture - Final 02/19/20 16:00 Stool Stool Culture - Final 02/19/20 16:00 Stool - Final 02/17/20 16:16 Blood Blood Culture - Preliminary 02/17/20 14:44 Blood Blood Culture - Preliminary Laboratory WBC 15.5 X10^3/uL (3.6-10.0) H 02/21/20 04:26 RBC 3.78 X10^6/uL (3.5-5.4) 02/21/20 04:26 Hgb 11.2 g/dL (12.0-16.0) L 02/21/20 04:26 Hct 33.8 % (36.0-47.0) L 02/21/20 04:26 MCV 89.5 fL (80.0-100.0) 02/21/20 04:26 MCH 29.6 pg (27.0-34.0) 02/21/20 04:26 MCHC 33.1 g/dL (33.0-35.0) 02/21/20 04:26 RDW 15.9 % (11.6-16.5) 02/21/20 04:26 Plt Count 880 X10^3/uL (150.0-450.0) H 02/21/20 04:26 Plt Count Comment Increased (ADEQUATE) A 02/21/20 04:26 MPV 8.1 fL (7.4-11.0) 02/21/20 04:26 Neut % (Auto) 67.4 % (42.0-75.0) 02/21/20 04:26 Lymph % (Auto) 18.3 % (21.0-51.0) L 02/21/20 04:26 [place] % (Auto) 5.6 % (0.0-13.0) 02/21/20 04:26 Eos % (Auto) 3.8 % (0.9-2.9) H 02/21/20 04:26 Baso % (Auto) 4.9 % (0.2-1.0) H 02/21/20 04:26 Neut # (Auto) 10.4 x10^3/uL (2.2-4.8) H 02/21/20 04:26 Lymph # (Auto) 2.8 X10^3/uL (1.3-2.9) 02/21/20 04:26 [place] # (Auto) 0.9 x10^3/uL (0.3-0.8) H 02/21/20 04:26 Eos # (Auto) 0.6 x10^3/uL (0.0-0.2) H 02/21/20 04:26 Baso # (Auto) 0.8 X10^3/uL (0.0-0.1) H 02/21/20 04:26 Absolute Nucleated RBC 0.1 /100WBC 02/21/20 04:26 Total Counted 100 02/21/20 04:26 Neutrophils % (Manual) 53 % (39-76) 02/21/20 04:26 Band Neutrophils % 3 % (0-10) 02/21/20 04:26 Lymphocytes % (Manual) 33 % (13-43) 02/21/20 04:26 Monocytes % (Manual) 5 % (4-9) 02/21/20 04:26 Eosinophils % (Manual) 5 % (0-6) 02/21/20 04:26 Basophils % (Manual) 1 % (0-1) 02/21/20 04:26 Metamyelocytes % 2 02/19/20 05:23 Plt Morphology Comment Normal (NORMAL) 02/21/20 04:26 RBC Morphology Normal (NORMAL) 02/21/20 04:26 ESR 14 MM/HOUR (0-20) 02/17/20 16:16 PT 14.1 SECONDS (11.8-14.3) 02/20/20 05:58 INR Target Range - 02/20/20 05:58 INR 1.12 (0.8-1.3) 02/20/20 05:58 Sodium 140 mmol/L (136-145) 02/21/20 04:26 Corrected Sodium TNP 02/21/20 04:26 Potassium 3.7 mmol/L (3.5-5.1) 02/21/20 04:26 Chloride 105 mmol/L (98-107) 02/21/20 04:26 Carbon Dioxide 29.3 mmol/L (21-32) 02/21/20 04:26 BUN 12 mg/dL (7-18) 02/21/20 04:26 Creatinine 0.85 mg/dL (0.55-1.02) 02/21/20 04:26 Est GFR (MDRD) Af Amer > 60 (>60) 02/21/20 04:26 Est GFR (MDRD) Non-Af > 60 (>60) 02/21/20 04:26 Glucose 106 mg/dL (65-99) H 02/21/20 04:26 Calcium 8.8 mg/dL (8.5-10.1) 02/21/20 04:26 Corrected Calcium 9.7 mg/dL (8.5-10.1) 02/21/20 04:26 Total Bilirubin 0.30 mg/dL (0.2-1.0) 02/21/20 04:26 AST 15 Units/L (15-37) 02/21/20 04:26 ALT 14 Units/L (12-78) 02/21/20 04:26 Alkaline Phosphatase 188 Units/L (46-116) H 02/21/20 04:26 C-Reactive Protein 1.10 mg/L (0-3.0) 02/17/20 16:16 Total Protein 6.1 g/dL (6.4-8.2) L 02/21/20 04:26 Albumin 2.9 g/dL (3.4-5.0) L 02/21/20 04:26 Globulin 3.2 g/dL (2.5-4.5) 02/21/20 04:26 Albumin/Globulin Ratio 0.9 Ratio (1.1-2.1) L 02/21/20 04:26 Amylase 22 Units/L (25-115) L 02/19/20 05:23 Lipase 68 Units/L (73-393) L 02/19/20 05:23 Specimen Type Clean catch urine 02/18/20 01:30 Urine Color Yellow (YELLOW) 02/18/20 01:30 Urine Appearance Hazy (CLEAR) 02/18/20 01:30 Urine pH 8.0 (5.0 - 8.0) 02/18/20 01:30 Ur Specific [place] 1.010 (1.000-1.030) 02/18/20 01:30 Urine Protein Negative (NEGATIVE) 02/18/20 01:30 Urine Glucose (UA) Negative (NEGATIVE) 02/18/20 01:30 Urine Ketones Negative (NEGATIVE) 02/18/20 01:30 Urine Occult Blood Negative (NEGATIVE) 02/18/20 01:30 Urine Nitrite Negative (NEGATIVE) 02/18/20 01:30 Urine Bilirubin Negative (NEGATIVE) 02/18/20 01:30 Urine Urobilinogen Normal (NORMAL) 02/18/20 01:30 Ur Leukocyte Esterase Negative (NEGATIVE) 02/18/20 01:30 Stool Description 100g,brown,formed 02/19/20 16:00 Stool Description 100g,brown,formed 02/19/20 16:00 Stl Occult Blood (IFOB) Negative (NEGATIVE) 02/19/20 16:00 Stool for White Cells Negative (NEGATIVE) 02/19/20 16:00 Stl C. diff Tox B Gene Negative (NEGATIVE) 02/19/20 16:00 Stl C. diff [id number]-BI Negative (NEGATIVE) 02/19/20 16:00 Stool H. pylori Ag Negative (NEGATIVE) 02/19/20 16:00 Cryptosporid parvum Ag Negative (NEGATIVE) 02/19/20 16:00 Giardia lamblia Ag Negative (NEGATIVE) 02/19/20 16:00 SARS-CoV-2 (PCR) Negative (NEGATIVE) 02/19/20 15:26 Tissue Pathology To follow 02/20/20 11:04 - Plan (1) Cellulitis Status: Acute Qualifiers: Site of cellulitis: extremity Site of cellulitis of extremity: lower extremity Laterality: right Qualified Code(s): L03.115 - Cellulitis of right lower limb Plan: Continue antibiotics. Mupirocin and ketoconazole cream for wound (2) Yeast infection of the skin Status: Acute (3) Abdominal pain Status: Acute Qualifiers: Abdominal location: generalized Qualified Code(s): R10.84 - Generalized abdominal pain Plan: EGD TODAY (4) Nausea and vomiting Status: Acute Qualifiers: Vomiting type: unspecified Vomiting Intractability: intractable Qualified Code(s): R11.2 - Nausea with vomiting, unspecified (5) Diarrhea Status: Acute Qualifiers: Diarrhea type: presumed infectious Qualified Code(s): R19.7 - Diarrhea, unspecified Plan: IVF, Stool studies/culture. Abnormal CTAB>consulted surgery
[2020-02-21] MEDS: NS 1000 ML 1,000 ML IV SCH ×2 (17:33→22:00)
[2020-02-21] MEDS: COLACE CAP 100 MG PO SCH (21:42)
[2020-02-21] MEDS: ZANAFLEX PO SCH (21:43)
[2020-02-21] MEDS: KLONOPIN TAB 0.5 MG PO PRN (21:44)
[2020-02-22] MEDS: NS 1000 ML 1,000 ML IV SCH ×2 (03:38→11:33)
[2020-02-22 05:12] LABS: BASOPHILS # (AUTO) 0.2 X10^3/uL (0.0-0.1); EOSINOPHILS # (AUTO) 0.7 x10^3/uL (0.0-0.2); EOSINOPHILS % (AUTO) 3.6 % (0.9-2.9); HEMATOCRIT 34.1 % (36.0-47.0); HEMOGLOBIN 11.3 g/dL (12.0-16.0); LYMPHOCYTES # (AUTO) 3.4 X10^3/uL (1.3-2.9); LYMPHOCYTES % (AUTO) 16.9 % (21.0-51.0); MEAN CORPUSCULAR HEMOGLOBIN 29.7 pg (27.0-34.0); MEAN CORPUSCULAR HGB CONC 33.1 g/dL (33.0-35.0); MEAN CORPUSCULAR VOLUME 89.7 fL (80.0-100.0); MEAN PLATELET VOLUME 7.8 fL (7.4-11.0); MONOCYTES % (AUTO) 5.1 % (0.0-13.0); NEUTROPHILS # (AUTO) 14.9 x10^3/uL (2.2-4.8); NEUTROPHILS % (AUTO) 73.4 % (42.0-75.0); PLATELET COUNT 998 X10^3/uL (150.0-450.0); RED CELL DISTRIBUTION WIDTH 15.9 % (11.6-16.5); WHITE BLOOD COUNT 20.3 X10^3/uL (3.6-10.0)
[2020-02-22 05:24] LABS: ALANINE AMINOTRANSFERASE 14 Units/L (12-78); ALKALINE PHOSPHATASE 190 Units/L (46-116); ASPARTATE AMINO TRANSFERASE 18 Units/L (15-37); BLOOD UREA NITROGEN 15 mg/dL (7-18); CARBON DIOXIDE 27.9 mmol/L (21-32); CHLORIDE 103 mmol/L (98-107); COR CA(FOR HYPOALB) 9.8 mg/dL (8.5-10.1); CREATININE 0.87 mg/dL (0.55-1.02); SODIUM 139 mmol/L (136-145); TOTAL PROTEIN 6.3 g/dL (6.4-8.2); eGFR NON BLACK RACES > 60 (>60)
[2020-02-22 05:52] LABS: BAND NEUTROPHILS % 4 % (0-10); BASOPHILS % (MANUAL) 1 % (0-1); GIANT PLATELET FEW; PLATELET MORPHOLOGY COMMENT NORMAL (NORMAL)
[2020-02-22 05:53] LABS: ANISOCYTOSIS SL
[2020-02-22] MEDS: ZOSYN VIAL 3.375 GRAMS 3.375 G in NS 100 ML IV + SPIKE MINIBAG* 100 ML IV SCH (05:53)
[2020-02-22 07:42] VITALS: BP 138/67
[2020-02-22] MEDS: BACTROBAN CREAM TOP SCH (08:51)
[2020-02-22] MEDS: COLACE CAP 100 MG PO SCH (08:51)
[2020-02-22] MEDS: COZAAR PO SCH (08:52)
[2020-02-22] MEDS: LASIX PO SCH (08:52)
[2020-02-22] MEDS: NORVASC TAB 10 MG PO SCH (08:52)
[2020-02-22] MEDS: NIZORAL CREAM TOP SCH (08:52)
[2020-02-22] MEDS: LIPITOR TAB 10 MG PO SCH (08:52)
[2020-02-22] MEDS: PROTONIX INJ 40 MG VIAL IVP SCH (08:53)
[2020-02-22] MEDS: SYNTHROID 50 mcg TAB PO SCH (08:53)
[2020-02-22] MEDS: PEPCID 20 MG IV PREMIX* 20 MG/50 ML BAG IV SCH (08:53)
== END 2020-02-22 11:35 | disposition home health service (06) | DRG 603 ==
LOC: MED/SURG 13:50
PROVIDERS: ADMIT Internal Medicine; ATTEND Internal Medicine
DX: K44.9 Diaphragmatic hernia without obstruction or gangrene; Z11.59 Encounter for screening for other viral diseases; R19.7 Diarrhea, unspecified; R10.84 Generalized abdominal pain; L03.115 Cellulitis of right lower limb; I10 Essential (primary) hypertension; B37.2 Candidiasis of skin and nail; K29.00 Acute gastritis without bleeding; Z91.81 History of falling; F03.90 Unspecified dementia, unspecified severity, without behavioral disturbance, psychotic disturbance, mood disturbance, and anxiety
CPT/HCPCS: 36415; 71010; 71045; 74176; 80053; 81003; 82150; 82270; 82378; 83630; 83690; 85025; 85060; 85610; 85652; 86140; 87040; 87045; 87070; 87075; 87205; 87328; 87329; 87338; 87427; 87449; 87493; 87635; 87899; 88305; 93005; 97162; 97166; 97535; 99100; A4216; A4222; C9113; J2543; J2704; J3490; J7030; J7050; S0028

== ENCOUNTER 2020-03-01 11:56 | Inpatient (IN) ==
[2020-03-01] MEDS ORDERED: ZOFRAN INJ 4 MG VIAL IVP PRN (13:52)
[2020-03-01] MEDS ORDERED: MORPHINE SULFATE INJ 2 MG INJ IVP PRN (13:56)
[2020-03-01] MEDS ORDERED: PEPCID 20 MG IV PREMIX* 20 MG/50 ML BAG IV SCH (14:00)
[2020-03-01 14:29] LABS: BASOPHILS # (AUTO) 0.2 X10^3/uL (0.0-0.1); BASOPHILS % (AUTO) 0.4 % (0.2-1.0); EOSINOPHILS % (AUTO) 0.1 % (0.9-2.9); HEMATOCRIT 32.9 % (36.0-47.0); HEMOGLOBIN 10.9 g/dL (12.0-16.0); LYMPHOCYTES # (AUTO) 1.9 X10^3/uL (1.3-2.9); LYMPHOCYTES % (AUTO) 4.2 % (21.0-51.0); MEAN CORPUSCULAR HEMOGLOBIN 29.5 pg (27.0-34.0); MEAN CORPUSCULAR HGB CONC 33.1 g/dL (33.0-35.0); MEAN PLATELET VOLUME 8.1 fL (7.4-11.0); MONOCYTES # (AUTO) 1.4 x10^3/uL (0.3-0.8); MONOCYTES % (AUTO) 3.2 % (0.0-13.0); NEUTROPHILS # (AUTO) 40.6 x10^3/uL (2.2-4.8); NEUTROPHILS % (AUTO) 92.1 % (42.0-75.0); RED CELL DISTRIBUTION WIDTH 16.4 % (11.6-16.5)
[2020-03-01 14:36] LABS: CALCIUM 9.1 mg/dL (8.5-10.1); CARBON DIOXIDE 32.6 mmol/L (21-32); COR CA(FOR HYPOALB) 9.9 mg/dL (8.5-10.1); CREATININE 1.18 mg/dL (0.55-1.02); TOTAL PROTEIN 7.1 g/dL (6.4-8.2)
[2020-03-01 14:39] LABS: PLATELET COUNT 1334 X10^3/uL (150.0-450.0); WHITE BLOOD COUNT 44.1 X10^3/uL (3.6-10.0)
[2020-03-01] MEDS: PROTONIX INJ 40 MG VIAL IVP SCH ×2 (14:49→20:44)
[2020-03-01] MEDS: NS 1000 ML 1,000 ML IV SCH (14:50)
[2020-03-01 15:13] LABS: BAND NEUTROPHILS % 2 % (0-10)
[2020-03-01 15:14] LABS: GIANT PLATELET FEW; METAMYELOCYTES % 2; MYELOCYTES % 2; PLATELET MORPHOLOGY COMMENT ABNORMAL (NORMAL)
[2020-03-01] MEDS ORDERED: K-RIDER 10 MEQ/NS 100 ML 10 MEQ/100 ML BAG IV PRN (16:42)
[2020-03-01] MEDS ORDERED: POTASSIUM CHL 40 MEQ/NS 0.45% 500 ML IV PRN (16:42)
[2020-03-01] MEDS ORDERED: K-DUR TAB 20 MEQ PO PRN (16:42)
[2020-03-01] MEDS ORDERED: MICRO K EXTEN CAP 10 MEQ PO PRN (16:42)
[2020-03-01] MEDS ORDERED: POTASSIUM CHLORIDE LIQ 20 MEQ UDC PO PRN (16:42)
[2020-03-01] MEDS ORDERED: POTASSIUM CHL 60 MEQ/NS 0.45% 500 ML IV PRN (16:42)
[2020-03-01] MEDS: MILK OF MAGNESIA PO SCH ×2 (16:54→20:43)
[2020-03-01] MEDS: BENTYL CAP 10 MG PO SCH ×2 (16:54→20:43)
[2020-03-01 17:00] LABS: BILIRUBIN,URINE NEGATIVE (NEGATIVE); BLOOD/HEMOGLOBIN,URINE NEGATIVE (NEGATIVE); COLOR,URINE YELLOW (YELLOW); GLUCOSE, URINE NEGATIVE (NEGATIVE); KETONES,URINE NEGATIVE (NEGATIVE); LEUKOCYTE ESTERASE ,URINE 1+ (NEGATIVE); NITRITES,URINE NEGATIVE (NEGATIVE); PROTEIN,URINE 2+ (NEGATIVE); UROBILINOGEN,URINE NORMAL (NORMAL)
[2020-03-01 17:01] LABS: APPEARANCE,URINE SLIGHTLY HAZY (CLEAR)
[2020-03-01 17:06] LABS: BACTERIA,URINE TRACE /HPF (NEGATIVE); RBC,URINE 0-2 /HPF (0-3); SQUAMOUS EPITHELIAL CELL,UR RARE /HPF (NEGATIVE)
[2020-03-01] MEDS: MAGNESIUM SULFATE 1 GRAM/100 mL PREMIX 1 GM/100 ML BAG IV PRN (18:26)
[2020-03-01] MEDS ORDERED: LEVAQUIN PREMIX IV 500 MG 500 MG/100 ML BAG IV SCH (20:00)
[2020-03-01] MEDS: FORTAZ or TAZICEF VIAL INJ 1 G in NS 100 ML IV + SPIKE MINIBAG* 100 ML IV SCH (20:55)
[2020-03-01] MEDS ORDERED: COLACE CAP 100 MG PO SCH (21:00)
[2020-03-01] MEDS: ZANAFLEX PO PRN (21:54)
--- NOTE | 2020-03-01 22:34 | RAD ---
Abdomen series chest, supine and upright abdomen three viewsIndication: Nausea and vomitingCOMPARISONMay 2019 chest radiograph and February 27, 2020 CT abdomen and pelvisFINDINGSHeart size is prominent. Scarring/dependent atelectasis seen in lung bases. No new consolidation seen convincingly. Monitor leads obscure detail. 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 Monitor leads obscure detail. There is moderate gas and stool in the colon, without free air, pneumatosis or dilated loop of small bowel. Vascular plaque noted. Postsurgical change seen at the left hip.No abnormal calcific density convincingly demonstratedIMPRESSION1. No convincing high-grade obstruction, free air or pneumatosis.2. Prominent heart size, chronic lung changes and other findings as above3. Moderate amount of stool in the colon suggesting constipation.Electronically signed by: JEANETTE LIU (March 01, 2020 22:33:06)
[2020-03-02] MEDS: NS 1000 ML 1,000 ML IV SCH ×4 (02:20→14:06)
[2020-03-02 06:23] LABS: EOSINOPHILS # (AUTO) 0.1 x10^3/uL (0.0-0.2); HEMATOCRIT 26.1 % (36.0-47.0)
[2020-03-02 06:28] LABS: BASOPHILS # (AUTO) 0.2 X10^3/uL (0.0-0.1); BASOPHILS % (AUTO) 0.5 % (0.2-1.0); EOSINOPHILS % (AUTO) 0.2 % (0.9-2.9); HEMOGLOBIN 8.4 g/dL (12.0-16.0); LYMPHOCYTES # (AUTO) 1.9 X10^3/uL (1.3-2.9); LYMPHOCYTES % (AUTO) 5.8 % (21.0-51.0); MEAN CORPUSCULAR HEMOGLOBIN 28.5 pg (27.0-34.0); MEAN CORPUSCULAR VOLUME 88.9 fL (80.0-100.0); MEAN PLATELET VOLUME 7.9 fL (7.4-11.0); MONOCYTES # (AUTO) 1.2 x10^3/uL (0.3-0.8); MONOCYTES % (AUTO) 3.7 % (0.0-13.0); NEUTROPHILS # (AUTO) 29.6 x10^3/uL (2.2-4.8); NEUTROPHILS % (AUTO) 89.8 % (42.0-75.0); RED BLOOD COUNT 2.94 X10^6/uL (3.5-5.4); RED CELL DISTRIBUTION WIDTH 15.9 % (11.6-16.5)
[2020-03-02 06:31] LABS: ALANINE AMINOTRANSFERASE 14 Units/L (12-78); ALBUMIN 2.3 g/dL (3.4-5.0); ALKALINE PHOSPHATASE 139 Units/L (46-116); ASPARTATE AMINO TRANSFERASE 29 Units/L (15-37); BLOOD UREA NITROGEN 29 mg/dL (7-18); CALCIUM 8.3 mg/dL (8.5-10.1); CARBON DIOXIDE 30.3 mmol/L (21-32); CHLORIDE 102 mmol/L (98-107); COR CA(FOR HYPOALB) 9.7 mg/dL (8.5-10.1); CREATININE 0.76 mg/dL (0.55-1.02); MAGNESIUM 2.3 mg/dL (1.7-2.9); SODIUM 136 mmol/L (136-145); TOTAL PROTEIN 5.7 g/dL (6.4-8.2); eGFR NON BLACK RACES > 60 (>60)
[2020-03-02 06:34] LABS: PLATELET COUNT 1149 X10^3/uL (150.0-450.0)
[2020-03-02 07:04] LABS: BAND NEUTROPHILS % 8 % (0-10); METAMYELOCYTES % 12; PLATELET MORPHOLOGY COMMENT NORMAL (NORMAL)
[2020-03-02 07:05] LABS: HYPOCHROMASIA SLIGHT
[2020-03-02] MEDS ORDERED: LOMOTIL PO PRN (08:22)
[2020-03-02] MEDS ORDERED: KLONOPIN TAB 0.5 MG PO PRN (08:22)
[2020-03-02] MEDS: MILK OF MAGNESIA PO SCH ×4 (08:28→21:06)
[2020-03-02] MEDS: PEPCID 20 MG IV PREMIX* 20 MG/50 ML BAG IV SCH ×2 (08:29→21:07)
[2020-03-02] MEDS: BENTYL CAP 10 MG PO SCH ×4 (08:29→21:05)
[2020-03-02] MEDS: PROTONIX INJ 40 MG VIAL IVP SCH ×2 (08:29→21:07)
[2020-03-02] MEDS ORDERED: MIRALAX POWDER (1 DOSE 17 G) PO ONE (09:00)
[2020-03-02] MEDS: MIRALAX POWDER (1 DOSE 17 G) PO SCH (09:49)
[2020-03-02] MEDS: SYNTHROID 50 mcg TAB PO SCH (09:58)
[2020-03-02] MEDS: SINGULAIR TAB 10 MG PO SCH (09:58)
[2020-03-02] MEDS: COLACE CAP 100 MG PO SCH ×2 (09:58→21:05)
[2020-03-02] MEDS: LIPITOR TAB 10 MG PO SCH (09:58)
[2020-03-02] MEDS: DIFLUCAN PO SCH (09:59)
[2020-03-02] MEDS: LASIX PO SCH (10:00)
[2020-03-02 10:10] VITALS: BMI 21.7
--- NOTE | 2020-03-02 10:23 | DR.UPDATE ---
H&P Update History and Physical Update: History and Physical reviewed and patient examined. Changes noted: Yes with the following: PRESENTED TO THE OFFICE YESTERDAY FOR A HOSPITAL FOLLOW-UP. SHE CONTINUES WITH COMPLAINTS OF INTRACTABLE NAUSEA, VOMITING, AND ABDOMINAL PAIN. DURING HER HOSPITAL STAY ONE WEEK AGO, SHE COMPLAINED DIARRHEA. NOW, SHE REPORTS CONSTIPATION. SHE REPORTS THAT SHE DID SEE BLOOD IN HER LAST BOWEL MOVEMENT. SHE ALSO REPORTS SHORTNESS OF BREATH AND A PRODUCTIVE COUGH. HOME HEALTH REPORTED THAT WHEN THEY OBTAINED LABS, HER WBC WAS NOTED TO BE ELEVATED, AROUND 40,000. WE READMITTED PATIENT FOR FURTHER EVALUATION AND TREATMENT OF INTRACTABLE LEUKOCYTOSIS, NAUSEA, VOMITING, ABDOMINAL PAIN, GI BLEED, AND ACUTE BRONCHITIS. ON ARRIVAL TO THE HOSPITAL, VITALS WERE 98.7-119-18-91%RA-139/65. LABS WERE OBTAINED. ABNORMAL LAB VALUES INCLUDE THE FOLLOWING: WBC 44.1, HGB 10.9, HCT 32.9, PLT COUNG 1334, SODIUM 135, CHLORIDE 97, CREATININE 1.18, GLUOCSE 189, AST 39, ALK PHOS 182, ALBUMIN 3.0. A URINALYSIS WAS OBTAINED AND REVEALED: WBC 3-5, RBC 0-2, LEUKOCYTES 1+, BACTERIA TRACE. BLOOD, URINE, AND SPUTUM CULTURES ARE PENDING. AN ABDOMEN XRAY WAS OBTAINED AND REVEALED: 1. No convincing high-grade obstruction, free air or pneumatosis. 2. Prominent heart size, chronic lung changes and other findings as above 3. Moderate amount of stool in the colon suggesting constipation. SHE WAS STARTED ON NS AT 125ML/HR, FORTAZ 1G IV DAILY, PEPCID 20MG IV BID, PROTONIX 40MG IV BID, ZOFRAN 4MG IV Q4H PRN, MORPHINE 2MG IV Q4H PRN PAIN, DICYVLOMINE 20MG PO QID, THE POTASSIUM AND MAGNESIUM PROTOCOLS, AND HOME MEDICATIONS WERE RESUMED. ON MORNING LABS, WBC DECREASED TO 33.0, HGB 8.4, HCT 26.1, PLT COUNT 1149. SHE REPORTS COUGH AND SHORTNESS OF BREATH. WE WILL OBTAIN A CHEST XRAY AND START DUONEBS QID. OTHERWISE, WE PLAN TO FOLLOW UP WITH AM LABS AND CONTINUE TO MONITOR. Prescription drug monitoring program results: PDMP reviewed and no concerns identified H&P Reviewed: Yes Patient was examined?: Yes
--- NOTE | 2020-03-02 10:43 | RAD ---
HISTORYSOBSTUDYPortable AP chestCOMPARISONYesterday March 01FINDINGSThe heart size is normal and the aorta is tortuous. There is limited inspiration with minimal subsegmental atelectasis at the right lung base. The left costophrenic angle is blunted. No significant bony abnormality is demonstrated.IMPRESSION1. Small left pleural effusion suggested2. Minimal subsegmental atelectasis at the right lung base laterallyElectronically signed by: ABIGAIL GODOY (March 02, 2020 10:42:39)
[2020-03-02] MEDS: VSL#3 PO SCH (11:08)
[2020-03-02] MEDS: DUONEB 0.5 MG/3 MG (3 mL) NEB SCH ×4 (13:55→20:00)
[2020-03-02] MEDS: FORTAZ or TAZICEF VIAL INJ 1 G in NS 100 ML IV + SPIKE MINIBAG* 100 ML IV SCH (21:06)
[2020-03-02] MEDS: ZANAFLEX PO PRN (21:26)
[2020-03-03] MEDS: NS 1000 ML 1,000 ML IV SCH ×7 (01:28→21:52)
[2020-03-03 06:24] LABS: ALANINE AMINOTRANSFERASE 18 Units/L (12-78); ALBUMIN 2.5 g/dL (3.4-5.0); ALKALINE PHOSPHATASE 142 Units/L (46-116); ASPARTATE AMINO TRANSFERASE 32 Units/L (15-37); BLOOD UREA NITROGEN 14 mg/dL (7-18); CALCIUM 8.7 mg/dL (8.5-10.1); CARBON DIOXIDE 30.2 mmol/L (21-32); CHLORIDE 99 mmol/L (98-107); COR CA(FOR HYPOALB) 9.9 mg/dL (8.5-10.1); COR NA(FOR HYPERGLY) 135 mmol/L (136-145); CREATININE 0.71 mg/dL (0.55-1.02); SODIUM 135 mmol/L (136-145); TOTAL PROTEIN 6.2 g/dL (6.4-8.2); eGFR NON BLACK RACES > 60 (>60)
[2020-03-03 06:27] LABS: BASOPHILS # (AUTO) 0.2 X10^3/uL (0.0-0.1); BASOPHILS % (AUTO) 0.5 % (0.2-1.0); EOSINOPHILS # (AUTO) 0.1 x10^3/uL (0.0-0.2); EOSINOPHILS % (AUTO) 0.3 % (0.9-2.9); HEMATOCRIT 28.1 % (36.0-47.0); HEMOGLOBIN 9.2 g/dL (12.0-16.0); LYMPHOCYTES # (AUTO) 2.1 X10^3/uL (1.3-2.9); LYMPHOCYTES % (AUTO) 5.1 % (21.0-51.0); MEAN CORPUSCULAR HEMOGLOBIN 29.4 pg (27.0-34.0); MEAN CORPUSCULAR HGB CONC 32.8 g/dL (33.0-35.0); MEAN CORPUSCULAR VOLUME 89.5 fL (80.0-100.0); MEAN PLATELET VOLUME 8.3 fL (7.4-11.0); MONOCYTES # (AUTO) 1.1 x10^3/uL (0.3-0.8); MONOCYTES % (AUTO) 2.8 % (0.0-13.0); NEUTROPHILS % (AUTO) 91.3 % (42.0-75.0); RED BLOOD COUNT 3.14 X10^6/uL (3.5-5.4)
[2020-03-03 06:42] LABS: PLATELET COUNT 1224 X10^3/uL (150.0-450.0); WHITE BLOOD COUNT 40.5 X10^3/uL (3.6-10.0)
[2020-03-03 06:54] LABS: BAND NEUTROPHILS % 8 % (0-10); METAMYELOCYTES % 7
[2020-03-03 06:56] LABS: PLATELET MORPHOLOGY COMMENT NORMAL (NORMAL)
[2020-03-03] MEDS ORDERED: NS 50 ML IV 50 ML IV ONE (08:46)
[2020-03-03] MEDS: SINGULAIR TAB 10 MG PO SCH (09:26)
[2020-03-03] MEDS: COLACE CAP 100 MG PO SCH ×2 (09:26→20:31)
[2020-03-03] MEDS: LIPITOR TAB 10 MG PO SCH (09:26)
[2020-03-03] MEDS: MIRALAX POWDER (1 DOSE 17 G) PO SCH (09:27)
[2020-03-03] MEDS: BENTYL CAP 10 MG PO SCH ×4 (09:27→20:31)
[2020-03-03] MEDS: VSL#3 PO SCH (09:27)
[2020-03-03] MEDS: SYNTHROID 50 mcg TAB PO SCH (09:27)
[2020-03-03] MEDS: LASIX PO SCH (09:29)
[2020-03-03] MEDS: DIFLUCAN PO SCH (09:29)
[2020-03-03] MEDS: MILK OF MAGNESIA PO SCH ×2 (09:29→14:08)
[2020-03-03] MEDS: DUONEB 0.5 MG/3 MG (3 mL) NEB SCH ×4 (09:35→20:58)
[2020-03-03] MEDS: PEPCID 20 MG IV PREMIX* 20 MG/50 ML BAG IV SCH ×2 (10:12→20:31)
[2020-03-03] MEDS: PROTONIX INJ 40 MG VIAL IVP SCH ×2 (10:12→20:30)
[2020-03-03 15:00] LABS: BILIRUBIN,URINE NEGATIVE (NEGATIVE); BLOOD/HEMOGLOBIN,URINE NEGATIVE (NEGATIVE); GLUCOSE, URINE NEGATIVE (NEGATIVE); KETONES,URINE NEGATIVE (NEGATIVE); LEUKOCYTE ESTERASE ,URINE NEGATIVE (NEGATIVE); NITRITES,URINE NEGATIVE (NEGATIVE); PROTEIN,URINE NEGATIVE (NEGATIVE); UROBILINOGEN,URINE NORMAL (NORMAL)
[2020-03-03 15:20] LABS: APPEARANCE,URINE CLEAR (CLEAR); COLOR,URINE YELLOW (YELLOW)
[2020-03-03] MEDS ORDERED: CHLORASEPTIC SPRAY MT ONE (17:47)
[2020-03-03] MEDS ORDERED: NYSTATIN SUSP ONE (17:47)
[2020-03-03] MEDS: CHLORASEPTIC SPRAY MT PRN (17:53)
[2020-03-03] MEDS: NYSTATIN SUSP PO SCH ×2 (17:54→20:32)
[2020-03-03] MEDS: ZANAFLEX PO PRN (20:31)
[2020-03-03] MEDS: FORTAZ or TAZICEF VIAL INJ 1 G in NS 100 ML IV + SPIKE MINIBAG* 100 ML IV SCH (20:31)
[2020-03-03] MEDS: NORCO 5/325 MG TAB PO PRN (22:00)
[2020-03-04] MEDS: NS 1000 ML 1,000 ML IV SCH ×5 (05:30→21:11)
[2020-03-04 06:01] LABS: BASOPHILS # (AUTO) 0.3 X10^3/uL (0.0-0.1); BASOPHILS % (AUTO) 0.8 % (0.2-1.0); EOSINOPHILS # (AUTO) 0.4 x10^3/uL (0.0-0.2); EOSINOPHILS % (AUTO) 1.1 % (0.9-2.9); HEMATOCRIT 25.5 % (36.0-47.0); HEMOGLOBIN 8.5 g/dL (12.0-16.0); LYMPHOCYTES # (AUTO) 2.3 X10^3/uL (1.3-2.9); LYMPHOCYTES % (AUTO) 6.4 % (21.0-51.0); MEAN CORPUSCULAR HEMOGLOBIN 29.9 pg (27.0-34.0); MEAN CORPUSCULAR HGB CONC 33.5 g/dL (33.0-35.0); MEAN CORPUSCULAR VOLUME 89.4 fL (80.0-100.0); MEAN PLATELET VOLUME 7.5 fL (7.4-11.0); MONOCYTES # (AUTO) 0.7 x10^3/uL (0.3-0.8); MONOCYTES % (AUTO) 2.1 % (0.0-13.0); NEUTROPHILS # (AUTO) 31.4 x10^3/uL (2.2-4.8); NEUTROPHILS % (AUTO) 89.6 % (42.0-75.0); RED BLOOD COUNT 2.85 X10^6/uL (3.5-5.4); RED CELL DISTRIBUTION WIDTH 15.9 % (11.6-16.5)
[2020-03-04 06:18] LABS: ALANINE AMINOTRANSFERASE 14 Units/L (12-78); ALBUMIN 2.2 g/dL (3.4-5.0); ALKALINE PHOSPHATASE 122 Units/L (46-116); ASPARTATE AMINO TRANSFERASE 19 Units/L (15-37); BLOOD UREA NITROGEN 8 mg/dL (7-18); CALCIUM 8.5 mg/dL (8.5-10.1); CARBON DIOXIDE 31.5 mmol/L (21-32); CHLORIDE 101 mmol/L (98-107); COR CA(FOR HYPOALB) 9.9 mg/dL (8.5-10.1); CREATININE 0.81 mg/dL (0.55-1.02); SODIUM 136 mmol/L (136-145); TOTAL PROTEIN 5.6 g/dL (6.4-8.2); eGFR NON BLACK RACES > 60 (>60)
[2020-03-04 06:32] LABS: PLATELET COUNT 1209 X10^3/uL (150.0-450.0); WHITE BLOOD COUNT 35.1 X10^3/uL (3.6-10.0)
[2020-03-04 06:37] LABS: BAND NEUTROPHILS % 12 % (0-10); METAMYELOCYTES % 9; MYELOCYTES % 1; PLATELET MORPHOLOGY COMMENT NORMAL (NORMAL)
--- NOTE | 2020-03-04 08:20 | RAD ---
HISTORYcoughingSTUDYCHEST, 1 VIEWCOMPARISONPrevious chest radiograph from 03/02/2020FINDINGSHeart size is accentuated by shallow inspiration. Bibasilar atelectasis is again noted as well. No significant effusion on either side. Bony thorax is unremarkable.IMPRESSIONShallow inspiration with bibasilar atelectasis.Electronically signed by: ALFREDO SAMUEL (March 04, 2020 08:18:40)
[2020-03-04] MEDS: PEPCID 20 MG IV PREMIX* 20 MG/50 ML BAG IV SCH ×2 (08:50→20:25)
[2020-03-04] MEDS: VSL#3 PO SCH (08:51)
[2020-03-04] MEDS: LIPITOR TAB 10 MG PO SCH (08:51)
[2020-03-04] MEDS: SINGULAIR TAB 10 MG PO SCH (08:51)
[2020-03-04] MEDS: COLACE CAP 100 MG PO SCH ×2 (08:51→20:21)
[2020-03-04] MEDS: BENTYL CAP 10 MG PO SCH ×4 (08:51→20:21)
[2020-03-04] MEDS: PROTONIX INJ 40 MG VIAL IVP SCH ×2 (08:52→20:20)
[2020-03-04] MEDS: SYNTHROID 50 mcg TAB PO SCH (08:52)
[2020-03-04] MEDS: LASIX PO SCH (08:53)
[2020-03-04] MEDS: DIFLUCAN PO SCH (08:53)
[2020-03-04] MEDS: MIRALAX POWDER (1 DOSE 17 G) PO SCH (08:54)
[2020-03-04] MEDS: NYSTATIN SUSP PO SCH ×4 (08:54→20:20)
[2020-03-04] MEDS: DUONEB 0.5 MG/3 MG (3 mL) NEB SCH ×4 (09:50→21:30)
[2020-03-04] MEDS: NORCO 5/325 MG TAB PO PRN (20:22)
[2020-03-04] MEDS: FORTAZ or TAZICEF VIAL INJ 1 G in NS 100 ML IV + SPIKE MINIBAG* 100 ML IV SCH (20:24)
[2020-03-05] MEDS: NS 1000 ML 1,000 ML IV SCH ×3 (05:30→22:02)
[2020-03-05 06:20] LABS: ALANINE AMINOTRANSFERASE 15 Units/L (12-78); ALBUMIN 2.5 g/dL (3.4-5.0); ALKALINE PHOSPHATASE 140 Units/L (46-116); ASPARTATE AMINO TRANSFERASE 25 Units/L (15-37); BLOOD UREA NITROGEN 5 mg/dL (7-18); CALCIUM 8.9 mg/dL (8.5-10.1); CARBON DIOXIDE 31.1 mmol/L (21-32); CHLORIDE 99 mmol/L (98-107); COR CA(FOR HYPOALB) 10.1 mg/dL (8.5-10.1); CREATININE 0.72 mg/dL (0.55-1.02); SODIUM 136 mmol/L (136-145); TOTAL PROTEIN 6.4 g/dL (6.4-8.2); eGFR NON BLACK RACES > 60 (>60)
[2020-03-05 06:43] LABS: BASOPHILS # (AUTO) 0.3 X10^3/uL (0.0-0.1); BASOPHILS % (AUTO) 0.7 % (0.2-1.0); EOSINOPHILS # (AUTO) 0.4 x10^3/uL (0.0-0.2); HEMATOCRIT 31.2 % (36.0-47.0); HEMOGLOBIN 10.1 g/dL (12.0-16.0); LYMPHOCYTES # (AUTO) 2.7 X10^3/uL (1.3-2.9); LYMPHOCYTES % (AUTO) 6.4 % (21.0-51.0); MEAN CORPUSCULAR HEMOGLOBIN 28.6 pg (27.0-34.0); MEAN CORPUSCULAR HGB CONC 32.4 g/dL (33.0-35.0); MEAN CORPUSCULAR VOLUME 88.2 fL (80.0-100.0); MEAN PLATELET VOLUME 8.4 fL (7.4-11.0); MONOCYTES # (AUTO) 1.1 x10^3/uL (0.3-0.8); MONOCYTES % (AUTO) 2.5 % (0.0-13.0); NEUTROPHILS # (AUTO) 37.3 x10^3/uL (2.2-4.8); NEUTROPHILS % (AUTO) 89.4 % (42.0-75.0); RED BLOOD COUNT 3.54 X10^6/uL (3.5-5.4); RED CELL DISTRIBUTION WIDTH 15.8 % (11.6-16.5)
[2020-03-05 06:46] LABS: WHITE BLOOD COUNT 41.7 X10^3/uL (3.6-10.0)
[2020-03-05 06:47] LABS: PLATELET COUNT 1024 X10^3/uL (150.0-450.0)
[2020-03-05 07:19] LABS: BAND NEUTROPHILS % 9 % (0-10); METAMYELOCYTES % 6; PLATELET MORPHOLOGY COMMENT NORMAL (NORMAL)
--- NOTE | 2020-03-05 07:36 | RAD ---
HISTORYCOUGHINGSTUDYCHEST, 1 VIEWCOMPARISONMay 2019. AndFINDINGSThe trachea is midline. The cardiac silhouette is unremarkable. 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 The effusion versus atelectasis in the left lung base appear smaller than it did on March 04.. The bony thorax is unremarkable.IMPRESSIONRight lung is clear. There is improved aeration in the left lower lung field compared to the last chest film March 04, 2020.Electronically signed by: LYNETTE SCHWARZ (Mar 05, 2020 07:35:34)
[2020-03-05] MEDS: PEPCID 20 MG IV PREMIX* 20 MG/50 ML BAG IV SCH ×2 (08:35→21:15)
[2020-03-05] MEDS: LIPITOR TAB 10 MG PO SCH (08:36)
[2020-03-05] MEDS: COLACE CAP 100 MG PO SCH ×2 (08:36→21:15)
[2020-03-05] MEDS: BENTYL CAP 10 MG PO SCH ×4 (08:36→21:15)
[2020-03-05] MEDS: SINGULAIR TAB 10 MG PO SCH (08:36)
[2020-03-05] MEDS: SYNTHROID 50 mcg TAB PO SCH (08:36)
[2020-03-05] MEDS: KLOR-CON PO PRN (08:37)
[2020-03-05] MEDS: VSL#3 PO SCH (08:37)
[2020-03-05] MEDS: PROTONIX INJ 40 MG VIAL IVP SCH ×2 (08:38→21:55)
[2020-03-05] MEDS: NYSTATIN SUSP PO SCH ×4 (08:38→21:15)
[2020-03-05] MEDS: DIFLUCAN PO SCH (08:38)
[2020-03-05] MEDS: LASIX PO SCH (08:38)
[2020-03-05] MEDS: NORCO 5/325 MG TAB PO PRN (09:12)
[2020-03-05] MEDS: MAGNESIUM SULFATE 1 GRAM/100 mL PREMIX 1 GM/100 ML BAG IV PRN ×3 (09:14→11:27)
[2020-03-05] MEDS: MIRALAX POWDER (1 DOSE 17 G) PO SCH (09:20)
[2020-03-05] MEDS: DUONEB 0.5 MG/3 MG (3 mL) NEB SCH ×4 (09:50→20:30)
[2020-03-05] MEDS: CHLORASEPTIC SPRAY MT PRN (10:19)
--- NOTE | 2020-03-05 20:48 | PCM.PROG ---
Progress Note - Progress Note for Day of Date of Exam: 03/05/20 - Subjective Subjective: IS BEING TREATED FOR LEUKOCYTOSIS, ACUTE BRONCHITIS, ANEMIA, AND INTRACTABLE NAUSEA AND VOMITING. SHE INITIALLY REPORTED HAVING BLOOD IN HER STOOL, BUT DENIES PRESENCE OF BLOOD SINCE ADMISSION. TODAY, SHE IS ALERT AND ORIENTED, SITTING UP IN CHAIR ON MORNING ROUNDS. SHE CONTINUES WITH WEAKNESS, COUGH, AND NAUSEA. ON EXAMINATION, HEART IS REGULAR IN RATE AND RHYTHM. BILATERAL LUNGS ARE NOTED WITH DIMINISHED LUNG SOUNDS THROUGHOUT. ABDOMEN IS FLAT, SOFT, AND NON-TENDER WITH NORMAL BOWEL SOUNDS NOTED IN ALL QUADRANTS. HER VITALS THIS MORNING ARE: 98.5-90-18-93%NC-155/74. LABS WERE OBTAINED. ABNORMAL LAB VALUES INCLUDE THE FOLLOWING: WBC 41.7, HGB 10.1, HCT 31.2, PLT COUNT 1024, POTASSIUM 3.3, BUN 5, MAGNESIUM 1.4, ALK PHOS 140, ALBUMIN 2.5. BLOOD AND SPUTUM CULTURES ARE PENDING. A CHEST XRAY WAS OBTAINED AND REVEALED: Right lung is clear. There is improved aeration in the left lower lung field compared to the last chest film March 04, 2020. SHE IS CURRENTLY RECEIVING: NS AT 125ML/HR, FORTAZ 1G IV DAILY, DUONEBS, PEPCID 20MG IV BID, PROTONIX 40MG IV BID, ZOFRAN 4MG IV Q4H PRN, MORPHINE 2MG IV Q4H PRN PAIN, DICYCLOMINE 20MG PO QID, THE POTASSIUM AND MAGNESIUM PROTOCOLS, AND HOME MEDICATIONS WERE RESUMED. WE WILL CONTINUE WITH CURRENT PLAN OF CARE TODAY. OTHERWISE, WE WILL FOLLOW UP WITH AM LABS AND CONTINUE TO MONITOR. - Past Medical Family Social History Past Med/Fam/Surg Hx: No changes since H&P Allergies: Allergies ciprofloxacin [From Cipro] Allergy (Verified 05/25/17 18:00) codeine Allergy (Verified 05/25/17 18:00) metronidazole [From Flagyl] Allergy (Verified 12/12/19 09:12) - Review of Systems ROS: No change since H&P - Vital Signs and I&O's Vital Signs: Temperature 98.4 F Pulse Rate [Left Brachial] 108 Pulse Rate 110 Respiratory Rate 20 Blood Pressure [Left Arm] 155/74 Blood Pressure [Right Arm] 142/78 O2 Sat by Pulse Oximetry 93 Intake and Output: Intake & Output 03/03/20 03/04/20 03/05/20 03/06/20 11:59 11:59 11:59 11:59 Intake Total 2590 / 2590 3010 / 3010 4148 / 4148 1565 / 1565 Output Total 1950 / 1950 2275 / 2275 4600 / 4600 1800 / 1800 Balance 640 / 640 735 / 735 -452 / -452 -235 / -235 - Physical Exam Oriented: Normal Eyes: Normal Ear: Normal Nose: Normal Throat: Normal Respiratory: Generalized, Diminished Cardiovascular: Normal : Normal Auscultation: Bowel Sounds: Normal Palpation: Normal Tenderness: Normal Skin: Normal Musculoskeletal: Normal Psychiatric: Normal Mood Description: Calm Affect: Normal Speech Pattern: Clear, Appropriate - Laboratory and Diagnostics Result Diagrams: 03/05/20 04:09 03/05/20 12:05 Labs: 03/02/20 07:26 Sputum - Expectorated Sputum Sputum Culture - Final 03/02/20 07:26 Sputum - Expectorated Sputum - Final 03/01/20 20:23 Blood Blood Culture - Preliminary 03/01/20 20:15 Blood Blood Culture - Preliminary 03/01/20 16:40 Urine,Clean Catch Urine Culture - Final Laboratory WBC 41.7 X10^3/uL (3.6-10.0) H* 03/05/20 04:09 RBC 3.54 X10^6/uL (3.5-5.4) 03/05/20 04:09 Hgb 10.1 g/dL (12.0-16.0) L 03/05/20 04:09 Hct 31.2 % (36.0-47.0) L 03/05/20 04:09 MCV 88.2 fL (80.0-100.0) 03/05/20 04:09 MCH 28.6 pg (27.0-34.0) 03/05/20 04:09 MCHC 32.4 g/dL (33.0-35.0) L 03/05/20 04:09 RDW 15.8 % (11.6-16.5) 03/05/20 04:09 Plt Count 1024 X10^3/uL (150.0-450.0) H* D 03/05/20 04:09 Plt Count Comment Increased (ADEQUATE) A 03/05/20 04:09 MPV 8.4 fL (7.4-11.0) 03/05/20 04:09 Neut % (Auto) 89.4 % (42.0-75.0) H 03/05/20 04:09 Lymph % (Auto) 6.4 % (21.0-51.0) L 03/05/20 04:09 [place] % (Auto) 2.5 % (0.0-13.0) 03/05/20 04:09 Eos % (Auto) 1.0 % (0.9-2.9) 03/05/20 04:09 Baso % (Auto) 0.7 % (0.2-1.0) 03/05/20 04:09 Neut # (Auto) 37.3 x10^3/uL (2.2-4.8) H 03/05/20 04:09 Lymph # (Auto) 2.7 X10^3/uL (1.3-2.9) 03/05/20 04:09 [place] # (Auto) 1.1 x10^3/uL (0.3-0.8) H 03/05/20 04:09 Eos # (Auto) 0.4 x10^3/uL (0.0-0.2) H 03/05/20 04:09 Baso # (Auto) 0.3 X10^3/uL (0.0-0.1) H 03/05/20 04:09 Absolute Nucleated RBC 0.1 /100WBC 03/05/20 04:09 Total Counted 100 03/05/20 04:09 Neutrophils % (Manual) 72 % (39-76) 03/05/20 04:09 Band Neutrophils % 9 % (0-10) 03/05/20 04:09 Lymphocytes % (Manual) 8 % (13-43) L 03/05/20 04:09 Monocytes % (Manual) 5 % (4-9) 03/05/20 04:09 Eosinophils % (Manual) 2 % (0-6) 03/02/20 05:30 Metamyelocytes % 6 03/05/20 04:09 Myelocytes % 1 03/04/20 05:50 Giant Platelets Few 03/01/20 14:14 Plt Morphology Comment Normal (NORMAL) 03/05/20 04:09 RBC Morphology Normal (NORMAL) 03/05/20 04:09 Hypochromasia Slight A 03/02/20 05:30 Sodium 136 mmol/L (136-145) 03/05/20 04:09 Corrected Sodium TNP 03/05/20 04:09 Potassium 3.8 mmol/L (3.5-5.1) 03/05/20 12:05 Chloride 99 mmol/L (98-107) 03/05/20 04:09 Carbon Dioxide 31.1 mmol/L (21-32) 03/05/20 04:09 BUN 5 mg/dL (7-18) L 03/05/20 04:09 Creatinine 0.72 mg/dL (0.55-1.02) 03/05/20 04:09 Est GFR (MDRD) Af Amer > 60 (>60) 03/05/20 04:09 Est GFR (MDRD) Non-Af > 60 (>60) 03/05/20 04:09 Glucose 82 mg/dL (65-99) 03/05/20 04:09 Calcium 8.9 mg/dL (8.5-10.1) 03/05/20 04:09 Corrected Calcium 10.1 mg/dL (8.5-10.1) 03/05/20 04:09 Magnesium 1.4 mg/dL (1.7-2.9) L 03/05/20 04:09 Total Bilirubin 0.20 mg/dL (0.2-1.0) 03/05/20 04:09 AST 25 Units/L (15-37) 03/05/20 04:09 ALT 15 Units/L (12-78) 03/05/20 04:09 Alkaline Phosphatase 140 Units/L (46-116) H 03/05/20 04:09 Total Protein 6.4 g/dL (6.4-8.2) 03/05/20 04:09 Albumin 2.5 g/dL (3.4-5.0) L 03/05/20 04:09 Globulin 3.9 g/dL (2.5-4.5) 03/05/20 04:09 Albumin/Globulin Ratio 0.6 Ratio (1.1-2.1) L 03/05/20 04:09 Specimen Type Catherized urine 03/03/20 14:25 Urine Color Yellow (YELLOW) 03/03/20 14:25 Urine Appearance Clear (CLEAR) 03/03/20 14:25 Urine pH 7.0 (5.0 - 8.0) 03/03/20 14:25 Ur Specific [place] 1.015 (1.000-1.030) 03/03/20 14:25 Urine Protein Negative (NEGATIVE) 03/03/20 14:25 Urine Glucose (UA) Negative (NEGATIVE) 03/03/20 14:25 Urine Ketones Negative (NEGATIVE) 03/03/20 14:25 Urine Occult Blood Negative (NEGATIVE) 03/03/20 14:25 Urine Nitrite Negative (NEGATIVE) 03/03/20 14:25 Urine Bilirubin Negative (NEGATIVE) 03/03/20 14:25 Urine Urobilinogen Normal (NORMAL) 03/03/20 14:25 Ur Leukocyte Esterase Negative (NEGATIVE) 03/03/20 14:25 Urine RBC 0-2 /HPF (0-3) 03/01/20 16:40 Urine WBC 3-5 /HPF (0-5) 03/01/20 16:40 Ur Squamous Epith Cells Rare /HPF (NEGATIVE) 03/01/20 16:40 Urine Bacteria Trace /HPF (NEGATIVE) 03/01/20 16:40 Ur Culture Indicated? No/not indicated 03/01/20 16:40 Stool Description 5g grn unformed 03/03/20 14:20 Stl Occult Blood (IFOB) Negative (NEGATIVE) 03/03/20 14:20 - Plan (1) Leukocytosis Status: Acute Qualifiers: Leukocytosis type: unspecified Qualified Code(s): D72.829 - Elevated white blood cell count, unspecified Plan: PERIPHERAL SMEAR PENDING, IV ANTIBIOTICS, CONTINUE TO MONITOR (2) Acute bronchitis Status: Acute Qualifiers: Bronchitis organism: unspecified organism Qualified Code(s): J20.9 - Acute bronchitis, unspecified Plan: IV ANTIBIOTICS, RESPIRATORY TX, CONTINUE TO MONITOR (3) Anemia Status: Acute Qualifiers: Anemia type: iron deficiency Iron deficiency anemia type: unspecified iron deficiency Qualified Code(s): D50.9 - Iron deficiency anemia, unspecified (4) Intractable nausea and vomiting Status: Acute
[2020-03-05] MEDS: FORTAZ or TAZICEF VIAL INJ 1 G in NS 100 ML IV + SPIKE MINIBAG* 100 ML IV SCH (21:54)
[2020-03-06] MEDS: NS 1000 ML 1,000 ML IV SCH ×2 (04:04→15:01)
[2020-03-06 05:34] LABS: BASOPHILS # (AUTO) 0.4 X10^3/uL (0.0-0.1); EOSINOPHILS # (AUTO) 0.4 x10^3/uL (0.0-0.2); EOSINOPHILS % (AUTO) 1.1 % (0.9-2.9); HEMATOCRIT 28.5 % (36.0-47.0); HEMOGLOBIN 9.3 g/dL (12.0-16.0); LYMPHOCYTES # (AUTO) 1.9 X10^3/uL (1.3-2.9); LYMPHOCYTES % (AUTO) 4.8 % (21.0-51.0); MEAN CORPUSCULAR HEMOGLOBIN 28.6 pg (27.0-34.0); MEAN CORPUSCULAR HGB CONC 32.7 g/dL (33.0-35.0); MEAN CORPUSCULAR VOLUME 87.6 fL (80.0-100.0); MEAN PLATELET VOLUME 8.1 fL (7.4-11.0); MONOCYTES % (AUTO) 2.5 % (0.0-13.0); NEUTROPHILS # (AUTO) 36.3 x10^3/uL (2.2-4.8); NEUTROPHILS % (AUTO) 90.6 % (42.0-75.0); RED BLOOD COUNT 3.25 X10^6/uL (3.5-5.4); RED CELL DISTRIBUTION WIDTH 15.9 % (11.6-16.5)
[2020-03-06 05:53] LABS: ALANINE AMINOTRANSFERASE 16 Units/L (12-78); ALBUMIN 2.3 g/dL (3.4-5.0); ALKALINE PHOSPHATASE 140 Units/L (46-116); ASPARTATE AMINO TRANSFERASE 22 Units/L (15-37); BLOOD UREA NITROGEN 6 mg/dL (7-18); CALCIUM 8.4 mg/dL (8.5-10.1); CHLORIDE 97 mmol/L (98-107); COR CA(FOR HYPOALB) 9.8 mg/dL (8.5-10.1); COR NA(FOR HYPERGLY) 133 mmol/L (136-145); CREATININE 0.62 mg/dL (0.55-1.02); MAGNESIUM 1.5 mg/dL (1.7-2.9); SODIUM 133 mmol/L (136-145); TOTAL PROTEIN 5.9 g/dL (6.4-8.2); eGFR NON BLACK RACES > 60 (>60)
[2020-03-06 05:54] LABS: PLATELET COUNT 1169 X10^3/uL (150.0-450.0); WHITE BLOOD COUNT 40.1 X10^3/uL (3.6-10.0)
[2020-03-06 06:39] LABS: BAND NEUTROPHILS % 2 % (0-10)
[2020-03-06 06:40] LABS: GIANT PLATELET FEW; PLATELET MORPHOLOGY COMMENT ABNORMAL (NORMAL)
--- NOTE | 2020-03-06 07:42 | RAD ---
HISTORYshortness of breath history of hypertension diabetes CVA and lung cancer, had right lower lobectomySTUDYCHEST, 1 VIEWCOMPARISONChest film March 05, 2020FINDINGSThe trachea is midline. There is chronic elevation the right hemidiaphragm. The cardiac silhouette is unremarkable . The lungs are clear without focal infiltrate but there is hazy density possibly effusion in the left lung base. When compared to yesterdays film there is no significant interval change.. The bony thorax is unremarkable.IMPRESSIONThe right lung is clear with chronic elevation right hemidiaphragm from right lower lobectomy.Hazy density in the left lung base may be pleural effusion and/or atelectasis and is stable over the last 2 days.Electronically signed by: LYNETTE SCHWARZ (Mar 06, 2020 07:40:44)
[2020-03-06] MEDS: PEPCID 20 MG IV PREMIX* 20 MG/50 ML BAG IV SCH (09:08)
[2020-03-06] MEDS: PROTONIX INJ 40 MG VIAL IVP SCH (09:11)
[2020-03-06] MEDS: COLACE CAP 100 MG PO SCH (09:12)
[2020-03-06] MEDS: BENTYL CAP 10 MG PO SCH ×2 (09:12→12:37)
[2020-03-06] MEDS: SYNTHROID 50 mcg TAB PO SCH (09:13)
[2020-03-06] MEDS: SINGULAIR TAB 10 MG PO SCH (09:13)
[2020-03-06] MEDS: DIFLUCAN PO SCH (09:13)
[2020-03-06] MEDS: VSL#3 PO SCH (09:14)
[2020-03-06] MEDS: NYSTATIN SUSP PO SCH ×2 (09:14→12:37)
[2020-03-06] MEDS: LIPITOR TAB 10 MG PO SCH (09:15)
[2020-03-06] MEDS: LASIX PO SCH (09:15)
[2020-03-06] MEDS: MIRALAX POWDER (1 DOSE 17 G) PO SCH (09:15)
[2020-03-06] MEDS: DUONEB 0.5 MG/3 MG (3 mL) NEB SCH (09:18)
[2020-03-06 12:30] VITALS: BP 147/70
[2020-03-06] MEDS: KLOR-CON PO PRN (14:32)
== END 2020-03-06 16:00 | disposition home health service (06) | DRG 203 ==
LOC: MED/SURG → OBSVTOIN 13:22
PROVIDERS: ADMIT Internal Medicine; ATTEND Internal Medicine
DX: R41.82 Altered mental status, unspecified; J20.9 Acute bronchitis, unspecified; K21.9 Gastro-esophageal reflux disease without esophagitis; D64.9 Anemia, unspecified; D72.829 Elevated white blood cell count, unspecified; K59.00 Constipation, unspecified; R10.9 Unspecified abdominal pain; K29.70 Gastritis, unspecified, without bleeding; R26.2 Difficulty in walking, not elsewhere classified
CPT/HCPCS: 36415; 71010; 71045; 74022; 80053; 81001; 81003; 82270; 83735; 84132; 85025; 85060; 87040; 87070; 87086; 87205; 87651; 94640; 94760; 97163; 97166; 97535; A4216; A4222; C9113; J0713; J2405; J3475; J7030; J7050; J7620; S0028

== ENCOUNTER 2020-04-05 15:43 | Inpatient (IN) ==
--- NOTE | 2020-04-05 15:54 | DR.SOBA ---
HPI Time Seen Time Seen by Provider: 04/05/20 15:54 HPI Comment HPI Comment: PATIENT IS 89YR OLD FEMALE IN ER VIA EMS FOR INCREASING SOB AND FEVER,CHILLS, COUGH AND LOWER EXTREMITY EDEMA FOR FEW DAYS AND WORSE SINCE YESTERDAY. PATIENTS HOME HEALTH NURSE WANTED HER EVALUATED HER CONDITION IS GETTING WORSE. PATIENT SAID SHE IS WEAK, FATIGUE AND DRAIN OF ENERGY. SHE IS RUNNING FEVER AND HAVING CHILLS. COUGH IS PRODUCTIVE, SMALL YELLOW SPUTUM. ON LASIX AND TOOK HER LASIX TODAY. DENIES DYSURIA. PLEURITIC CHEST PAIN SINCE YESTERDAY. Complaints Chief Complaint Doctors Comments: INCREASING SOB, COUGH, CHILLS AND EDEMA TIMES FEW DAYS, WORSE TIMES ONE DAY. COVID-19 Coronavirus risk:travel/contact w/high risk person: No Has patient experienced Coronavirus symptoms: No Coronavirus symptoms experienced: Fever Reviewed Nurses Notes Reviewed: Yes Source History Provided: Patient and Other (acute care clinical nurse specialist.) Mode of Arrival Mode of Arrival: EMS Duration Duration: Days Context Onset:: At Rest PE Risk Factors:: Immobilization History of:: None Prehospital Care:: None Modifying Factors Worsens:: Exertion Improves:: Rest Associated Signs and Symptoms Associated Signs and Symptoms: Fever, Cough and Chest Pain If Chest Pain Quality: Pleuritic Location: Substernal If Cough Cough: Productive and Yellow PMH PMH Past Medical History: CVA and Seizures Past Surgical History: Yes Surgical History: Cholecystectomy and Other Family History Family Medical History: Coronary Artery Disease and Hypertension Social History Do you use any recreational Drugs:: No ROS Review of Systems Constitutional: See HPI, Chills, Fever, Malaise, Weakness and Fatigue Eyes: No Symptoms Reported and See HPI ENTM: See HPI and Nose Congestion; negative Ear Pain, Nose Discharge and Throat Pain Respiratoy: See HPI, Moist Cough, Short of Breath and Wheezing Cardiovascular: See HPI, Chest Pain (PLEURITIC CHEST PAIN.) and Edema Gastrointestinal/Abdominal: No Symptoms Reported and See HPI; negative Diarrhea and Vomiting Genitourinary: No Symptoms Reported and See HPI; negative Dysuria and Hematuria Neurological: See HPI, Headache and Weakness; negative Dizziness Musculoskeletal: See HPI, Back Pain and Muscle Pain Integumentary: See HPI and Dryness; negative Change in Color, Rash and Juandice Hematologic/Lymphatic: No Symptoms Reported and See HPI; negative Easy Bruising and Swollen Glands Endocrine: See HPI, Increased Urine and Decreased Appetite; negative Increased Thirst Psychiatric: No Symptoms Reported and See HPI All Other Systems: Reviewed and Negative PE Vital Signs Vitals: Temperature 97.6 F Pulse Rate [Brachial] 108 Pulse Rate 77 Respiratory Rate 18 Blood Pressure [Right Arm] 98/55 Blood Pressure [Left Arm] 147/70 Blood Pressure 97/52 O2 Sat by Pulse Oximetry 94 General Limitations: No Limitations General Appearance: Alert and In Distress Head Head Exam: Normal Inspection and Atraumatic Eyes Eye exam: Normal Appearance, PERRL and EOMI; negative Scleral Icterus and Conjunctival Injection ENT ENT Exam: Normal Exam, Normal Oropharynx, Normal External Ear Exam and TM's Normal Bilaterally Neck Neck Exam: Normal Inspection and Trachea Midline; negative Tenderness and Lymphadenopathy Chest Chest Inspection: Normal Inspection and Symmetric Chest Wall Rise; negative Tenderness Respiratory Respiratory Exam: Normal Lung Sounds Bilat and Respiratory Distress; negative Accessory Muscle Use and Chest Wall Tenderness Respiratory Exam: Bilateral: Wheezing and Bilateral: Rhonchi and Lower: Wheezing and Lower: Rhonchi Cardiovascular Cardiovascular Exam: Regular Rate, Normal Rhythm, Normal Heart Sounds and +S3; negative Systolic Murmur and Diastolic Murmur Abdominal Exam Abdominal Exam: Normal Inspection, Normal Bowel Sounds and Soft; negative Tenderness Extremities Extremities Exam: Normal Capillary Refill and Edema; negative Tenderness and Calf Tenderness Back Back Exam: Normal Inspection; negative (R) CVA Tenderness and (L) CVA Tenderness Neurologic Neurological Exam: Alert and Oriented X3; negative Motor Sensory Deficit Psychiatric Psychiatric Exam: Normal Affect and Normal Mood Skin Skin Exam: Warm, Dry, Intact and Normal Color MDM Additional Information Obtained Additional Information Obtained From: Old Records and Slp Differential Diagnosis Differential Diagnosis: Bronchitis, CHF, COPD, Dysrhythmia, Hyponatremia, Mycardial Infarction, Pneumonia, Pneumothorax, Respiratory Insufficiency and URI COURSE Treatment Treatment: SEE ORDERS. ZOSYN 3.375MG IVPB. IN ER. Consultation Consultation Comments: DISCUSS PATIENT WITH DR MERA AND WILL ADMIT PATIENT. ROR Labs Reviewed Laboratory Results Reviewed?: Yes Result Diagrams: 04/09/20 04:18 04/09/20 12:38 Laboratory: 04/05/20 16:52 Blood Blood Culture - Preliminary 04/05/20 16:40 Blood Blood Culture - Preliminary WBC 12.0 X10^3/uL (3.6-10.0) H 04/07/20 06:10 RBC 3.47 X10^6/uL (3.5-5.4) L 04/07/20 06:10 Hgb 9.0 g/dL (12.0-16.0) L 04/07/20 06:10 Hct 28.1 % (36.0-47.0) L 04/07/20 06:10 MCV 81.0 fL (80.0-100.0) 04/07/20 06:10 MCH 26.0 pg (27.0-34.0) L 04/07/20 06:10 MCHC 32.1 g/dL (33.0-35.0) L 04/07/20 06:10 RDW 16.2 % (11.6-16.5) 04/07/20 06:10 Plt Count 772 X10^3/uL (150.0-450.0) H 04/07/20 06:10 Plt Count Comment Increased (ADEQUATE) A 04/07/20 06:10 MPV 7.3 fL (7.4-11.0) L 04/07/20 06:10 Neut % (Auto) 64.8 % (42.0-75.0) 04/07/20 06:10 Lymph % (Auto) 27.9 % (21.0-51.0) 04/07/20 06:10 [place] % (Auto) 6.4 % (0.0-13.0) 04/07/20 06:10 Eos % (Auto) 0.4 % (0.9-2.9) L 04/07/20 06:10 Baso % (Auto) 0.5 % (0.2-1.0) 04/07/20 06:10 Neut # (Auto) 7.8 x10^3/uL (2.2-4.8) H 04/07/20 06:10 Lymph # (Auto) 3.3 X10^3/uL (1.3-2.9) H 04/07/20 06:10 [place] # (Auto) 0.8 x10^3/uL (0.3-0.8) 04/07/20 06:10 Eos # (Auto) 0.0 x10^3/uL (0.0-0.2) 04/07/20 06:10 Baso # (Auto) 0.1 X10^3/uL (0.0-0.1) 04/07/20 06:10 Absolute Nucleated RBC 0.1 /100WBC 04/07/20 06:10 Total Counted 100 04/07/20 06:10 Neutrophils % (Manual) 70 % (39-76) 04/07/20 06:10 Band Neutrophils % 1 % (0-10) 04/05/20 16:40 Lymphocytes % (Manual) 24 % (13-43) 04/07/20 06:10 Monocytes % (Manual) 6 % (4-9) 04/07/20 06:10 Eosinophils % (Manual) 2 % (0-6) 04/05/20 16:40 Basophils % (Manual) 1 % (0-1) 04/05/20 16:40 Myelocytes % 1 04/05/20 16:40 Promyelocytes % 2 04/05/20 16:40 Plt Morphology Comment Normal (NORMAL) 04/07/20 06:10 RBC Morphology Abnormal (NORMAL) A 04/07/20 06:10 Hypochromasia Slight A 04/07/20 06:10 Schistocytes 04/05/20 16:40 Sodium 141 mmol/L (136-145) 04/07/20 06:10 Corrected Sodium TNP 04/07/20 06:10 Potassium 2.9 mmol/L (3.5-5.1) L* 04/07/20 06:10 Chloride 104 mmol/L (98-107) 04/07/20 06:10 Carbon Dioxide 27.5 mmol/L (21-32) 04/07/20 06:10 BUN 12 mg/dL (7-18) 04/07/20 06:10 Creatinine 0.78 mg/dL (0.55-1.02) 04/07/20 06:10 Est GFR (MDRD) Af Amer > 60 (>60) 04/07/20 06:10 Est GFR (MDRD) Non-Af > 60 (>60) 04/07/20 06:10 Glucose 98 mg/dL (65-99) 04/07/20 06:10 Lactic Acid 2.8 mmol/L (0.4-2.0) H 04/05/20 16:52 Calcium 7.2 mg/dL (8.5-10.1) L 04/07/20 06:10 Corrected Calcium 8.6 mg/dL (8.5-10.1) 04/07/20 06:10 Magnesium 0.4 mg/dL (1.7-2.9) L 04/07/20 06:10 Ferritin 45 ng/mL (8-252) 04/05/20 16:52 Total Bilirubin 0.30 mg/dL (0.2-1.0) 04/07/20 06:10 AST 16 Units/L (15-37) 04/07/20 06:10 ALT 9 Units/L (12-78) L 04/07/20 06:10 Alkaline Phosphatase 133 Units/L (46-116) H 04/07/20 06:10 Lactate Dehydrogenase 404 Units/L (81-234) H 04/05/20 16:52 C-Reactive Protein 34.10 mg/L (0-3.0) H 04/05/20 16:52 B-Natriuretic Peptide 274 pg/mL (0-79) H 04/05/20 16:40 Total Protein 5.8 g/dL (6.4-8.2) L 04/07/20 06:10 Albumin 2.3 g/dL (3.4-5.0) L 04/07/20 06:10 Globulin 3.5 g/dL (2.5-4.5) 04/07/20 06:10 Albumin/Globulin Ratio 0.7 Ratio (1.1-2.1) L 04/07/20 06:10 SARS-CoV-2 (PCR) Negative (NEGATIVE) 04/05/20 20:22 Other Results Comments: FINDINGS The trachea is midline. Stable borderline heart and mild prominence of the aortic knob. There are some patchy atelectasis in the right base unchanged since prior. There is also a more focal patchy radiopacity in the left base with partial effacement of the diaphragm. No pneumothorax or effusions. There are again seen some 2nd to 5th left lateral rib fractures that appears subacute with some healing IMPRESSION Persistent left lower lobe patchy radiopacity atelectasis versus pneumonia XRAY XRAY Interpreted by: Radiologist (REPORT DISCUSSED WITH DR. MERA. HE WILL ADMIT PATIENT.) and Self Opioid Opioid Risk Tool Age (Davion box if 16-45): No History of Preadolescent Sexual Abuse: No Total: 0 Total Score Risk Category: Low Risk Copyright: Kermit CARMONA predicting aberrant behaviors Diagnosis Discharge Problem: Pneumonia Qualifiers: Pneumonia type: due to unspecified organism Laterality: left Lung location: lower lobe of lung Qualified Code(s): J18.9 - Pneumonia, unspecified organism CHF (congestive heart failure) Qualifiers: Heart failure type: combined systolic and diastolic Heart failure chronicity: acute on chronic Qualified Code(s): I50.43 - Acute on chronic combined systolic (congestive) and diastolic (congestive) heart failure Instructions Instructions: Upper Respiratory Infection, Adult, [id number] Type 2 Diabetes Mellitus, Self Care, Adult, [id number] Hypertension, Osnj-[id number] Gastroesophageal Reflux Disease, Adult, [id number] Heart Failure Exacerbation Community-Acquired Pneumonia, Adult Forms: Excuse From Work or School Excuse From Work
--- NOTE | 2020-04-05 17:01 | RAD ---
HISTORYCHILLS, COUGH, AND SLIGHT SOBSTUDYCHEST x-ray, 1 VIEWCOMPARISONX-ray 03/06/2020FINDINGSMinimal linear atelectasis in the right middle lobe region. Density is seen in the left lung base that could be atelectasis or pneumonia. It appears improved from prior study. Heart may be mildly enlarged. No pulmonary venous congestion is seen. Calcification is seen of the aortic arch. No pleural effusion is seen. No pneumothorax is seen. Old unhealed fracture of the posterior aspect of the right 8th rib is seen.IMPRESSIONImproving left retrocardiac density could be atelectasis or pneumonia. Mild linear atelectasis is seen in the right lower lung.Electronically signed by: Jeff Murphy (Apr 05, 2020 16:59:52)
[2020-04-05 17:36] LABS: BASOPHILS # (AUTO) 0.1 X10^3/uL (0.0-0.1); BASOPHILS % (AUTO) 0.8 % (0.2-1.0); EOSINOPHILS # (AUTO) 0.1 x10^3/uL (0.0-0.2); EOSINOPHILS % (AUTO) 0.6 % (0.9-2.9); HEMATOCRIT 32.4 % (36.0-47.0); HEMOGLOBIN 10.6 g/dL (12.0-16.0); LYMPHOCYTES # (AUTO) 2.3 X10^3/uL (1.3-2.9); LYMPHOCYTES % (AUTO) 15.2 % (21.0-51.0); MEAN CORPUSCULAR HEMOGLOBIN 26.8 pg (27.0-34.0); MEAN CORPUSCULAR HGB CONC 32.6 g/dL (33.0-35.0); MEAN CORPUSCULAR VOLUME 82.2 fL (80.0-100.0); MONOCYTES # (AUTO) 0.9 x10^3/uL (0.3-0.8); MONOCYTES % (AUTO) 6.2 % (0.0-13.0); NEUTROPHILS # (AUTO) 11.8 x10^3/uL (2.2-4.8); NEUTROPHILS % (AUTO) 77.2 % (42.0-75.0); PLATELET COUNT 750 X10^3/uL (150.0-450.0); RED BLOOD COUNT 3.94 X10^6/uL (3.5-5.4); RED CELL DISTRIBUTION WIDTH 16.2 % (11.6-16.5); WHITE BLOOD COUNT 15.3 X10^3/uL (3.6-10.0)
[2020-04-05 17:38] LABS: ALANINE AMINOTRANSFERASE 11 Units/L (12-78); ALBUMIN 2.8 g/dL (3.4-5.0); ALKALINE PHOSPHATASE 171 Units/L (46-116); ASPARTATE AMINO TRANSFERASE 29 Units/L (15-37); BLOOD UREA NITROGEN 25 mg/dL (7-18); CALCIUM 7.8 mg/dL (8.5-10.1); CARBON DIOXIDE 26.9 mmol/L (21-32); CHLORIDE 98 mmol/L (98-107); COR CA(FOR HYPOALB) 8.8 mg/dL (8.5-10.1); CREATININE 1.33 mg/dL (0.55-1.02); LACTATE DEHYDROGENASE 404 Units/L (81-234); SODIUM 135 mmol/L (136-145); TOTAL PROTEIN 6.8 g/dL (6.4-8.2); eGFR NON BLACK RACES 40 (>60)
[2020-04-05 17:46] LABS: LACTIC ACID 2.8 mmol/L (0.4-2.0)
[2020-04-05 18:19] LABS: BAND NEUTROPHILS % 1 % (0-10); BASOPHILS % (MANUAL) 1 % (0-1); HYPOCHROMASIA SLIGHT; PLATELET MORPHOLOGY COMMENT NORMAL (NORMAL); PROMYELOCYTES % 2
[2020-04-05 18:20] LABS: MYELOCYTES % 1
[2020-04-05] MEDS ORDERED: ZOSYN VIAL 3.375 GRAMS 3.375 G in NS 100 ML IV + SPIKE MINIBAG* 100 ML IV ONE (19:45)
[2020-04-05] MEDS ORDERED: ZOSYN VIAL 3.375 GRAMS IV ONE ×2 (19:58→23:19)
[2020-04-05] MEDS ORDERED: NS 100 ML IV + SPIKE MINIBAG* 100 ML IV ONE ×2 (19:58→23:19)
[2020-04-05] MEDS ORDERED: NS 1000 ML 1,000 ML ONE (20:01)
[2020-04-05] MEDS ORDERED: ZOFRAN INJ 4 MG VIAL IVP ONE (20:09)
[2020-04-05] MEDS ORDERED: MORPHINE SULFATE INJ 2 MG INJ IVP ONE (20:09)
[2020-04-05] MEDS: NS 1000 ML 1,000 ML IV SCH (20:10)
[2020-04-05] MEDS ORDERED: MORPHINE SULFATE INJ 2 MG INJ ONE (20:41)
[2020-04-05] MEDS ORDERED: ZOFRAN INJ 4 MG VIAL ONE (20:41)
[2020-04-05] MEDS ORDERED: TUSSIONEX PENNKINETIC SUSP PO PRN (22:53)
[2020-04-06 00:02] VITALS: BMI 21.9
[2020-04-06] MEDS: ZOSYN VIAL 3.375 GRAMS 3.375 G in NS 100 ML IV + SPIKE MINIBAG* 100 ML IV SCH ×3 (05:15→22:15)
[2020-04-06] MEDS: DUONEB 0.5 MG/3 MG (3 mL) NEB SCH ×3 (06:00→21:05)
[2020-04-06 06:15] LABS: BASOPHILS # (AUTO) 0.1 X10^3/uL (0.0-0.1); BASOPHILS % (AUTO) 0.8 % (0.2-1.0); EOSINOPHILS # (AUTO) 0.1 x10^3/uL (0.0-0.2); EOSINOPHILS % (AUTO) 0.9 % (0.9-2.9); HEMATOCRIT 27.5 % (36.0-47.0); HEMOGLOBIN 9.1 g/dL (12.0-16.0); LYMPHOCYTES # (AUTO) 2.1 X10^3/uL (1.3-2.9); LYMPHOCYTES % (AUTO) 16.1 % (21.0-51.0); MEAN CORPUSCULAR HEMOGLOBIN 27.2 pg (27.0-34.0); MEAN CORPUSCULAR HGB CONC 33.2 g/dL (33.0-35.0); MONOCYTES # (AUTO) 0.8 x10^3/uL (0.3-0.8); MONOCYTES % (AUTO) 6.2 % (0.0-13.0); NEUTROPHILS # (AUTO) 10.1 x10^3/uL (2.2-4.8); PLATELET COUNT 684 X10^3/uL (150.0-450.0); RED BLOOD COUNT 3.35 X10^6/uL (3.5-5.4); WHITE BLOOD COUNT 13.3 X10^3/uL (3.6-10.0)
[2020-04-06 06:22] LABS: ALANINE AMINOTRANSFERASE 9 Units/L (12-78); ALBUMIN 2.3 g/dL (3.4-5.0); ALKALINE PHOSPHATASE 141 Units/L (46-116); ASPARTATE AMINO TRANSFERASE 16 Units/L (15-37); BLOOD UREA NITROGEN 22 mg/dL (7-18); CALCIUM 7.2 mg/dL (8.5-10.1); CARBON DIOXIDE 26.2 mmol/L (21-32); CHLORIDE 103 mmol/L (98-107); COR CA(FOR HYPOALB) 8.6 mg/dL (8.5-10.1); CREATININE 1.11 mg/dL (0.55-1.02); SODIUM 138 mmol/L (136-145); TOTAL PROTEIN 5.7 g/dL (6.4-8.2); eGFR NON BLACK RACES 49 (>60)
[2020-04-06 06:45] LABS: PLATELET MORPHOLOGY COMMENT NORMAL (NORMAL)
[2020-04-06] MEDS ORDERED: ROCEPHIN VIAL 1 GRAM 1 G in NS 100 ML IV + SPIKE MINIBAG* 100 ML IV SCH (09:00)
[2020-04-06] MEDS: ROBITUSSIN DM PO SCH ×4 (09:22→20:44)
[2020-04-06] MEDS: VSL#3 PO SCH (09:23)
--- NOTE | 2020-04-06 16:25 | DR.H&P ---
H&P - History & Physical for Day of: H&P Date: 04/05/20 - Chief Complaint Chief Complaint: SOB, LEG SWELLING - History of Present Illness History of Present Illness: PT IS 89 WF ER ADMISSION WITH CO INCREASED SOB AND LOWER LEG SWELLING. PT REPORTS SHE HAD BEEN ON LONG CAR RIDE PRIOR TO LOWER LEG SWELLING. PT DENIES ANY FEVER OR KNOWN COVID EXPOSURE. MS HILL IS A PT OF DR [facility] WITH HISTORY OF CHF, HTN, ANEMIA, OA, GERD. PT ADMITTED FROM ER FOR TREATMENT OF ACUTE CHF EXACERBATION AND PNEUMONIA. - Past Medical History Past Medical History: Anxiety, Arthritis, CHF, CVA, Hypertension, Seizures Additional Medical History: Hearing and Vision deficit, Urinary Tract Infections, Muscle Weakness, Cancer of lung- right lower lobe - Past Surgical History Surgical History: Cholecystectomy, Other Additional Surgical History: Right Lower Lung Lobectomy 2012, ORIF of left femur - Family History Family Medical History: Coronary Artery Disease, Hypertension - Social History Does patient currently use any type of tobacco product: No Have you used tobacco products in the last 12 months: No Type of Tobacco Use: None Does any household member use tobacco: No Alcohol Use: None Drug Use: None - Medications Home Medications: ciprofloxacin [From Cipro] Allergy (Verified 05/25/17 18:00) codeine Allergy (Verified 05/25/17 18:00) metronidazole [From Flagyl] Allergy (Verified 12/12/19 09:12) - Review of Systems Constitutional: Weakness. denies: Fever Eyes: No Symptoms Reported ENT: No Symptoms Reported Respiratory: Shortness of Breath Cardiovascular: Edema Gastrointestinal: Nausea Genitourinary: No Symptoms Reported Musculoskeletal: Back Pain Skin: No Symptoms Reported Neurological: No Symptoms Reported - Physical Exam Vital Signs: Temperature 98.2 F Pulse Rate [Brachial] 115 Pulse Rate 80 Respiratory Rate 20 Blood Pressure [Right Arm] 113/57 Blood Pressure [Left Arm] 147/70 Blood Pressure 97/52 O2 Sat by Pulse Oximetry 97 Oriented: Normal Eyes: Normal, Diplopia Nose: Normal Throat: Normal Respiratory: RLL Diminished, LLL Diminished Cardiovascular: Normal, Murmur, Edema : Normal Auscultation: Bowel Sounds: Normal Palpation: Normal Tenderness: Normal Skin: Decreased Turgur Musculoskeletal: Back:Thoracic, Back:Lumbar Psychiatric: Anxiety Affect: Anxious Speech Pattern: Clear, Appropriate - Assessment/Plan (1) Pneumonia Status: Acute Plan: ADMIT, PNEUMONIA PROTOCOL. SUPPLEMENTAL O2, IV ATBX, RESP THERAPY. SPUTUM CULTURE, VERIFY HOME MEDICATION. STRICT I& OS (2) CHF (congestive heart failure) Status: Chronic (3) Diabetes mellitus, type 2 Status: Chronic (4) Essential hypertension Status: Chronic (5) GERD (gastroesophageal reflux disease) Status: Chronic (6) History of CVA (cerebrovascular accident) Status: Chronic (7) History of lung cancer Status: Chronic (8) Seizure disorder Status: Chronic - Allergies Allergies/Adverse Reactions: Allergies Allergy/AdvReac Type Severity Reaction Status Date / Time ciprofloxacin [From Cipro] Allergy Verified 05/25/17 18:00 codeine Allergy Verified 05/25/17 18:00 metronidazole [From Flagyl] Allergy Verified 12/12/19 09:12
--- NOTE | 2020-04-06 16:32 | PCM.PROG ---
Progress Note - Progress Note for Day of Date of Exam: 04/06/20 - Subjective Subjective: PT IS 89 WF, PT OF DR EVANS'S PP, ADMITTED WITH CO SOB, PNEUMONIA AND CHF EXACERBATION. PT WAS STARTED ON PNEUMONIA PROTOCOL WITH IV ZOSYN. BLOOD CULTURES OBTAINED, SPUTUM UNCOLLECTED AT THIS TIME. PTS HOME MEDICATION HAS BEEN RESUMED. PT HAS BEEN AFEBRILE AND RESPORTS MINIMAL SPUTUM PRODUCTION. PT HAS IMPROVING LOWER LEG SWELLING AND WBC AT 13.3 THIS AM. PT HAD NEGATIVE COVID IN ER PRIOR TO ADMISSION. - Past Medical Family Social History Past Med/Fam/Surg Hx: No changes since H&P Allergies: Allergies ciprofloxacin [From Cipro] Allergy (Verified 05/25/17 18:00) codeine Allergy (Verified 05/25/17 18:00) metronidazole [From Flagyl] Allergy (Verified 12/12/19 09:12) - Review of Systems ROS: No change since H&P - Vital Signs and I&O's Vital Signs: Temperature 98.2 F Pulse Rate [Brachial] 115 Pulse Rate 80 Respiratory Rate 20 Blood Pressure [Right Arm] 113/57 Blood Pressure [Left Arm] 147/70 Blood Pressure 97/52 O2 Sat by Pulse Oximetry 97 Intake and Output: Intake & Output 04/04/20 04/05/20 04/06/20 04/07/20 11:59 11:59 11:59 11:59 Intake Total 50 / 50 300 / 300 Balance 50 / 50 300 / 300 - Physical Exam Oriented: Normal Eyes: Normal, Diplopia Nose: Normal Throat: Normal Respiratory: Diminished Cardiovascular: Normal, Murmur, Edema : Normal Auscultation: Bowel Sounds: Normal Tenderness: Normal Skin: Decreased Turgur Musculoskeletal: Back:Thoracic, Back:Lumbar Psychiatric: Anxiety Affect: Anxious Speech Pattern: Clear, Appropriate - Laboratory and Diagnostics Result Diagrams: 04/06/20 05:16 04/06/20 05:16 Labs: Laboratory WBC 13.3 X10^3/uL (3.6-10.0) H 04/06/20 05:16 RBC 3.35 X10^6/uL (3.5-5.4) L 04/06/20 05:16 Hgb 9.1 g/dL (12.0-16.0) L 04/06/20 05:16 Hct 27.5 % (36.0-47.0) L 04/06/20 05:16 MCV 82.0 fL (80.0-100.0) 04/06/20 05:16 MCH 27.2 pg (27.0-34.0) 04/06/20 05:16 MCHC 33.2 g/dL (33.0-35.0) 04/06/20 05:16 RDW 16.0 % (11.6-16.5) 04/06/20 05:16 Plt Count 684 X10^3/uL (150.0-450.0) H 04/06/20 05:16 Plt Count Comment Increased (ADEQUATE) A 04/06/20 05:16 MPV 8.0 fL (7.4-11.0) 04/06/20 05:16 Neut % (Auto) 76.0 % (42.0-75.0) H 04/06/20 05:16 Lymph % (Auto) 16.1 % (21.0-51.0) L 04/06/20 05:16 [place] % (Auto) 6.2 % (0.0-13.0) 04/06/20 05:16 Eos % (Auto) 0.9 % (0.9-2.9) 04/06/20 05:16 Baso % (Auto) 0.8 % (0.2-1.0) 04/06/20 05:16 Neut # (Auto) 10.1 x10^3/uL (2.2-4.8) H 04/06/20 05:16 Lymph # (Auto) 2.1 X10^3/uL (1.3-2.9) 04/06/20 05:16 [place] # (Auto) 0.8 x10^3/uL (0.3-0.8) 04/06/20 05:16 Eos # (Auto) 0.1 x10^3/uL (0.0-0.2) 04/06/20 05:16 Baso # (Auto) 0.1 X10^3/uL (0.0-0.1) 04/06/20 05:16 Absolute Nucleated RBC 0.1 /100WBC 04/06/20 05:16 Total Counted 100 04/06/20 05:16 Neutrophils % (Manual) 83 % (39-76) H 04/06/20 05:16 Band Neutrophils % 1 % (0-10) 04/05/20 16:40 Lymphocytes % (Manual) 13 % (13-43) 04/06/20 05:16 Monocytes % (Manual) 4 % (4-9) 04/06/20 05:16 Eosinophils % (Manual) 2 % (0-6) 04/05/20 16:40 Basophils % (Manual) 1 % (0-1) 04/05/20 16:40 Myelocytes % 1 04/05/20 16:40 Promyelocytes % 2 04/05/20 16:40 Plt Morphology Comment Normal (NORMAL) 04/06/20 05:16 RBC Morphology Normal (NORMAL) 04/06/20 05:16 Hypochromasia Slight A 04/05/20 16:40 Schistocytes 04/05/20 16:40 Sodium 138 mmol/L (136-145) 04/06/20 05:16 Corrected Sodium TNP 04/06/20 05:16 Potassium 3.5 mmol/L (3.5-5.1) 04/06/20 05:16 Chloride 103 mmol/L (98-107) 04/06/20 05:16 Carbon Dioxide 26.2 mmol/L (21-32) 04/06/20 05:16 BUN 22 mg/dL (7-18) H 04/06/20 05:16 Creatinine 1.11 mg/dL (0.55-1.02) H 04/06/20 05:16 Est GFR (MDRD) Af Amer 60 (>60) 04/06/20 05:16 Est GFR (MDRD) Non-Af 49 (>60) L 04/06/20 05:16 Glucose 97 mg/dL (65-99) 04/06/20 05:16 Lactic Acid 2.8 mmol/L (0.4-2.0) H 04/05/20 16:52 Calcium 7.2 mg/dL (8.5-10.1) L 04/06/20 05:16 Corrected Calcium 8.6 mg/dL (8.5-10.1) 04/06/20 05:16 Ferritin 45 ng/mL (8-252) 04/05/20 16:52 Total Bilirubin 0.30 mg/dL (0.2-1.0) 04/06/20 05:16 AST 16 Units/L (15-37) 04/06/20 05:16 ALT 9 Units/L (12-78) L 04/06/20 05:16 Alkaline Phosphatase 141 Units/L (46-116) H 04/06/20 05:16 Lactate Dehydrogenase 404 Units/L (81-234) H 04/05/20 16:52 C-Reactive Protein 34.10 mg/L (0-3.0) H 04/05/20 16:52 B-Natriuretic Peptide 274 pg/mL (0-79) H 04/05/20 16:40 Total Protein 5.7 g/dL (6.4-8.2) L 04/06/20 05:16 Albumin 2.3 g/dL (3.4-5.0) L 04/06/20 05:16 Globulin 3.4 g/dL (2.5-4.5) 04/06/20 05:16 Albumin/Globulin Ratio 0.7 Ratio (1.1-2.1) L 04/06/20 05:16 SARS-CoV-2 (PCR) Negative (NEGATIVE) 04/05/20 20:22 - Plan (1) Pneumonia Status: Acute Plan: PNEUMONIA PROTOCOL. SUPPLEMENTAL O2, IV ATBX, RESP THERAPY. SPUTUM CULTURE, VERIFY HOME MEDICATION. STRICT I& OS (2) CHF (congestive heart failure) Status: Chronic (3) Diabetes mellitus, type 2 Status: Chronic (4) Essential hypertension Status: Chronic (5) GERD (gastroesophageal reflux disease) Status: Chronic (6) History of CVA (cerebrovascular accident) Status: Chronic (7) History of lung cancer Status: Chronic (8) Seizure disorder Status: Chronic
[2020-04-06] MEDS: LOVENOX INJ 30 MG SYR SC SCH (20:42)
[2020-04-07] MEDS: DUONEB 0.5 MG/3 MG (3 mL) NEB SCH ×4 (05:35→21:00)
[2020-04-07] MEDS: ZOSYN VIAL 3.375 GRAMS 3.375 G in NS 100 ML IV + SPIKE MINIBAG* 100 ML IV SCH ×3 (05:46→21:07)
[2020-04-07 07:12] LABS: BASOPHILS # (AUTO) 0.1 X10^3/uL (0.0-0.1); BASOPHILS % (AUTO) 0.5 % (0.2-1.0); EOSINOPHILS % (AUTO) 0.4 % (0.9-2.9); HEMATOCRIT 28.1 % (36.0-47.0); LYMPHOCYTES # (AUTO) 3.3 X10^3/uL (1.3-2.9); LYMPHOCYTES % (AUTO) 27.9 % (21.0-51.0); MEAN CORPUSCULAR HGB CONC 32.1 g/dL (33.0-35.0); MEAN PLATELET VOLUME 7.3 fL (7.4-11.0); MONOCYTES # (AUTO) 0.8 x10^3/uL (0.3-0.8); MONOCYTES % (AUTO) 6.4 % (0.0-13.0); NEUTROPHILS # (AUTO) 7.8 x10^3/uL (2.2-4.8); NEUTROPHILS % (AUTO) 64.8 % (42.0-75.0); PLATELET COUNT 772 X10^3/uL (150.0-450.0); RED BLOOD COUNT 3.47 X10^6/uL (3.5-5.4); RED CELL DISTRIBUTION WIDTH 16.2 % (11.6-16.5)
[2020-04-07 07:18] LABS: ALANINE AMINOTRANSFERASE 9 Units/L (12-78); ALBUMIN 2.3 g/dL (3.4-5.0); ALKALINE PHOSPHATASE 133 Units/L (46-116); ASPARTATE AMINO TRANSFERASE 16 Units/L (15-37); BLOOD UREA NITROGEN 12 mg/dL (7-18); CALCIUM 7.2 mg/dL (8.5-10.1); CARBON DIOXIDE 27.5 mmol/L (21-32); CHLORIDE 104 mmol/L (98-107); COR CA(FOR HYPOALB) 8.6 mg/dL (8.5-10.1); CREATININE 0.78 mg/dL (0.55-1.02); SODIUM 141 mmol/L (136-145); TOTAL PROTEIN 5.8 g/dL (6.4-8.2); eGFR NON BLACK RACES > 60 (>60)
--- NOTE | 2020-04-07 07:20 | RAD ---
HISTORYPneumonia CHFSTUDYAP [id number]/02/2020FINDINGSStable heart size with act attic aorta. Linear interstitial densities again noted in the lower lobes with mild parenchymal distortion. There is apparent interval improvement in this process in the left base since prior. The upper lobes remain clear. There is no evidence for new consolidation, pneumothorax or developing pleural effusion.IMPRESSIONSlight improvement in the left lower lobe infiltrate/atelectasis. No change or new abnormality otherwise since 2 days prior.Electronically signed by: ESE GUZMAN (Apr 07, 2020 07:18:27)
[2020-04-07 07:39] LABS: PLATELET MORPHOLOGY COMMENT NORMAL (NORMAL)
[2020-04-07 07:40] LABS: HYPOCHROMASIA SLIGHT
[2020-04-07] MEDS ORDERED: K-RIDER 10 MEQ/NS 100 ML 10 MEQ/100 ML BAG IV PRN (08:36)
[2020-04-07] MEDS ORDERED: POTASSIUM CHLORIDE LIQ 20 MEQ UDC PO PRN (08:36)
[2020-04-07] MEDS ORDERED: MICRO K EXTEN CAP 10 MEQ PO PRN (08:36)
[2020-04-07] MEDS ORDERED: POTASSIUM CHL 40 MEQ/NS 0.45% 500 ML IV PRN (08:36)
[2020-04-07] MEDS ORDERED: POTASSIUM CHL 60 MEQ/NS 0.45% 500 ML IV PRN (08:36)
[2020-04-07] MEDS: LOVENOX INJ 30 MG SYR SC SCH (09:17)
[2020-04-07] MEDS: VSL#3 PO SCH (09:17)
[2020-04-07] MEDS: ROBITUSSIN DM PO SCH ×4 (09:17→21:06)
[2020-04-07] MEDS: KLOR-CON PO PRN (09:31)
[2020-04-07] MEDS: FLONASE NASAL SPRAY ENOSTRIL SCH ×2 (13:54→21:15)
[2020-04-07 14:05] LABS: BILIRUBIN,URINE NEGATIVE (NEGATIVE); BLOOD/HEMOGLOBIN,URINE NEGATIVE (NEGATIVE); GLUCOSE, URINE NEGATIVE (NEGATIVE); KETONES,URINE NEGATIVE (NEGATIVE); LEUKOCYTE ESTERASE ,URINE NEGATIVE (NEGATIVE); NITRITES,URINE NEGATIVE (NEGATIVE); PROTEIN,URINE NEGATIVE (NEGATIVE); UROBILINOGEN,URINE NORMAL (NORMAL)
[2020-04-07 14:06] LABS: APPEARANCE,URINE CLEAR (CLEAR); COLOR,URINE YELLOW (YELLOW)
[2020-04-07] MEDS: K-DUR TAB 20 MEQ PO PRN (15:19)
[2020-04-07] MEDS ORDERED: ZOSYN VIAL 3.375 GRAMS IV ONE (20:04)
[2020-04-07] MEDS ORDERED: NS 100 ML IV + SPIKE MINIBAG* 100 ML IV ONE (20:09)
[2020-04-07] MEDS: NS 1000 ML 1,000 ML IV SCH (23:00)
[2020-04-08] MEDS: DUONEB 0.5 MG/3 MG (3 mL) NEB SCH ×4 (06:03→21:25)
[2020-04-08] MEDS: ZOSYN VIAL 3.375 GRAMS 3.375 G in NS 100 ML IV + SPIKE MINIBAG* 100 ML IV SCH ×3 (06:09→22:13)
[2020-04-08 06:15] LABS: BASOPHILS # (AUTO) 0.1 X10^3/uL (0.0-0.1); BASOPHILS % (AUTO) 0.6 % (0.2-1.0); EOSINOPHILS # (AUTO) 0.2 x10^3/uL (0.0-0.2); EOSINOPHILS % (AUTO) 1.8 % (0.9-2.9); HEMATOCRIT 28.8 % (36.0-47.0); HEMOGLOBIN 9.3 g/dL (12.0-16.0); LYMPHOCYTES # (AUTO) 1.7 X10^3/uL (1.3-2.9); LYMPHOCYTES % (AUTO) 19.3 % (21.0-51.0); MEAN CORPUSCULAR HEMOGLOBIN 26.2 pg (27.0-34.0); MEAN CORPUSCULAR HGB CONC 32.3 g/dL (33.0-35.0); MEAN CORPUSCULAR VOLUME 81.2 fL (80.0-100.0); MEAN PLATELET VOLUME 7.2 fL (7.4-11.0); MONOCYTES # (AUTO) 0.7 x10^3/uL (0.3-0.8); MONOCYTES % (AUTO) 7.3 % (0.0-13.0); NEUTROPHILS # (AUTO) 6.4 x10^3/uL (2.2-4.8); PLATELET COUNT 808 X10^3/uL (150.0-450.0); RED BLOOD COUNT 3.54 X10^6/uL (3.5-5.4); RED CELL DISTRIBUTION WIDTH 16.5 % (11.6-16.5); WHITE BLOOD COUNT 8.9 X10^3/uL (3.6-10.0)
[2020-04-08 06:26] LABS: ALANINE AMINOTRANSFERASE 11 Units/L (12-78); ALBUMIN 2.4 g/dL (3.4-5.0); ALKALINE PHOSPHATASE 129 Units/L (46-116); ASPARTATE AMINO TRANSFERASE 15 Units/L (15-37); BLOOD UREA NITROGEN 8 mg/dL (7-18); CARBON DIOXIDE 27.2 mmol/L (21-32); CHLORIDE 104 mmol/L (98-107); COR CA(FOR HYPOALB) 8.3 mg/dL (8.5-10.1); CREATININE 0.76 mg/dL (0.55-1.02); SODIUM 141 mmol/L (136-145); TOTAL PROTEIN 5.9 g/dL (6.4-8.2); eGFR NON BLACK RACES > 60 (>60)
[2020-04-08 06:29] LABS: ANISOCYTOSIS SLIGHT; BAND NEUTROPHILS % 2 % (0-10); HYPOCHROMASIA SLIGHT; PLATELET MORPHOLOGY COMMENT NORMAL (NORMAL)
[2020-04-08] MEDS: K-DUR TAB 20 MEQ PO PRN (06:43)
[2020-04-08] MEDS: LOVENOX INJ 30 MG SYR SC SCH (09:06)
[2020-04-08] MEDS: ROBITUSSIN DM PO SCH ×4 (09:07→22:10)
[2020-04-08] MEDS: VSL#3 PO SCH (09:08)
[2020-04-08] MEDS: FLONASE NASAL SPRAY ENOSTRIL SCH ×2 (09:08→22:10)
[2020-04-08] MEDS: MAGNESIUM SULFATE 1 GRAM/100 mL PREMIX 1 GM/100 ML BAG IV PRN ×7 (10:44→21:00)
[2020-04-08] MEDS ORDERED: ASTELIN NASAL SPRAY ENOSTRIL ONE (15:28)
[2020-04-08] MEDS: ASTELIN NASAL SPRAY ENOSTRIL SCH ×2 (15:49→22:00)
[2020-04-09] MEDS: NS 1000 ML 1,000 ML IV SCH (03:30)
[2020-04-09] MEDS: ZOSYN VIAL 3.375 GRAMS 3.375 G in NS 100 ML IV + SPIKE MINIBAG* 100 ML IV SCH (05:27)
[2020-04-09] MEDS: ASTELIN NASAL SPRAY ENOSTRIL SCH (05:27)
[2020-04-09 05:45] LABS: BASOPHILS # (AUTO) 0.7 X10^3/uL (0.0-0.1); BASOPHILS % (AUTO) 7.6 % (0.2-1.0); EOSINOPHILS # (AUTO) 0.1 x10^3/uL (0.0-0.2); EOSINOPHILS % (AUTO) 1.4 % (0.9-2.9); HEMATOCRIT 25.8 % (36.0-47.0); HEMOGLOBIN 8.5 g/dL (12.0-16.0); LYMPHOCYTES # (AUTO) 1.4 X10^3/uL (1.3-2.9); LYMPHOCYTES % (AUTO) 14.8 % (21.0-51.0); MEAN CORPUSCULAR HGB CONC 33.1 g/dL (33.0-35.0); MEAN CORPUSCULAR VOLUME 81.6 fL (80.0-100.0); MEAN PLATELET VOLUME 7.5 fL (7.4-11.0); MONOCYTES # (AUTO) 0.6 x10^3/uL (0.3-0.8); MONOCYTES % (AUTO) 6.3 % (0.0-13.0); NEUTROPHILS # (AUTO) 6.8 x10^3/uL (2.2-4.8); NEUTROPHILS % (AUTO) 69.9 % (42.0-75.0); PLATELET COUNT 825 X10^3/uL (150.0-450.0); RED BLOOD COUNT 3.16 X10^6/uL (3.5-5.4); RED CELL DISTRIBUTION WIDTH 16.2 % (11.6-16.5); WHITE BLOOD COUNT 9.7 X10^3/uL (3.6-10.0)
[2020-04-09 05:56] LABS: ALANINE AMINOTRANSFERASE 9 Units/L (12-78); ALBUMIN 2.2 g/dL (3.4-5.0); ALKALINE PHOSPHATASE 118 Units/L (46-116); ASPARTATE AMINO TRANSFERASE 14 Units/L (15-37); BLOOD UREA NITROGEN 3 mg/dL (7-18); CALCIUM 7.7 mg/dL (8.5-10.1); CARBON DIOXIDE 27.3 mmol/L (21-32); CHLORIDE 101 mmol/L (98-107); COR CA(FOR HYPOALB) 9.1 mg/dL (8.5-10.1); CREATININE 0.61 mg/dL (0.55-1.02); MAGNESIUM 1.8 mg/dL (1.7-2.9); SODIUM 136 mmol/L (136-145); TOTAL PROTEIN 5.4 g/dL (6.4-8.2); eGFR NON BLACK RACES > 60 (>60)
[2020-04-09 06:12] LABS: BAND NEUTROPHILS % 2 % (0-10)
[2020-04-09 06:13] LABS: ANISOCYTOSIS SLIGHT; HYPOCHROMASIA SLIGHT; PLATELET MORPHOLOGY COMMENT NORMAL (NORMAL)
[2020-04-09] MEDS: DUONEB 0.5 MG/3 MG (3 mL) NEB SCH (06:19)
--- NOTE | 2020-04-09 08:17 | RAD ---
HISTORYSHORTNESS OF BREATHSTUDYCHEST, 1 [id number]/04/2020FINDINGSThe trachea is midline. Stable borderline heart and mild prominence of the aortic knob. There are some patchy atelectasis in the right base unchanged since prior. There is also a more focal patchy radiopacity in the left base with partial effacement of the diaphragm. No pneumothorax or effusions. There are again seen some 2nd to 5th left lateral rib fractures that appears subacute with some healingIMPRESSIONPersistent left lower lobe patchy radiopacity atelectasis versus pneumonia.Electronically signed by: Maegan Spicer (Apr 09, 2020 08:16:05)
[2020-04-09] MEDS: VSL#3 PO SCH (09:54)
[2020-04-09] MEDS: LOVENOX INJ 30 MG SYR SC SCH (09:54)
[2020-04-09] MEDS: FLONASE NASAL SPRAY ENOSTRIL SCH (09:58)
[2020-04-09] MEDS: ROBITUSSIN DM PO SCH ×2 (10:28→13:27)
[2020-04-09] MEDS: KLOR-CON PO PRN (10:37)
[2020-04-09 13:18] VITALS: BP 121/67
== END 2020-04-09 14:15 | disposition home health service (06) | DRG 195 ==
LOC: MED/SURG 15:44 → ER 15:44 → MED/SURG 23:14
PROVIDERS: ADMIT Family Medicine; ATTEND Internal Medicine
CPT/HCPCS: 36415; 71010; 71045; 80053; 81003; 82728; 83605; 83615; 83735; 83880; 84132; 85025; 85060; 86140; 87040; 87070; 87205; 87635; 94640; 94760; 96365; 96367; 96374; 96375; 97162; 99284; A4222; G0378; J0696; J1650; J2270; J2405; J2543; J3475; J7030; J7050; J7620

== ENCOUNTER 2020-11-09 02:46 | Inpatient (IN) ==
[2020-11-09 03:24] LABS: ABG BASE EXCESS 3.2 mmol/L (-2.0-2.0); ABG HCO3 26.9 mmol/L (22-26)
[2020-11-09] MEDS ORDERED: OFIRMEV IV 1000 MG VIAL 1,000 MG/100 ML VIAL IV ONE ×2 (03:39→03:46)
[2020-11-09] MEDS ORDERED: ASPIRIN 81 MG CHEWTAB PO ONE (03:40)
--- NOTE | 2020-11-09 03:42 | DR.SOBA ---
HPI Time Seen Time Seen by Provider: 11/09/20 03:05 Primary Care Physician Primary Care Physician: CRISTINA HPI Comment HPI Comment: PATIENT IS 89YR OLD FEMALE IN ER VIA EMS WITH INCREASING SOB, AMS AND LOW O2 SATURATION. PATIENT IS COVID 19 VIRUS POSITIVE AND IS RUNNING FEVER. SHE IS ON ON OXYGEN IN ER NR. PATIENT HAVE COUGH AND CONGESTION. DENIES CHEST PAIN. Complaints Chief Complaint Doctors Comments: INCREASING SOB AND LOW OXYGEN SATURATION AND AMS. Chief Complaint:: EMS OUT TO SOB COUGH AND LOW OXYGEN REC'D PATIENT WITH O2 SAT OF 97 ON NRB PT NOT ANSWERING QUESTIONS COVID-19 Coronavirus risk:travel/contact w/high risk person: No Has patient experienced Coronavirus symptoms: Yes Coronavirus symptoms experienced: Coughing and Shortness of Breath Reviewed Nurses Notes Reviewed: Yes Source History Provided: EMS Mode of Arrival Mode of Arrival: EMS Timing Onset of Chief Complaint: 11/09/20 Duration Duration: Days Context Onset:: At Rest PE Risk Factors:: None History of:: CHF Currently on:: Neither Prehospital Care:: None Modifying Factors Worsens:: Exertion and Lying Flat Improves:: Rest and Sitting Up Associated Signs and Symptoms Associated Signs and Symptoms: Fever, Wheeze and Cough If Chest Pain Quality: Pleuritic Location: Substernal If Cough Cough: Productive and Yellow PMH PMH Past Medical History: Yes Past Medical History: Anxiety, Arthritis, CHF, CVA, Hypertension and Seizures Past Medical History Comment: lung ca Past Surgical History: Yes Surgical History: Cholecystectomy and Other Family History History of Family Medical Conditions: Yes Family Medical History: Coronary Artery Disease and Hypertension Social History Does any household member use tobacco: No Alcohol Use: None Do you use any recreational Drugs:: No Lives With: Family Lives Where: Home Infectious screening In the last 2 months have you had wt loss of >10#?: NO Have you had fever, night sweats or hemotysis?: No Have you traveled outside the country in the last 6 months?: No Isolation: Standard ROS Review of Systems Constitutional: See HPI, Fever, Weakness and Fatigue Eyes: No Symptoms Reported and See HPI ENTM: See HPI and Nose Congestion; negative Nose Discharge Respiratoy: See HPI, Productive Cough, Short of Breath and Wheezing Cardiovascular: See HPI and Other (PLEURITIC CHEST TIGHTNESS.) Gastrointestinal/Abdominal: No Symptoms Reported and See HPI; negative Abdominal Pain, Diarrhea and Vomiting Genitourinary: No Symptoms Reported and See HPI; negative Dysuria and Hematuria Neurological: See HPI, Weakness and Dizziness; negative Headache Musculoskeletal: No Symptoms Reported, See HPI and Muscle Pain; negative Back Pain Integumentary: No Symptoms Reported and See HPI; negative Change in Color, Rash and Juandice Hematologic/Lymphatic: No Symptoms Reported and See HPI; negative Easy Bruising and Swollen Glands Endocrine: No Symptoms Reported and See HPI; negative Increased Thirst and Increased Urine Psychiatric: No Symptoms Reported and See HPI All Other Systems: Reviewed and Negative PE Vital Signs Vitals: Temperature 100.4 F Pulse Rate [Bilateral] 106 Pulse Rate 128 Respiratory Rate 29 Blood Pressure [Right Arm] 97/53 Blood Pressure 126/78 O2 Sat by Pulse Oximetry 99 General Limitations: Altered Mental Status General Appearance: Alert and In No Apparent Distress Head Head Exam: Normal Inspection, Atraumatic and Normocephalic Eyes Eye exam: Normal Appearance, PERRL and EOMI; negative Scleral Icterus and Conjunctival Injection ENT ENT Exam: Normal External Ear Exam and TM's Normal Bilaterally; negative Normal Oropharynx Neck Neck Exam: Normal Inspection and Trachea Midline; negative Tenderness and Lymphadenopathy Chest Chest Inspection: Normal Inspection and Symmetric Chest Wall Rise; negative Tenderness Respiratory Respiratory Exam: Normal Lung Sounds Bilat, Accessory Muscle Use and Respiratory Distress; negative Chest Wall Tenderness Respiratory Exam: Bilateral: Clear to Auscultation, Bilateral: Wheezing and Bilateral: Rhonchi and Lower: Wheezing and Lower: Rhonchi Cardiovascular Cardiovascular Exam: Regular Rate, Normal Rhythm and Normal Heart Sounds; negative Systolic Murmur and Diastolic Murmur Abdominal Exam Abdominal Exam: Normal Inspection, Normal Bowel Sounds and Soft; negative Tenderness Extremities Extremities Exam: Normal Inspection and Normal Capillary Refill; negative Tenderness and Calf Tenderness Back Back Exam: Normal Inspection; negative (R) CVA Tenderness and (L) CVA Tenderness Neurologic Neurological Exam: Alert and Oriented X3; negative Motor Sensory Deficit Psychiatric Psychiatric Exam: Normal Affect and Anxious Skin Skin Exam: Dry MDM Differential Diagnosis Differential Diagnosis: Bronchitis, CHF, COPD, Dysrhythmia, Hyponatremia, Mycardial Infarction, Pneumonia, Pneumothorax, Pulmonary embolism, Respiratory Insufficiency and Sinusitis COURSE Treatment Treatment: SEE ORDERS. NS 100CC/HR, ROCEPHIN IGM IVPB, OFIRMEV IVPB. Consultation Consultation Comments: discussed patient with dr. martinez. he will admit patient. Education/Counseling Education/Counseling: Patient Educated On: Diagnosis ROR Labs Reviewed Laboratory Results Reviewed?: Yes Result Diagrams: 11/13/20 04:25 11/13/20 04:25 Laboratory: 11/09/20 04:03 Blood Blood Culture - Final 11/09/20 03:50 Blood Blood Culture - Final WBC 5.3 X10^3/uL (3.6-10.0) 11/09/20 03:50 RBC 2.97 X10^6/uL (3.5-5.4) L 11/09/20 03:50 Hgb 10.8 g/dL (12.0-16.0) L 11/09/20 03:50 Hct 31.7 % (36.0-47.0) L 11/09/20 03:50 MCV 106.9 fL (80.0-100.0) H 11/09/20 03:50 MCH 36.5 pg (27.0-34.0) H 11/09/20 03:50 MCHC 34.1 g/dL (33.0-35.0) 11/09/20 03:50 RDW 14.6 % (11.6-16.5) 11/09/20 03:50 Plt Count 124 X10^3/uL (150.0-450.0) L 11/09/20 03:50 Plt Count Comment Decreased (ADEQUATE) A 11/09/20 03:50 MPV 7.5 fL (7.4-11.0) 11/09/20 03:50 Neut % (Auto) 82.7 % (42.0-75.0) H 11/09/20 03:50 Lymph % (Auto) 12.8 % (21.0-51.0) L 11/09/20 03:50 [place] % (Auto) 4.2 % (0.0-13.0) 11/09/20 03:50 Eos % (Auto) 0.0 % (0.9-2.9) L 11/09/20 03:50 Baso % (Auto) 0.3 % (0.2-1.0) 11/09/20 03:50 Neut # (Auto) 4.4 x10^3/uL (2.2-4.8) 11/09/20 03:50 Lymph # (Auto) 0.7 X10^3/uL (1.3-2.9) L 11/09/20 03:50 [place] # (Auto) 0.2 x10^3/uL (0.3-0.8) L 11/09/20 03:50 Eos # (Auto) 0.0 x10^3/uL (0.0-0.2) 11/09/20 03:50 Baso # (Auto) 0.0 X10^3/uL (0.0-0.1) 11/09/20 03:50 Absolute Nucleated RBC 0.0 /100WBC 11/09/20 03:50 Plt Morphology Comment Normal (NORMAL) 11/09/20 03:50 RBC Morphology Abnormal (NORMAL) A 11/09/20 03:50 Macrocytosis 1+ A 11/09/20 03:50 Sample Site Lb 11/09/20 03:19 ABG pH 7.470 (7.35-7.45) H 11/09/20 03:19 ABG pCO2 37.0 mmHg (35.0-45.0) 11/09/20 03:19 ABG pO2 68.0 mmHg (80.0-100.0) L 11/09/20 03:19 ABG HCO3 26.9 mmol/L (22-26) H 11/09/20 03:19 ABG O2 Saturation 94.0 % (90-100) 11/09/20 03:19 ABG Base Excess 3.2 mmol/L (-2.0-2.0) H 11/09/20 03:19 Cristian Test N/a 11/09/20 03:19 A-a Gradient 599.0 mmHg 11/09/20 03:19 FiO2 100.0 11/09/20 03:19 Blood Gas Comments Nica well ae 11/09/20 03:19 Sodium 136 mmol/L (136-145) 11/09/20 03:50 Corrected Sodium 138 mmol/L (136-145) 11/09/20 03:50 Potassium 3.4 mmol/L (3.5-5.1) L 11/09/20 03:50 Chloride 97 mmol/L (98-107) L 11/09/20 03:50 Carbon Dioxide 26.2 mmol/L (21-32) 11/09/20 03:50 BUN 26 mg/dL (7-18) H 11/09/20 03:50 Creatinine 0.93 mg/dL (0.55-1.02) 11/09/20 03:50 Est GFR (MDRD) Af Amer > 60 (>60) 11/09/20 03:50 Est GFR (MDRD) Non-Af > 60 (>60) 11/09/20 03:50 Glucose 188 mg/dL (65-99) H 11/09/20 03:50 Lactic Acid 2.0 mmol/L (0.4-2.0) 11/09/20 03:50 Calcium 8.9 mg/dL (8.5-10.1) 11/09/20 03:50 Corrected Calcium TNP 11/09/20 03:50 Magnesium 1.3 mg/dL (1.7-2.9) L 11/09/20 03:50 Ferritin 192 ng/mL (8-252) 11/09/20 03:50 Total Bilirubin 0.70 mg/dL (0.2-1.0) 11/09/20 03:50 AST 41 Units/L (15-37) H 11/09/20 03:50 ALT 21 Units/L (12-78) 11/09/20 03:50 Alkaline Phosphatase 50 Units/L (46-116) 11/09/20 03:50 Creatine Kinase 159 Units/L (26-192) 11/09/20 03:50 CK-MB (CK-2) 13.7 ng/mL (0-4.0) H* 11/09/20 03:50 CK/CKMB % Calc 8.6 % (<4) 11/09/20 03:50 Troponin I 0.07 ng/mL (0-1.5) 11/09/20 03:50 C-Reactive Protein 22.50 mg/L (0-3.0) H 11/09/20 03:50 B-Natriuretic Peptide 118 pg/mL (0-79) H 11/09/20 03:50 Total Protein 6.6 g/dL (6.4-8.2) 11/09/20 03:50 Albumin 3.8 g/dL (3.4-5.0) 11/09/20 03:50 Globulin 2.8 g/dL (2.5-4.5) 11/09/20 03:50 Albumin/Globulin Ratio 1.4 Ratio (1.1-2.1) 11/09/20 03:50 Amylase 44 Units/L (25-115) 11/09/20 03:50 Lipase 173 Units/L (73-393) 11/09/20 03:50 XRAY XRAY Interpreted by: Radiologist (REPORT NOTED.) and Self EKG Rate: 104 [place]: Normal Rhythm: ST and PACs Block: IVCD Hypertrophy: None ST: Old, Ant, Lat and Infarct Opioid Opioid Risk Tool Age (Dav[place] box if 16-45): No History of Preadolescent Sexual Abuse: No Total: 0 Total Score Risk Category: Low Risk Copyright: [facility] predicting aberrant behaviors Diagnosis Discharge Problem: COVID-19 virus infection, Hypoxia Pneumonia Qualifiers: Pneumonia type: due to unspecified organism Laterality: bilateral Lung location: lower lobe of lung Qualified Code(s): J18.9 - Pneumonia, unspecified organism Instructions Forms: EUA Consent Excuse From Work or School Precautions for COVID19 Patient Portal Social Distancing
[2020-11-09] MEDS ORDERED: NS 1000 ML 1,000 ML IV SCH (04:00)
[2020-11-09] MEDS ORDERED: NS 1000 ML 1,000 ML ONE (04:05)
[2020-11-09 04:26] LABS: BASOPHILS % (AUTO) 0.3 % (0.2-1.0); HEMATOCRIT 31.7 % (36.0-47.0); HEMOGLOBIN 10.8 g/dL (12.0-16.0); LYMPHOCYTES # (AUTO) 0.7 X10^3/uL (1.3-2.9); LYMPHOCYTES % (AUTO) 12.8 % (21.0-51.0); MEAN CORPUSCULAR HEMOGLOBIN 36.5 pg (27.0-34.0); MEAN CORPUSCULAR HGB CONC 34.1 g/dL (33.0-35.0); MEAN CORPUSCULAR VOLUME 106.9 fL (80.0-100.0); MEAN PLATELET VOLUME 7.5 fL (7.4-11.0); MONOCYTES # (AUTO) 0.2 x10^3/uL (0.3-0.8); MONOCYTES % (AUTO) 4.2 % (0.0-13.0); NEUTROPHILS # (AUTO) 4.4 x10^3/uL (2.2-4.8); NEUTROPHILS % (AUTO) 82.7 % (42.0-75.0); PLATELET COUNT 124 X10^3/uL (150.0-450.0); RED BLOOD COUNT 2.97 X10^6/uL (3.5-5.4); RED CELL DISTRIBUTION WIDTH 14.6 % (11.6-16.5); WHITE BLOOD COUNT 5.3 X10^3/uL (3.6-10.0)
--- NOTE | 2020-11-09 04:47 | RAD ---
PROCEDURE: Chest X-ray 1 View .HISTORY: Short of breath and COVID-19.TECHNIQUE: AP view .COMPARISON: 04/09/2020.TECHNICAL QUALITY: Satisfactory .FINDINGS:Normal size heart for AP portable technique.Tortuous aorta.Normal central vascularity.Consolidation lung bases greatest on the right with no pleural fluid or pneumothorax.IMPRESSION:Bibasilar pneumonia greatest on the right.Electronically signed by: Nolan Meza (Nov 09, 2020 04:45:57)
[2020-11-09 05:20] LABS: BLOOD UREA NITROGEN 26 mg/dL (7-18); CALCIUM 8.9 mg/dL (8.5-10.1); CARBON DIOXIDE 26.2 mmol/L (21-32); CHLORIDE 97 mmol/L (98-107); COR NA(FOR HYPERGLY) 138 mmol/L (136-145); CREATININE 0.93 mg/dL (0.55-1.02); SODIUM 136 mmol/L (136-145); TROPONIN I 0.07 ng/mL (0-1.5); eGFR NON BLACK RACES > 60 (>60)
[2020-11-09 05:22] LABS: PLATELET MORPHOLOGY COMMENT NORMAL (NORMAL)
[2020-11-09] MEDS ORDERED: FORTAZ or TAZICEF VIAL INJ 1 G in NS 100 ML IV + SPIKE MINIBAG* 100 ML IV ONE (05:30)
[2020-11-09] MEDS ORDERED: NS 100 ML IV + SPIKE MINIBAG* 100 ML IV ONE (05:33)
[2020-11-09] MEDS ORDERED: FORTAZ or TAZICEF VIAL INJ ONE (05:33)
[2020-11-09 05:42] LABS: ALANINE AMINOTRANSFERASE 21 Units/L (12-78); ALKALINE PHOSPHATASE 50 Units/L (46-116); AMYLASE 44 Units/L (25-115); ASPARTATE AMINO TRANSFERASE 41 Units/L (15-37); CKMB % 8.6 % (<4); CREATINE KINASE 159 Units/L (26-192); LIPASE 173 Units/L (73-393); MAGNESIUM 1.3 mg/dL (1.7-2.9); TOTAL PROTEIN 6.6 g/dL (6.4-8.2)
[2020-11-09 05:47] LABS: CREATINE KINASE MB 13.7 ng/mL (0-4.0)
[2020-11-09 05:55] LABS: ALBUMIN 3.8 g/dL (3.4-5.0)
[2020-11-09] MEDS: FORTAZ or TAZICEF VIAL INJ 1 G in NS 100 ML IV + SPIKE MINIBAG* 100 ML IV SCH ×3 (09:19→21:39)
[2020-11-09 09:33] LABS: BILIRUBIN,URINE NEGATIVE (NEGATIVE); BLOOD/HEMOGLOBIN,URINE NEGATIVE (NEGATIVE); GLUCOSE, URINE NEGATIVE (NEGATIVE); KETONES,URINE 1+ (NEGATIVE); LEUKOCYTE ESTERASE ,URINE NEGATIVE (NEGATIVE); NITRITES,URINE NEGATIVE (NEGATIVE); PROTEIN,URINE 2+ (NEGATIVE); UROBILINOGEN,URINE NORMAL (NORMAL)
[2020-11-09] MEDS: PULMICORT NEB TX 0.5 MG NEB SCH ×2 (09:45→20:10)
[2020-11-09] MEDS: ACCUNEB 1.25 MG NEBULE NEB SCH ×4 (09:45→20:10)
[2020-11-09] MEDS: BROVANA IN SCH ×2 (09:50→20:51)
[2020-11-09 09:59] LABS: APPEARANCE,URINE CLEAR (CLEAR); COLOR,URINE YELLOW (YELLOW)
[2020-11-09 10:00] LABS: RBC,URINE NONE SEEN /HPF (0-3); SQUAMOUS EPITHELIAL CELL,UR RARE /HPF (NEGATIVE)
[2020-11-09 10:01] LABS: BACTERIA,URINE NEGATIVE /HPF (NEGATIVE); MUCUS,URINE RARE /HPF (NEGATIVE)
[2020-11-09] MEDS: ROBITUSSIN DM PO SCH ×3 (10:40→17:24)
[2020-11-09] MEDS: VSL#3 PO SCH (10:40)
[2020-11-09] MEDS ORDERED: MAGIC MOUTHWASH MT PRN (10:55)
[2020-11-09] MEDS ORDERED: REMDESIVIR 200 MG in NS 250 ML IV 250 ML IV NR (10:55)
[2020-11-09] MEDS ORDERED: PHARMACY CONSULT - IVERMECTIN XX SCH (11:00)
--- NOTE | 2020-11-09 11:08 | DR.H&P ---
H&P - History & Physical for Day of: H&P Date: 11/09/20 - Chief Complaint Chief Complaint: COUGH, SOB, FEVER, WEAKNESS, LOW OXYGEN SATURATIONS - History of Present Illness History of Present Illness: IS A 89 YEAR OLD PATIENT OF OURS. EMS WAS CALLED TO PATIENT DUE TO COMPLAINTS OF FEVER, COUGH, SHORTNESS OF BREATH, AND LOW OXYGEN SATURATIONS. HER SATURATIONS HAD APPARENTLY BEEN IN THE 70s-80s ON ROOM AIR PRIOR TO EMS ARRIVAL. SHE WAS PLACED ON A NON-REBREATHER AT 15L AND HER SATURATIONS INCREASED TO THE 90s. PATIENT HAS APPARENTLY HAD SYMPTOMS FOR ABOUT A WEEK NOW AND THEY HAVE PROGRESSIVELY GOTTEN WORSE. SHE TESTED POSITIVE FOR COVID-19 ON 11/06/2020. AT THAT TIME, SHE WAS STARTED ON A Z PACK, AND CEPHALEXIN 500MG PO BID X 7 DAYS. ON ARRIVAL TO THE ER, SHE WAS NOTED TO BE LETHARGIC AND DID NOT RESPOND TO VERBAL COMMAND. HER VITALS ON ARRIVAL WERE 100.4-131-36-97%NRB-135/80. LABS WERE OBTAINED. ABNORMAL LAB VALUES INCLUDED THE FOLLOWING: RBC 2.97, HGB 10.8, HCT 31.7, PLT COUNT 124, POTASSIUM 3.4, CHLORIDE 97, BUN 26, GLUCOSE 188, MAGNESIUM 1.3, AST 41, CK-MB 13.7, BNP 118, CRP 22.50. AN ABG WAS OBTAINED AND REVEALED: PH 7.470, PC02 37, P02 68, HC03 26.9, 02 SAT 94, BASE EXCESS 3.2, A-A GRADIENT 599, FI02 100. URINALYSIS IS UNREMARKABLE. BLOOD CULTURES WERE SET UP. AN EKG WAS OBTAINED AND REVEALED: SINUS TACHYCARDIA WITH HR 134. A CHEST XRAY WAS OBTAINED AND REVEALED: Bibasilar pneumonia greatest on the right. WHILE IN THE ER, PATIENT BEGAN TO VOMIT INTO THE NRB MASK. PATIENT WAS SUCTIONED. NO S/SX ASPIRATION NOTED. IN THE ER, SHE WAS GIVEN TYLENOL 1G IV X 1 DOSE, FORTAZ 1G IV X 1. SHE WAS ADMITTED TO THE HOSPITAL FOR FURTHER EVALUATION AND TREATMENT OF PNEUMONIA DUE TO COVID-19 AND HYPOXIA. SHE WAS STARTED ON 1/2NS AT 50 ML/HR, REMDESIVIR 100MG IV DAILY, FORTAZ 1G IV Q8H, IVERMECTIN, SOLU-MEDROL 125MG IV Q6H, LOVENOX, ALBUTEROL NEB TX QID, PULMICORT NEB TX BID, BROVANA BID, MUCOMYST IN NEBS QID, DECADRON IN NEBS BID, PEPCID 20MG DAILY, PROTONIX 40MG IV DAILY, DIFLUCAN 100MG PO DAILY, ROBITUSSIN DM QID, TESSALON PERLES 200MG PO TID, ASCORBIC ACID 1500MG Q6H, VITAMIN D DAILY, ZINC 220MG PO DAILY, MELATONIN 10MG PO HS, MILK OF MAGNESIA 30ML BID, THIAMINE 200MG IV BID, ATORVASTATIN 80MG PO HS, MAGIC MOUTHWASH QID PRN, HUMULIN R SLIDING SCALE, SINGULAIR 10MG PO HS, ZYRTEC 10MG PO HS, LESLY-DUR 300MG PO BID. WE PLAN TO OBTAIN A CHEST CTA AND ECHOCARDIOGRAM. OTHERWISE, WE PLAN TO FOLLOW UP WITH AM LABS, CHEST XRAY, ABG, AND CONTINUE TO MONITOR. TIME SPENT ON CLINICAL ASSESSMENT, REVIEWING LABS AND IMAGING, DECISION MAKING, AND DOCUMENTATION GREATER THAN 75 MINUTES. - Past Medical History Past Medical History: Hypertension, Anxiety, CVA, Seizures, Arthritis, CHF Additional Medical History: Hearing and Vision deficit, Urinary Tract In fections, Muscle Weakness, Cancer of lung- right lower lobe - Past Surgical History Surgical History: Cholecystectomy, Other Additional Surgical History: Right Lower Lung Lobectomy 2013, ORIF of left femur - Family History Family Medical History: Coronary Artery Disease, Hypertension - Social History Does any household member use tobacco: No Alcohol Use: None - Medications Home Medications: ciprofloxacin [From Cipro] Allergy (Verified 05/25/17 18:00) codeine Allergy (Verified 05/25/17 18:00) metronidazole [From Flagyl] Allergy (Verified 12/12/19 09:12) - Review of Systems Constitutional: Fever, Weakness Eyes: No Symptoms Reported ENT: No Symptoms Reported Respiratory: Cough, Shortness of Breath Cardiovascular: No Symptoms Reported Gastrointestinal: No Symptoms Reported Genitourinary: No Symptoms Reported Musculoskeletal: No Symptoms Reported Skin: No Symptoms Reported Neurological: Weakness, Other (lethargic) - Physical Exam Vital Signs: Temperature 97.9 F Pulse Rate [Bilateral] 106 Pulse Rate 106 Respiratory Rate 29 Blood Pressure [Right Arm] 97/53 Blood Pressure 126/78 O2 Sat by Pulse Oximetry 100 Oriented: Unable to test Eyes: Normal Ear: Normal Nose: Normal Throat: Normal Respiratory: Rales Throughout Cardiovascular: Tachycardia : Normal Auscultation: Bowel Sounds: Normal Palpation: Normal Tenderness: Normal Skin: Normal Musculoskeletal: Normal Psychiatric: Normal Mood Description: Calm Affect: Normal Speech Pattern: Clear - Assessment/Plan (1) COVID-19 virus infection Status: Acute Plan: supplemental oxygen, iv antibiotics, resporatory therapy, pulmonary toileting, monitor labs, abg, chest xray (2) Pneumonia Qualifiers: Pneumonia type: due to unspecified organism Laterality: bilateral Lung location: lower lobe of lung Qualified Code(s): J18.9 - Pneumonia, unspecified organism Status: Acute (3) Acute myocardial infarction Qualifiers: Myocardial infarction type: unspecified Involved coronary artery: unspecified coronary artery Qualified Code(s): I21.9 - Acute myocardial infarction, unspecified Status: Acute Plan: heparin drip, requirements analyst, blood pressure control, statin therapy, repeat cardiac enzymes. 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 (6) Diabetes mellitus, type 2 Qualifiers: Diabetes mellitus custodial insulin use: unspecified custodial insulin use status Diabetes mellitus complication status: without complication Qualified Code(s): E11.9 - Type 2 diabetes mellitus without complications Status: Chronic (7) Essential hypertension Status: Chronic (8) GERD (gastroesophageal reflux disease) Qualifiers: Esophagitis presence: esophagitis presence not specified Qualified Code(s): K21.9 - Gastro-esophageal reflux disease without esophagitis Status: Chronic - Allergies Allergies/Adverse Reactions: Allergies Allergy/AdvReac Type Severity Reaction Status Date / Time ciprofloxacin [From Cipro] Allergy Verified 05/25/17 18:00 codeine Allergy Verified 05/25/17 18:00 metronidazole [From Flagyl] Allergy Verified 12/12/19 09:12
[2020-11-09 11:10] LABS: CKMB % 12.9 % (<4)
[2020-11-09 11:29] LABS: CREATINE KINASE MB 68.3 ng/mL (0-4.0)
[2020-11-09 11:31] LABS: TROPONIN I 46.17 ng/mL (0-1.5)
[2020-11-09] MEDS ORDERED: IVERMECTIN PO SCH (12:00)
[2020-11-09] MEDS ORDERED: DECADRON JET NEB (RESP USE) NEB SCH (12:00)
[2020-11-09 12:03] VITALS: BMI 24.7
[2020-11-09] MEDS: MUCOMYST 20% 200 MG/ML NEB SCH ×4 (13:20→20:10)
[2020-11-09] MEDS: PROTONIX INJ 40 MG VIAL IVP SCH (13:20)
[2020-11-09] MEDS: SOLU-Medrol 125 MG VIAL IVP SCH ×3 (13:25→20:53)
[2020-11-09] MEDS: PLAVIX PO SCH (15:00)
[2020-11-09] MEDS: ZyrTEC TAB 10 MG PO SCH (15:01)
[2020-11-09] MEDS: ZINC SULFATE PO SCH (15:01)
[2020-11-09] MEDS: VITAMIN D3 125 mcg (5,000 UNITS) PO SCH (15:02)
[2020-11-09] MEDS: THEO-DUR TAB 300 MG 12-HR PO SCH (15:02)
[2020-11-09] MEDS: TESSALON PERLES PO SCH ×2 (15:04→15:31)
[2020-11-09] MEDS: DIFLUCAN PO SCH (15:04)
[2020-11-09] MEDS: THIAMINE HCL INJ IVP SCH ×2 (15:32→20:53)
[2020-11-09] MEDS: MILK OF MAGNESIA PO SCH ×2 (15:34→21:39)
[2020-11-09] MEDS: TUSSIONEX PENNKINETIC SUSP PO PRN (16:30)
[2020-11-09] MEDS: PEPCID 20 MG IV PREMIX* 20 MG/50 ML BAG IV SCH (16:30)
[2020-11-09] MEDS ORDERED: HEPARIN SODIUM INJ 5000 UNITS IVP ONE (16:32)
[2020-11-09] MEDS: ASCORBIC ACID INJ MULTI-DOSE VIAL 1,500 MG in NS 50 ML IV 50 ML IV SCH ×3 (17:16→22:28)
[2020-11-09] MEDS: HEPARIN SODIUM IN D5W 25,000 UNITS/500 ML BAG IV PRN (17:30)
[2020-11-09] MEDS ORDERED: NS 1/2 1000 ML IV 1,000 ML IV ONE (17:46)
[2020-11-09 18:02] LABS: CKMB % 10.1 % (<4); CREATINE KINASE MB 67.9 ng/mL (0-4.0); TROPONIN I 49.52 ng/mL (0-1.5)
[2020-11-09] MEDS: NS 1/2 1000 ML IV 1,000 ML IV SCH (18:51)
[2020-11-09] MEDS ORDERED: PHENERGAN INJ 25 MG IM ONE (20:18)
[2020-11-09] MEDS: HumuLIN R SUBCUT PRN (20:54)
[2020-11-09] MEDS: SNACK - Diabetic Appropriate PO SCH (22:04)
[2020-11-09] MEDS ORDERED: POTASSIUM CHL 40 MEQ/NS 0.45% 500 ML IV PRN (22:46)
[2020-11-09] MEDS ORDERED: POTASSIUM CHL 60 MEQ/NS 0.45% 500 ML IV PRN (22:46)
[2020-11-09] MEDS ORDERED: KLOR-CON PO PRN (22:46)
[2020-11-09] MEDS ORDERED: POTASSIUM CHLORIDE LIQ 20 MEQ UDC PO PRN (22:46)
[2020-11-09] MEDS ORDERED: MICRO K EXTEN CAP 10 MEQ PO PRN (22:46)
[2020-11-09] MEDS ORDERED: K-DUR TAB 20 MEQ PO PRN (22:46)
[2020-11-09] MEDS: MAGNESIUM SULFATE 1 GRAM/100 mL PREMIX 1 GM/100 ML BAG IV PRN (23:25)
[2020-11-10] MEDS: K-RIDER 10 MEQ/NS 100 ML 10 MEQ/100 ML BAG IV PRN ×2 (00:24→02:44)
[2020-11-10 00:35] LABS: CKMB % 7.7 % (<4)
[2020-11-10 00:38] LABS: CREATINE KINASE MB 45.9 ng/mL (0-4.0)
[2020-11-10 00:39] LABS: TROPONIN I 70.47 ng/mL (0-1.5)
[2020-11-10] MEDS: LIPITOR TAB 80 MG PO SCH ×2 (01:15→21:34)
[2020-11-10] MEDS: MELATONIN PO SCH ×2 (01:16→21:34)
[2020-11-10] MEDS: TESSALON PERLES PO SCH ×4 (01:16→21:35)
[2020-11-10] MEDS: SINGULAIR TAB 10 MG PO SCH ×2 (01:16→21:34)
[2020-11-10] MEDS: THEO-DUR TAB 300 MG 12-HR PO SCH ×3 (01:16→21:34)
[2020-11-10] MEDS: NS 1/2 1000 ML IV 1,000 ML IV SCH ×2 (01:17→18:49)
[2020-11-10] MEDS: MAGNESIUM SULFATE 1 GRAM/100 mL PREMIX 1 GM/100 ML BAG IV PRN (01:37)
[2020-11-10] MEDS: ROBITUSSIN DM PO SCH ×5 (02:45→20:36)
[2020-11-10] MEDS ORDERED: NS 500 ML IV 500 ML IV ONE ×2 (02:57→02:59)
[2020-11-10] MEDS: ASCORBIC ACID INJ MULTI-DOSE VIAL 1,500 MG in NS 50 ML IV 50 ML IV SCH ×4 (03:35→20:54)
[2020-11-10] MEDS: SOLU-Medrol 125 MG VIAL IVP SCH ×4 (04:11→20:55)
[2020-11-10] MEDS: TUSSIONEX PENNKINETIC SUSP PO PRN (04:51)
[2020-11-10 04:59] LABS: ABG ALLEN TEST POS; ABG BASE EXCESS 2.9 mmol/L (-2.0-2.0); ABG HCO3 25.5 mmol/L (22-26)
--- NOTE | 2020-11-10 05:44 | RAD ---
HISTORYcovid pneumoniaSTUDYPortable AP chestCOMPARISONFebruary 2020FINDINGSContinued upper normal heart size with tortuous and dilated aorta. Persistent bilateral areas of airspace consolidation, similar in the right lung and slightly increased on the left. There is no evidence for complicating pneumothorax or pleural fluid.IMPRESSIONBilateral pneumonia with slight progression in the left lung since 1 day earlier.Electronically signed by: ESE GUZMAN (Nov 10, 2020 05:43:17)
[2020-11-10] MEDS: FORTAZ or TAZICEF VIAL INJ 1 G in NS 100 ML IV + SPIKE MINIBAG* 100 ML IV SCH ×3 (05:57→21:06)
[2020-11-10 08:38] LABS: BASOPHILS % (AUTO) 0 % (0.2-1.0); HEMOGLOBIN 8.9 g/dL (12.0-16.0); LYMPHOCYTES # (AUTO) 0.5 X10^3/uL (1.3-2.9); LYMPHOCYTES % (AUTO) 5.5 % (21.0-51.0); MEAN CORPUSCULAR HEMOGLOBIN 37.2 pg (27.0-34.0); MEAN CORPUSCULAR HGB CONC 35.4 g/dL (33.0-35.0); MEAN PLATELET VOLUME 8.4 fL (7.4-11.0); MONOCYTES # (AUTO) 0.3 x10^3/uL (0.3-0.8); MONOCYTES % (AUTO) 3.1 % (0.0-13.0); NEUTROPHILS # (AUTO) 7.9 x10^3/uL (2.2-4.8); NEUTROPHILS % (AUTO) 91.4 % (42.0-75.0); PLATELET COUNT 83 X10^3/uL (150.0-450.0); RED BLOOD COUNT 2.38 X10^6/uL (3.5-5.4); RED CELL DISTRIBUTION WIDTH 14.6 % (11.6-16.5); WHITE BLOOD COUNT 8.7 X10^3/uL (3.6-10.0)
[2020-11-10 08:51] LABS: ALANINE AMINOTRANSFERASE 26 Units/L (12-78); ALBUMIN 2.8 g/dL (3.4-5.0); ALKALINE PHOSPHATASE 28 Units/L (46-116); ASPARTATE AMINO TRANSFERASE 151 Units/L (15-37); BLOOD UREA NITROGEN 31 mg/dL (7-18); CALCIUM 8.6 mg/dL (8.5-10.1); CARBON DIOXIDE 27.8 mmol/L (21-32); CHLORIDE 103 mmol/L (98-107); COR CA(FOR HYPOALB) 9.6 mg/dL (8.5-10.1); COR NA(FOR HYPERGLY) 142 mmol/L (136-145); CREATININE 0.87 mg/dL (0.55-1.02); MAGNESIUM 2.1 mg/dL (1.7-2.9); SODIUM 140 mmol/L (136-145); TOTAL PROTEIN 5.6 g/dL (6.4-8.2); eGFR NON BLACK RACES > 60 (>60)
[2020-11-10] MEDS: BROVANA IN SCH ×2 (08:52→20:46)
[2020-11-10] MEDS: PULMICORT NEB TX 0.5 MG NEB SCH ×2 (09:02→20:53)
[2020-11-10] MEDS: MUCOMYST 20% 200 MG/ML NEB SCH ×4 (09:02→20:53)
[2020-11-10] MEDS: ACCUNEB 1.25 MG NEBULE NEB SCH ×4 (09:02→20:53)
[2020-11-10 09:25] LABS: BAND NEUTROPHILS % 10 % (0-10); METAMYELOCYTES % 2
[2020-11-10 09:26] LABS: PLATELET MORPHOLOGY COMMENT NORMAL (NORMAL)
[2020-11-10] MEDS: THIAMINE HCL INJ IVP SCH ×2 (09:34→21:05)
[2020-11-10] MEDS: VSL#3 PO SCH (09:38)
[2020-11-10] MEDS: ZINC SULFATE PO SCH (09:38)
[2020-11-10] MEDS: ZyrTEC TAB 10 MG PO SCH (09:38)
[2020-11-10] MEDS: MILK OF MAGNESIA PO SCH ×2 (09:39→21:00)
[2020-11-10] MEDS: VITAMIN D3 125 mcg (5,000 UNITS) PO SCH (09:39)
[2020-11-10] MEDS: PLAVIX PO SCH (09:39)
[2020-11-10] MEDS: DIFLUCAN PO SCH (09:40)
[2020-11-10] MEDS: PEPCID 20 MG IV PREMIX* 20 MG/50 ML BAG IV SCH (09:42)
[2020-11-10] MEDS: PROTONIX INJ 40 MG VIAL IVP SCH (09:42)
[2020-11-10] MEDS: DECADRON JET NEB (RESP USE) NEB SCH ×2 (13:02→17:11)
[2020-11-10] MEDS: SNACK - Diabetic Appropriate PO SCH (20:36)
[2020-11-10] MEDS: REMDESIVIR 100 MG in NS 250 ML IV 250 ML IV SCH (20:54)
[2020-11-11] MEDS: K-RIDER 10 MEQ/NS 100 ML 10 MEQ/100 ML BAG IV PRN ×2 (00:01→04:14)
[2020-11-11] MEDS: ASCORBIC ACID INJ MULTI-DOSE VIAL 1,500 MG in NS 50 ML IV 50 ML IV SCH ×4 (02:36→21:00)
[2020-11-11] MEDS: SOLU-Medrol 125 MG VIAL IVP SCH ×4 (02:36→21:00)
[2020-11-11 03:46] LABS: BASOPHILS % (AUTO) 0.1 % (0.2-1.0); HEMATOCRIT 23.4 % (36.0-47.0); LYMPHOCYTES # (AUTO) 0.2 X10^3/uL (1.3-2.9); MEAN CORPUSCULAR HEMOGLOBIN 36.1 pg (27.0-34.0); MEAN CORPUSCULAR HGB CONC 34.1 g/dL (33.0-35.0); MEAN CORPUSCULAR VOLUME 105.8 fL (80.0-100.0); MEAN PLATELET VOLUME 9.1 fL (7.4-11.0); MONOCYTES # (AUTO) 0.3 x10^3/uL (0.3-0.8); NEUTROPHILS # (AUTO) 9.6 x10^3/uL (2.2-4.8); NEUTROPHILS % (AUTO) 94.9 % (42.0-75.0); PLATELET COUNT 97 X10^3/uL (150.0-450.0); RED BLOOD COUNT 2.21 X10^6/uL (3.5-5.4); RED CELL DISTRIBUTION WIDTH 14.9 % (11.6-16.5); WHITE BLOOD COUNT 10.2 X10^3/uL (3.6-10.0)
[2020-11-11 03:55] LABS: ALANINE AMINOTRANSFERASE 27 Units/L (12-78); ALBUMIN 2.7 g/dL (3.4-5.0); ALKALINE PHOSPHATASE 32 Units/L (46-116); ASPARTATE AMINO TRANSFERASE 136 Units/L (15-37); BLOOD UREA NITROGEN 41 mg/dL (7-18); CALCIUM 8.4 mg/dL (8.5-10.1); CARBON DIOXIDE 25.8 mmol/L (21-32); CHLORIDE 103 mmol/L (98-107); COR CA(FOR HYPOALB) 9.4 mg/dL (8.5-10.1); COR NA(FOR HYPERGLY) 142 mmol/L (136-145); CREATININE 0.98 mg/dL (0.55-1.02); SODIUM 140 mmol/L (136-145); TOTAL PROTEIN 5.5 g/dL (6.4-8.2); eGFR NON BLACK RACES 57 (>60)
[2020-11-11 04:25] LABS: PLATELET MORPHOLOGY COMMENT NORMAL (NORMAL)
[2020-11-11 04:59] LABS: ABG BASE EXCESS 3.7 mmol/L (-2.0-2.0); ABG HCO3 25.7 mmol/L (22-26)
[2020-11-11 05:00] LABS: ABG ALLEN TEST POS
[2020-11-11] MEDS: FORTAZ or TAZICEF VIAL INJ 1 G in NS 100 ML IV + SPIKE MINIBAG* 100 ML IV SCH ×3 (05:42→22:25)
[2020-11-11] MEDS: TESSALON PERLES PO SCH ×3 (05:42→22:26)
[2020-11-11] MEDS: NS 1/2 1000 ML IV 1,000 ML IV SCH ×2 (05:42→17:17)
[2020-11-11] MEDS: HEPARIN SODIUM IN D5W 25,000 UNITS/500 ML BAG IV PRN (05:59)
--- NOTE | 2020-11-11 06:00 | RAD ---
HISTORYcovidSTUDYPortable AP [id number]/06/2021FINDINGSThere is no significant change in appearance of heart or lungs. Similar extent and distribution of bilateral airspace disease. There is no evidence for complicating pneumothorax or developing pleural effusion.IMPRESSIONNo interval change in appearance of the bilateral pneumonia.Electronically signed by: ESE GUZMAN (Nov 11, 2020 05:58:43)
[2020-11-11] MEDS: TUSSIONEX PENNKINETIC SUSP PO PRN (07:45)
[2020-11-11] MEDS: PEPCID 20 MG IV PREMIX* 20 MG/50 ML BAG IV SCH (08:31)
[2020-11-11] MEDS: THIAMINE HCL INJ IVP SCH ×2 (08:33→21:00)
[2020-11-11] MEDS: PROTONIX INJ 40 MG VIAL IVP SCH (08:33)
[2020-11-11] MEDS: DIFLUCAN PO SCH (08:34)
[2020-11-11] MEDS: PLAVIX PO SCH (08:34)
[2020-11-11] MEDS: MILK OF MAGNESIA PO SCH ×2 (08:34→22:28)
[2020-11-11] MEDS: ROBITUSSIN DM PO SCH ×4 (08:35→22:27)
[2020-11-11] MEDS: THEO-DUR TAB 300 MG 12-HR PO SCH ×2 (08:37→22:27)
[2020-11-11] MEDS: VITAMIN D3 125 mcg (5,000 UNITS) PO SCH (08:37)
[2020-11-11] MEDS: VSL#3 PO SCH (08:38)
[2020-11-11] MEDS: ZyrTEC TAB 10 MG PO SCH (08:38)
[2020-11-11] MEDS: ZINC SULFATE PO SCH (08:38)
[2020-11-11] MEDS: BROVANA IN SCH ×2 (09:21→21:00)
[2020-11-11] MEDS: ACCUNEB 1.25 MG NEBULE NEB SCH ×4 (09:27→21:00)
[2020-11-11] MEDS: PULMICORT NEB TX 0.5 MG NEB SCH ×2 (09:27→21:00)
[2020-11-11] MEDS: MUCOMYST 20% 200 MG/ML NEB SCH ×4 (09:27→21:00)
[2020-11-11 12:18] LABS: CKMB % 6.5 % (<4)
[2020-11-11 13:16] LABS: CREATINE KINASE MB 22.5 ng/mL (0-4.0)
[2020-11-11 13:17] LABS: TROPONIN I 34.19 ng/mL (0-1.5)
[2020-11-11] MEDS: ASPIRIN 81 MG CHEWTAB PO SCH (13:37)
[2020-11-11] MEDS: DECADRON JET NEB (RESP USE) NEB SCH ×2 (14:18→17:54)
[2020-11-11] MEDS: LASIX IVP SCH (15:53)
[2020-11-11] MEDS ORDERED: MORPHINE SULFATE INJ 2 MG INJ IVP ONE (17:17)
[2020-11-11] MEDS ORDERED: MORPHINE SULFATE INJ 2 MG INJ ONE (17:24)
[2020-11-11] MEDS ORDERED: NS 1/2 1000 ML IV 1,000 ML IV ONE (17:31)
[2020-11-11 17:36] LABS: CREATINE KINASE MB 21.3 ng/mL (0-4.0); TROPONIN I 27.79 ng/mL (0-1.5)
[2020-11-11 19:52] LABS: ABG BASE EXCESS -6.5 mmol/L (-2.0-2.0); ABG HCO3 18.2 mmol/L (22-26)
[2020-11-11] MEDS: SNACK - Diabetic Appropriate PO SCH (20:00)
[2020-11-11] MEDS ORDERED: HALDOL INJ IM PRN (20:16)
[2020-11-11] MEDS: REMDESIVIR 100 MG in NS 250 ML IV 250 ML IV SCH (21:00)
[2020-11-11] MEDS: GEODON INJ IM PRN (21:30)
[2020-11-11] MEDS ORDERED: GEODON INJ IM ONE (21:36)
[2020-11-11] MEDS: LIPITOR TAB 80 MG PO SCH (22:25)
[2020-11-11] MEDS: MELATONIN PO SCH (22:25)
[2020-11-11] MEDS: SINGULAIR TAB 10 MG PO SCH (22:27)
[2020-11-11 23:37] LABS: CKMB % 4.2 % (<4)
[2020-11-11 23:39] LABS: CREATINE KINASE MB 25.5 ng/mL (0-4.0); TROPONIN I 31.01 ng/mL (0-1.5)
[2020-11-12] MEDS: ASCORBIC ACID INJ MULTI-DOSE VIAL 1,500 MG in NS 50 ML IV 50 ML IV SCH ×4 (03:00→20:02)
[2020-11-12] MEDS: SOLU-Medrol 125 MG VIAL IVP SCH ×4 (03:00→20:04)
[2020-11-12] MEDS ORDERED: HEPARIN SODIUM IN D5W 25,000 UNITS/500 ML BAG IV ONE (03:37)
[2020-11-12 04:34] LABS: BASOPHILS % (AUTO) 0.1 % (0.2-1.0); HEMATOCRIT 24.7 % (36.0-47.0); HEMOGLOBIN 8.2 g/dL (12.0-16.0); LYMPHOCYTES # (AUTO) 0.2 X10^3/uL (1.3-2.9); LYMPHOCYTES % (AUTO) 1.6 % (21.0-51.0); MEAN CORPUSCULAR HEMOGLOBIN 35.5 pg (27.0-34.0); MEAN CORPUSCULAR VOLUME 107.4 fL (80.0-100.0); MEAN PLATELET VOLUME 9.5 fL (7.4-11.0); MONOCYTES # (AUTO) 0.5 x10^3/uL (0.3-0.8); MONOCYTES % (AUTO) 3.1 % (0.0-13.0); NEUTROPHILS # (AUTO) 14.7 x10^3/uL (2.2-4.8); NEUTROPHILS % (AUTO) 95.2 % (42.0-75.0); PLATELET COUNT 125 X10^3/uL (150.0-450.0); RED CELL DISTRIBUTION WIDTH 15.3 % (11.6-16.5); WHITE BLOOD COUNT 15.4 X10^3/uL (3.6-10.0)
[2020-11-12 05:16] LABS: ABG BASE EXCESS -0.7 mmol/L (-2.0-2.0); ABG HCO3 23.2 mmol/L (22-26)
[2020-11-12 05:22] LABS: ALANINE AMINOTRANSFERASE 75 Units/L (12-78); ALBUMIN 2.9 g/dL (3.4-5.0); ALKALINE PHOSPHATASE 41 Units/L (46-116); ASPARTATE AMINO TRANSFERASE 183 Units/L (15-37); BLOOD UREA NITROGEN 61 mg/dL (7-18); CALCIUM 8.8 mg/dL (8.5-10.1); CARBON DIOXIDE 23.8 mmol/L (21-32); CHLORIDE 106 mmol/L (98-107); CKMB % 5.9 % (<4); COR CA(FOR HYPOALB) 9.7 mg/dL (8.5-10.1); COR NA(FOR HYPERGLY) 147 mmol/L (136-145); CREATINE KINASE 523 Units/L (26-192); CREATININE 1.45 mg/dL (0.55-1.02); SODIUM 144 mmol/L (136-145); THEOPHYLLINE < 2.0 ug/mL (10-20); TOTAL PROTEIN 5.9 g/dL (6.4-8.2); eGFR NON BLACK RACES 36 (>60)
[2020-11-12 05:28] LABS: CREATINE KINASE MB 30.9 ng/mL (0-4.0); TROPONIN I 29.59 ng/mL (0-1.5)
[2020-11-12 05:29] LABS: PLATELET MORPHOLOGY COMMENT NORMAL (NORMAL)
[2020-11-12] MEDS: TESSALON PERLES PO SCH ×3 (05:52→22:05)
[2020-11-12] MEDS: FORTAZ or TAZICEF VIAL INJ 1 G in NS 100 ML IV + SPIKE MINIBAG* 100 ML IV SCH ×3 (05:52→21:38)
--- NOTE | 2020-11-12 06:22 | RAD ---
HISTORYSOBSTUDYCHEST, 1 [id number]/07/2021FINDINGSThe trachea is midline. The cardiac silhouette is mildly enlarged. Bilateral airspace opacities slightly increased from prior study. No pneumothorax.. The lungs are clear without focal infiltrate or effusion. The bony thorax is unremarkable.IMPRESSIONWorsening bilateral pulmonary opacities.Electronically signed by: Earnest Zhang (Nov 12, 2020 06:20:36)
[2020-11-12] MEDS: GEODON INJ IM PRN ×2 (08:28→14:49)
[2020-11-12] MEDS: ACCUNEB 1.25 MG NEBULE NEB SCH ×4 (09:35→21:00)
[2020-11-12] MEDS: MUCOMYST 20% 200 MG/ML NEB SCH ×4 (09:35→21:00)
[2020-11-12] MEDS: PULMICORT NEB TX 0.5 MG NEB SCH ×2 (09:35→21:00)
[2020-11-12] MEDS: BROVANA IN SCH ×2 (09:45→21:00)
[2020-11-12] MEDS: NS 1/2 1000 ML IV 1,000 ML IV SCH (09:50)
[2020-11-12] MEDS: PROTONIX INJ 40 MG VIAL IVP SCH (10:17)
[2020-11-12] MEDS: THIAMINE HCL INJ IVP SCH ×2 (10:18→20:03)
[2020-11-12] MEDS: PEPCID 20 MG IV PREMIX* 20 MG/50 ML BAG IV SCH (10:18)
[2020-11-12] MEDS: LASIX IVP SCH (10:19)
[2020-11-12] MEDS: DECADRON JET NEB (RESP USE) NEB SCH ×2 (12:28→17:21)
[2020-11-12] MEDS: DIFLUCAN PO SCH (17:06)
[2020-11-12] MEDS: ASPIRIN 81 MG CHEWTAB PO SCH (17:06)
[2020-11-12] MEDS: ROBITUSSIN DM PO SCH ×3 (17:07→20:05)
[2020-11-12] MEDS: MILK OF MAGNESIA PO SCH ×2 (17:07→20:04)
[2020-11-12] MEDS: PLAVIX PO SCH (17:07)
[2020-11-12] MEDS: THEO-DUR TAB 300 MG 12-HR PO SCH ×2 (17:08→20:03)
[2020-11-12] MEDS: VSL#3 PO SCH (17:09)
[2020-11-12] MEDS: VITAMIN D3 125 mcg (5,000 UNITS) PO SCH (17:09)
[2020-11-12] MEDS: ZINC SULFATE PO SCH (17:10)
[2020-11-12] MEDS: ZyrTEC TAB 10 MG PO SCH (17:10)
[2020-11-12] MEDS: LIPITOR TAB 80 MG PO SCH (20:03)
[2020-11-12] MEDS: MELATONIN PO SCH (20:03)
[2020-11-12] MEDS: SNACK - Diabetic Appropriate PO SCH (20:04)
[2020-11-12] MEDS: SINGULAIR TAB 10 MG PO SCH (20:04)
[2020-11-12] MEDS: REMDESIVIR 100 MG in NS 250 ML IV 250 ML IV SCH (22:00)
[2020-11-12 22:21] LABS: CKMB % 3.2 % (<4)
[2020-11-12 22:24] LABS: CREATINE KINASE MB 16.9 ng/mL (0-4.0); TROPONIN I 25.78 ng/mL (0-1.5)
[2020-11-13] MEDS: GEODON INJ IM PRN (01:22)
[2020-11-13] MEDS: NS 1/2 1000 ML IV 1,000 ML IV SCH ×3 (03:21→17:56)
[2020-11-13] MEDS: ASCORBIC ACID INJ MULTI-DOSE VIAL 1,500 MG in NS 50 ML IV 50 ML IV SCH (03:21)
[2020-11-13] MEDS: SOLU-Medrol 125 MG VIAL IVP SCH (03:22)
[2020-11-13] MEDS: K-RIDER 10 MEQ/NS 100 ML 10 MEQ/100 ML BAG IV PRN ×2 (04:18→06:24)
[2020-11-13 05:04] LABS: ABG BASE EXCESS 0.6 mmol/L (-2.0-2.0); ABG HCO3 24.3 mmol/L (22-26)
[2020-11-13] MEDS: FORTAZ or TAZICEF VIAL INJ 1 G in NS 100 ML IV + SPIKE MINIBAG* 100 ML IV SCH (05:18)
[2020-11-13 05:29] LABS: BASOPHILS % (AUTO) 0.1 % (0.2-1.0); HEMATOCRIT 22.3 % (36.0-47.0); HEMOGLOBIN 7.5 g/dL (12.0-16.0); LYMPHOCYTES # (AUTO) 0.1 X10^3/uL (1.3-2.9); LYMPHOCYTES % (AUTO) 1.1 % (21.0-51.0); MEAN CORPUSCULAR HEMOGLOBIN 35.9 pg (27.0-34.0); MEAN CORPUSCULAR HGB CONC 33.5 g/dL (33.0-35.0); MEAN PLATELET VOLUME 9.3 fL (7.4-11.0); MONOCYTES # (AUTO) 0.3 x10^3/uL (0.3-0.8); MONOCYTES % (AUTO) 2.9 % (0.0-13.0); NEUTROPHILS # (AUTO) 10.8 x10^3/uL (2.2-4.8); NEUTROPHILS % (AUTO) 95.9 % (42.0-75.0); PLATELET COUNT 118 X10^3/uL (150.0-450.0); RED BLOOD COUNT 2.09 X10^6/uL (3.5-5.4); RED CELL DISTRIBUTION WIDTH 15.2 % (11.6-16.5); WHITE BLOOD COUNT 11.3 X10^3/uL (3.6-10.0)
[2020-11-13 05:54] LABS: ALBUMIN 2.8 g/dL (3.4-5.0); CALCIUM 8.6 mg/dL (8.5-10.1); CARBON DIOXIDE 23.9 mmol/L (21-32); COR CA(FOR HYPOALB) 9.6 mg/dL (8.5-10.1); CREATININE 1.44 mg/dL (0.55-1.02); MAGNESIUM 1.9 mg/dL (1.7-2.9); TOTAL PROTEIN 5.6 g/dL (6.4-8.2)
--- NOTE | 2020-11-13 06:05 | RAD ---
HISTORYShortness of breathSTUDYChest AP [id number]/2021FINDINGSPatient is rotated to the right. Heart remains enlarged. Bilatera l perihilar alveolar filling is again identified not significantly changed in degree or distribution from the prior examination. This could represent cardiogenic or noncardiogenic edema or bilateral pne umonia. No definite pleural effusions are identified. Bony thorax is unremarkable.IMPRESSIONNo change diffuse bilateral perihilar alveolar fillingElectronically signed by: CHONG MONTANEZ (Nov 13, 2020 06 :03:40)
[2020-11-13] MEDS: TESSALON PERLES PO SCH (06:24)
[2020-11-13] MEDS: HumuLIN R SUBCUT PRN (06:41)
[2020-11-13] MEDS: MAGNESIUM SULFATE 1 GRAM/100 mL PREMIX 1 GM/100 ML BAG IV PRN ×2 (06:42→07:59)
[2020-11-13 06:49] LABS: BAND NEUTROPHILS % 8 % (0-10); PLATELET MORPHOLOGY COMMENT NORMAL (NORMAL)
[2020-11-13] MEDS ORDERED: MORPHINE SULFATE INJ 2 MG INJ IVP PRN (07:29)
[2020-11-13 09:09] LABS: CKMB % 2.2 % (<4)
[2020-11-13 09:14] LABS: CREATINE KINASE MB 15.7 ng/mL (0-4.0); TROPONIN I 25.15 ng/mL (0-1.5)
[2020-11-13] MEDS: ACCUNEB 1.25 MG NEBULE NEB SCH (10:11)
[2020-11-13] MEDS: MUCOMYST 20% 200 MG/ML NEB SCH (10:12)
[2020-11-13] MEDS: PULMICORT NEB TX 0.5 MG NEB SCH (10:12)
[2020-11-13] MEDS: BROVANA IN SCH (10:12)
[2020-11-13] MEDS: ASPIRIN 81 MG CHEWTAB PO SCH (10:36)
[2020-11-13] MEDS: PLAVIX PO SCH (10:36)
[2020-11-13] MEDS: ZINC SULFATE PO SCH (10:37)
[2020-11-13] MEDS: DIFLUCAN PO SCH (10:37)
[2020-11-13] MEDS: VITAMIN D3 125 mcg (5,000 UNITS) PO SCH (10:39)
[2020-11-13] MEDS: ZyrTEC TAB 10 MG PO SCH (10:39)
[2020-11-13] MEDS: THEO-DUR TAB 300 MG 12-HR PO SCH (10:40)
[2020-11-13] MEDS: VSL#3 PO SCH (10:40)
[2020-11-13] MEDS ORDERED: NS 1/2 1000 ML IV 1,000 ML IV ONE (11:17)
[2020-11-13] MEDS: MORPHINE SULFATE PCA 30 MG IVP PRN ×3 (11:30→23:45)
[2020-11-13] MEDS: VERSED IV PREMIX 100 MG/100 ML IV.SOLN IV PRN (11:35)
--- NOTE | 2020-11-13 11:41 | PCM.PROG ---
Progress Note - Progress Note for Day of Date of Exam: 11/12/20 - Subjective Subjective: IS BEING TREATED FOR PNEUMONIA DUE TO COVID-19, ACUTE IA, AND HYPOXIA. SHE HAS A HISTORY OF DIABETES MELLITUS, GERD, CHF, AND HTN. STAFF REPORTS THAT SHE HAS BEEN AGITATED AND COMBATIVE. SHE REMAINS ON A HEPARIN DRIP DUE TO ACUTE IA. SHE ALSO CONTINUES TO RECEIVE IV ANTIBIOTICS AND CORTICOSTEROID THERAPY. FAMILY REFUSED TRANSFER TO [facility]. SHE IS CURRENTLY ON THE NON-REBREATHER AT 100% FI02. HER SATURATIONS HAVE RAN ANYWHERE FROM 83-98%. ON EXAMINATION, SHE IS MOANING. SHE DOES NOT RESPOND TO QUESTIONS. SHE ONLY CONTINUES TO MOAN. SHE CONTINUES TO BE TACHYCARDIC WITH HR IN THE 120s. BILATERAL LUNGS ARE NOTED WITH RALES THROUGHOUT. ABDOMEN IS FLAT, SOFT, AND NON-TENDER WITH NORMAL BOWEL SOUNDS NOTED IN ALL QUADRANTS. UPPER AND LOWER EXTREMITIES ARE NOTED WITH TRACE EDEMA. HER VITALS THIS MORNING ARE: 99.2-841-81-100%-119/73. LABS WERE OBTAINED. ABNORMAL LAB VALUES INCLUDE THE FOLLOWING: WBC 15.4, RBC 2.30, HGB 8.2, HCT 24.7, PLT COUNT 125, D-DIMER 1.96, BUN 61, CREATININE 1.45, GLUCOSE 205, FERRITIN 2533, AST 183, ALK PHOS 41, CREATINE KINASE 523, CK-MB 30.9, TROPONIN 29.59, CRP 116.30, BNP 2040, TOTAL PROTEIN 5.9, ALBUMIN 2.9. BLOOD CULTURES ARE PENDING. A CHEST XRAY WAS OBTAINED AND REVEALED: WORSENING BILATERAL PULMONARY OPACITIES. ECHO REVEALED AN EJECTION FRACTION OF 39%. 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 MODERATE CALCIFICATION OF THE AORTIC VALVE ANNULUS. 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 SHE IS CURRENTLY RECEIVING 1/2NS AT 50 ML/HR, A HEPARIN DRIP, REMDESIVIR 100MG IV DAILY, FORTAZ 1G IV Q8H, IVERMECTIN, SOLU-MEDROL 125MG IV Q6H, LOVENOX, ALBUTEROL NEB TX QID, PULMICORT NEB TX BID, BROVANA BID, MUCOMYST IN NEBS QID, DECADRON IN NEBS BID, PEPCID 20MG DAILY, PROTONIX 40MG IV DAILY, DIFLUCAN 100MG PO DAILY, ROBITUSSIN DM QID, TESSALON PERLES 200MG PO TID, ASCORBIC ACID 1500MG Q6H, VITAMIN D DAILY, ZINC 220MG PO DAILY, MELATONIN 10MG PO HS, MILK OF MAGNESIA 30ML BID, THIAMINE 200MG IV BID, ATORVASTATIN 80MG PO HS, MAGIC MOUTHWASH QID PRN, HUMULIN R SLIDING SCALE, SINGULAIR 10MG PO HS, ZYRTEC 10MG PO HS, LESLY-DUR 300MG PO BID. WE WILL CONTINUE WITH CURRENT PLAN OF CARE TODAY. WE WILL DISCUSS PATIENTS CONDITION WITH HER FAMILY MEMBERS. OTHERWISE, WE PLAN TO FOLLOW UP WITH AM LABS, CHEST XRAY, ABG, AND CONTINUE TO MONITOR. - Past Medical Family Social History Past Med/Fam/Surg Hx: No changes since H&P Allergies: Allergies ciprofloxacin [From Cipro] Allergy (Verified 05/25/17 18:00) codeine Allergy (Verified 05/25/17 18:00) metronidazole [From Flagyl] Allergy (Verified 12/12/19 09:12) - Review of Systems ROS: No change since H&P - Vital Signs and I&O's Vital Signs: Temperature 98.2 F Pulse Rate [Bilateral] 101 Pulse Rate 121 Respiratory Rate 22 Blood Pressure [Left Arm] 87/52 Blood Pressure [Right Arm] 97/53 Blood Pressure 105/61 O2 Sat by Pulse Oximetry 100 Intake and Output: Intake & Output 11/10/20 11/11/20 11/12/20 11/13/20 11:59 11:59 11:59 11:59 Intake Total 2654 / 2654 2506 / 2506 1448 / 1448 1686 / 1686 Output Total 825 / 825 725 / 725 520 / 520 1175 / 1175 Balance 1829 / 1829 1781 / 1781 928 / 928 511 / 511 - Physical Exam Oriented: Unable to test Eyes: Normal Ear: Normal Nose: Normal Throat: Normal Cardiovascular: Tachycardia : Normal Auscultation: Bowel Sounds: Normal Palpation: Normal Tenderness: Normal Skin: Normal Musculoskeletal: Normal Psychiatric: Normal Mood Description: Calm Affect: Normal Speech Pattern: Clear - Laboratory and Diagnostics Result Diagrams: 11/13/20 04:25 11/13/20 04:25 Labs: 11/09/20 04:03 Blood Blood Culture - Preliminary 11/09/20 03:50 Blood Blood Culture - Preliminary Laboratory WBC 11.3 X10^3/uL (3.6-10.0) H 11/13/20 04:25 RBC 2.09 X10^6/uL (3.5-5.4) L 11/13/20 04:25 Hgb 7.5 g/dL (12.0-16.0) L 11/13/20 04:25 Hct 22.3 % (36.0-47.0) L 11/13/20 04:25 MCV 107.0 fL (80.0-100.0) H 11/13/20 04:25 MCH 35.9 pg (27.0-34.0) H 11/13/20 04:25 MCHC 33.5 g/dL (33.0-35.0) 11/13/20 04:25 RDW 15.2 % (11.6-16.5) 11/13/20 04:25 Plt Count 118 X10^3/uL (150.0-450.0) L 11/13/20 04:25 Plt Count Comment Decreased (ADEQUATE) A 11/13/20 04:25 MPV 9.3 fL (7.4-11.0) 11/13/20 04:25 Neut % (Auto) 95.9 % (42.0-75.0) H 11/13/20 04:25 Lymph % (Auto) 1.1 % (21.0-51.0) L 11/13/20 04:25 [place] % (Auto) 2.9 % (0.0-13.0) 11/13/20 04:25 Eos % (Auto) 0.0 % (0.9-2.9) L 11/13/20 04:25 Baso % (Auto) 0.1 % (0.2-1.0) L 11/13/20 04:25 Neut # (Auto) 10.8 x10^3/uL (2.2-4.8) H 11/13/20 04:25 Lymph # (Auto) 0.1 X10^3/uL (1.3-2.9) L 11/13/20 04:25 [place] # (Auto) 0.3 x10^3/uL (0.3-0.8) 11/13/20 04:25 Eos # (Auto) 0.0 x10^3/uL (0.0-0.2) 11/13/20 04:25 Baso # (Auto) 0.0 X10^3/uL (0.0-0.1) 11/13/20 04:25 Absolute Nucleated RBC 0.3 /100WBC 11/13/20 04:25 Total Counted 100 11/13/20 04:25 Neutrophils % (Manual) 90 % (39-76) H 11/13/20 04:25 Band Neutrophils % 8 % (0-10) 11/13/20 04:25 Lymphocytes % (Manual) 1 % (13-43) L 11/13/20 04:25 Monocytes % (Manual) 1 % (4-9) L 11/13/20 04:25 Metamyelocytes % 2 11/10/20 08:00 Plt Morphology Comment Normal (NORMAL) 11/13/20 04:25 RBC Morphology Abnormal (NORMAL) A 11/13/20 04:25 Macrocytosis Slight A 11/13/20 04:25 PT 14.2 SECONDS (11.8-14.3) 11/09/20 11:09 INR Target Range - 11/09/20 11:09 INR 1.13 (0.8-1.3) 11/09/20 11:09 APTT 67.8 SECONDS (22.9-36.5) H 11/12/20 04:20 PTT Comment - 11/12/20 04:20 D-Dimer 2.59 ug/ml (0.0-0.57) H* 11/13/20 04:25 Sample Site Lb 11/13/20 05:02 ABG pH 7.450 (7.35-7.45) 11/13/20 05:02 ABG pCO2 35.0 mmHg (35.0-45.0) 11/13/20 05:02 ABG pO2 136.0 mmHg (80.0-100.0) H 11/13/20 05:02 ABG HCO3 24.3 mmol/L (22-26) 11/13/20 05:02 ABG O2 Saturation 99.0 % (90-100) 11/13/20 05:02 ABG Base Excess 0.6 mmol/L (-2.0-2.0) 11/13/20 05:02 Cristian Test Na 11/13/20 05:02 A-a Gradient 533.0 mmHg 11/13/20 05:02 FiO2 100.0 11/13/20 05:02 Blood Gas Comments Nica abg well-mtf 11/13/20 05:02 Sodium 149 mmol/L (136-145) H 11/13/20 04:25 Corrected Sodium 152 mmol/L (136-145) H 11/13/20 04:25 Potassium 3.3 mmol/L (3.5-5.1) L 11/13/20 04:25 Chloride 110 mmol/L (98-107) H 11/13/20 04:25 Carbon Dioxide 23.9 mmol/L (21-32) 11/13/20 04:25 BUN 70 mg/dL (7-18) H 11/13/20 04:25 Creatinine 1.44 mg/dL (0.55-1.02) H 11/13/20 04:25 Est GFR (MDRD) Af Amer 44 (>60) L 11/13/20 04:25 Est GFR (MDRD) Non-Af 37 (>60) L 11/13/20 04:25 Glucose 221 mg/dL (65-99) H 11/13/20 04:25 POC Glucose (mg/dL) 209 mg/dL (65-99) H 11/13/20 06:36 Lactic Acid 2.0 mmol/L (0.4-2.0) 11/09/20 03:50 Calcium 8.6 mg/dL (8.5-10.1) 11/13/20 04:25 Corrected Calcium 9.6 mg/dL (8.5-10.1) 11/13/20 04:25 Magnesium 1.9 mg/dL (1.7-2.9) 11/13/20 04:25 Ferritin 969 ng/mL (8-252) H 11/13/20 04:25 Total Bilirubin 0.70 mg/dL (0.2-1.0) 11/13/20 04:25 AST 122 Units/L (15-37) H 11/13/20 04:25 ALT 65 Units/L (12-78) 11/13/20 04:25 Alkaline Phosphatase 55 Units/L (46-116) 11/13/20 04:25 Creatine Kinase 731 Units/L (26-192) H 11/13/20 04:25 CK-MB (CK-2) 15.7 ng/mL (0-4.0) H* 11/13/20 04:25 CK/CKMB % Calc 2.2 % (<4) 11/13/20 04:25 Troponin I 25.15 ng/mL (0-1.5) H* 11/13/20 04:25 C-Reactive Protein 88.30 mg/L (0-3.0) H 11/13/20 04:25 B-Natriuretic Peptide 3280 pg/mL (0-79) H* 11/13/20 04:25 Total Protein 5.6 g/dL (6.4-8.2) L 11/13/20 04:25 Albumin 2.8 g/dL (3.4-5.0) L 11/13/20 04:25 Globulin 2.8 g/dL (2.5-4.5) 11/13/20 04:25 Albumin/Globulin Ratio 1.0 Ratio (1.1-2.1) L 11/13/20 04:25 Amylase 44 Units/L (25-115) 11/09/20 03:50 Lipase 173 Units/L (73-393) 11/09/20 03:50 Specimen Type Catherized urine 11/09/20 09:08 Urine Color Yellow (YELLOW) 11/09/20 09:08 Urine Appearance Clear (CLEAR) 11/09/20 09:08 Urine pH 6.0 (5.0 - 8.0) 11/09/20 09:08 Ur Specific [place] 1.015 (1.000-1.030) 11/09/20 09:08 Urine Protein 2+ (NEGATIVE) 11/09/20 09:08 Urine Glucose (UA) Negative (NEGATIVE) 11/09/20 09:08 Urine Ketones 1+ (NEGATIVE) 11/09/20 09:08 Urine Occult Blood Negative (NEGATIVE) 11/09/20 09:08 Urine Nitrite Negative (NEGATIVE) 11/09/20 09:08 Urine Bilirubin Negative (NEGATIVE) 11/09/20 09:08 Urine Urobilinogen Normal (NORMAL) 11/09/20 09:08 Ur Leukocyte Esterase Negative (NEGATIVE) 11/09/20 09:08 Urine RBC None seen /HPF (0-3) 11/09/20 09:08 Urine WBC None seen /HPF (0-5) 11/09/20 09:08 Ur Squamous Epith Cells Rare /HPF (NEGATIVE) 11/09/20 09:08 Urine Bacteria Negative /HPF (NEGATIVE) 11/09/20 09:08 Urine Mucus Rare /HPF (NEGATIVE) 11/09/20 09:08 Ur Culture Indicated? No/not indicated 11/09/20 09:08 Theophylline < 2.0 ug/mL (10-20) L 11/12/20 04:20 Blood Type A POSITIVE 11/09/20 11:09 - Plan (1) COVID-19 virus infection Status: Acute Plan: supplemental oxygen, iv antibiotics, resporatory therapy, pulmonary toileting, monitor labs, abg, chest xray (2) Pneumonia Status: Acute Qualifiers: Pneumonia type: due to unspecified organism Laterality: bilateral Lung location: lower lobe of lung Qualified Code(s): J18.9 - Pneumonia, unspecified organism (3) Acute myocardial infarction Status: Acute Qualifiers: Myocardial infarction type: unspecified Involved coronary artery: unspecified coronary artery Qualified Code(s): I21.9 - Acute myocardial infarction, unspecified Plan: heparin drip, residential monitor, blood pressure control, statin therapy, repeat cardiac enzymes. (4) Hypoxia Status: Acute (5) CHF (congestive heart failure) Status: Chronic Qualifiers: Heart failure type: combined systolic and diastolic Heart failure chronicity: acute on chronic Qualified Code(s): I50.43 - Acute on chronic combined systolic (congestive) and diastolic (congestive) heart failure (6) Diabetes mellitus, type 2 Status: Chronic Qualifiers: Diabetes mellitus local intermodal truck driver insulin use: unspecified local intermodal truck driver insulin use status Diabetes mellitus complication status: without complication Qualified Code(s): E11.9 - Type 2 diabetes mellitus without complications (7) Essential hypertension Status: Chronic (8) GERD (gastroesophageal reflux disease) Status: Chronic Qualifiers: Esophagitis presence: esophagitis presence not specified Qualified Code(s): K21.9 - Gastro-esophageal reflux disease without esophagitis
[2020-11-13] MEDS ORDERED: FORTAZ or TAZICEF VIAL INJ 1 G in NS 100 ML IV + SPIKE MINIBAG* 100 ML IV SCH (21:00)
[2020-11-14] MEDS: ASCORBIC ACID INJ MULTI-DOSE VIAL 1,500 MG in NS 50 ML IV 50 ML IV SCH (00:54)
[2020-11-14] MEDS: THIAMINE HCL INJ IVP SCH (00:55)
[2020-11-14] MEDS: SOLU-Medrol 125 MG VIAL IVP SCH (00:55)
[2020-11-14] MEDS: ROBITUSSIN DM PO SCH (00:56)
[2020-11-14] MEDS: PROTONIX INJ 40 MG VIAL IVP SCH (00:56)
[2020-11-14] MEDS: LASIX IVP SCH (00:57)
[2020-11-14] MEDS: MILK OF MAGNESIA PO SCH (00:57)
[2020-11-14] MEDS: PEPCID 20 MG IV PREMIX* 20 MG/50 ML BAG IV SCH (00:57)
[2020-11-14] MEDS: NS 1/2 1000 ML IV 1,000 ML IV SCH (03:22)
[2020-11-14] MEDS: VERSED IV PREMIX 100 MG/100 ML IV.SOLN IV PRN (06:10)
[2020-11-14] MEDS: MORPHINE SULFATE PCA 30 MG IVP PRN (06:10)
[2020-11-14 10:26] VITALS: BP 45/24
--- NOTE | 2021-01-15 12:57 | PCM.PROG ---
Progress Note - Progress Note for Day of Date of Exam: 11/13/20 - Subjective Subjective: IS BEING TREATED FOR PNEUMONIA DUE TO COVID-19, ACUTE MD, AND HYPOXIA. SHE HAS A HISTORY OF DIABETES MELLITUS, GERD, CHF, AND HTN. FAMILY REFUSED TRANSFER TO [facility]. STAFF REPORTS THAT PATIENT HAS RESTED WELL THROUGHOUT HE NIGHT. SHE HAS NOT BEEN RESPONSIVE TO VERBAL STIMULI. SHE HAS MOANED OCCASIONALLY TO PAINFUL STIMULI. SHE REMAINS ON A HEPARIN DRIP DUE TO ACUTE MD. SHE ALSO CONTINUES TO RECEIVE IV ANTIBIOTICS AND CORTICOSTEROID THERAPY. SHE IS CURRENTLY ON THE NON-REBREATHER AT 100% FI02. HER SATURATIONS HAVE BEEN IN THE 90s. HEART RATE HAS REMAINED ELEATED AT 110-130 BPM. BILATERAL LUNGS ARE NOTED WITH RALES THROUGHOUT. ABDOMEN IS FLAT, SOFT, AND NON-TENDER WITH NORMAL BOWEL SOUNDS NOTED IN ALL QUADRANTS. UPPER AND LOWER EXTREMITIES ARE NOTED WITH TRACE EDEMA. HER VITALS THIS MORNING ARE: 98.4-644-27-100%-119/72. LABS WERE OBTAINED. ABNORMAL LAB VALUES INCLUDE THE FOLLOWING: WBC 11.3, RBC 2.09, HGB 7.5, HCT 22.3, PLT COUNT 118, D-DIMER 2.59, SODIUM 149, POTASSIUM 3.3, CHLORIDE 110, BUN 70, CREATININE 1.44, GLUCOSE 221, FERRITIN 969, AST 122, CREATINE KINASE 731, CK-MB 15.7, TROPONIN 25.15, CRP 88.30, BNP 3280, TOTAL PROTEIN 5.6, ALBUMIN 2.8. BLOOD CULTURES ARE PENDING. A CHEST XRAY WAS OBTAINED AND REVEALED: Patient is rotated to the right. Heart remains enlarged. Bilateral perihilar alveolar filling is again identified not significantly changed in degree or distribution from the prior examination. This could represent cardiogenic or noncardiogenic edema or bilateral pneumonia. No definite pleural effusions are identified. Bony thorax is unremarkable. SHE IS CURRENTLY RECEIVING 1/2NS AT 50 ML/HR, A HEPARIN DRIP, REMDESIVIR 100MG IV DAILY, FORTAZ 1G IV Q8H, IVERMECTIN, SOLU-MEDROL 125MG IV Q6H, LOVENOX, ALBUTEROL NEB TX QID, PULMICORT NEB TX BID, BROVANA BID, MUCOMYST IN NEBS QID, DECADRON IN NEBS BID, PEPCID 20MG DAILY, PROTONIX 40MG IV DAILY, DIFLUCAN 100MG PO DAILY, ROBITUSSIN DM QID, TESSALON PERLES 200MG PO TID, ASCORBIC ACID 1500MG Q6H, VITAMIN D DAILY, ZINC 220MG PO DAILY, MELATONIN 10MG PO HS, MILK OF MAGNESIA 30ML BID, THIAMINE 200MG IV BID, ATORVASTATIN 80MG PO HS, MAGIC MOUTHWASH QID PRN, HUMULIN R SLIDING SCALE, SINGULAIR 10MG PO HS, ZYRTEC 10MG PO HS, LESLY-DUR 300MG PO BID. WE DISCUSSED PATIENTS DETERIORATING CONDITION WITH HER FAMILY MEMBERS. THEY WISH TO STOP ALL TREATMENTS AT THIS TIME AND TO PLACE PATIENT ON PALLIATIVE CARE. WE ARE IN AGREEMENT WITH PLANS. WE WILL DISCONTINUE ALL TREATMENTS WITH THE EXCEPTION OF MORPHINE 5MG/HR SUPERVISOR PRINT LINE AND A VERSED DRIP FOR COMFORT, SEDATION, AND SEIZURE CONTROL. OTHERWISE, WE PLAN TO CONTINUE TO MONITOR AND MAKE CHANGES ACCORDINGLY. - Past Medical Family Social History Past Med/Fam/Surg Hx: No changes since H&P Allergies: Allergies ciprofloxacin [From Cipro] Allergy (Verified 05/25/17 18:00) codeine Allergy (Verified 05/25/17 18:00) metronidazole [From Flagyl] Allergy (Verified 12/12/19 09:12) - Review of Systems ROS: No change since H&P - Vital Signs and I&O's Vital Signs: Temperature 96.3 F Pulse Rate [Bilateral] 101 Pulse Rate 76 Respiratory Rate 9 Blood Pressure [Left Arm] 87/52 Blood Pressure [Right Arm] 97/53 Blood Pressure 45/24 O2 Sat by Pulse Oximetry 99 - Physical Exam Oriented: Unable to test Eyes: Normal Ear: Normal Nose: Normal Throat: Normal Respiratory: Generalized, Diminished Cardiovascular: Tachycardia : Normal Auscultation: Bowel Sounds: Normal Palpation: Normal Tenderness: Normal Skin: Normal Musculoskeletal: Normal Psychiatric: Other Mood Description: Flat Affect: Flat Speech Pattern: Inappropriate - Laboratory and Diagnostics Result Diagrams: 11/13/20 04:25 11/13/20 04:25 Labs: 11/09/20 04:03 Blood Blood Culture - Final 11/09/20 03:50 Blood Blood Culture - Final Laboratory WBC 11.3 X10^3/uL (3.6-10.0) H 11/13/20 04:25 RBC 2.09 X10^6/uL (3.5-5.4) L 11/13/20 04:25 Hgb 7.5 g/dL (12.0-16.0) L 11/13/20 04:25 Hct 22.3 % (36.0-47.0) L 11/13/20 04:25 MCV 107.0 fL (80.0-100.0) H 11/13/20 04:25 MCH 35.9 pg (27.0-34.0) H 11/13/20 04:25 MCHC 33.5 g/dL (33.0-35.0) 11/13/20 04:25 RDW 15.2 % (11.6-16.5) 11/13/20 04:25 Plt Count 118 X10^3/uL (150.0-450.0) L 11/13/20 04:25 Plt Count Comment Decreased (ADEQUATE) A 11/13/20 04:25 MPV 9.3 fL (7.4-11.0) 11/13/20 04:25 Neut % (Auto) 95.9 % (42.0-75.0) H 11/13/20 04:25 Lymph % (Auto) 1.1 % (21.0-51.0) L 11/13/20 04:25 [place] % (Auto) 2.9 % (0.0-13.0) 11/13/20 04:25 Eos % (Auto) 0.0 % (0.9-2.9) L 11/13/20 04:25 Baso % (Auto) 0.1 % (0.2-1.0) L 11/13/20 04:25 Neut # (Auto) 10.8 x10^3/uL (2.2-4.8) H 11/13/20 04:25 Lymph # (Auto) 0.1 X10^3/uL (1.3-2.9) L 11/13/20 04:25 [place] # (Auto) 0.3 x10^3/uL (0.3-0.8) 11/13/20 04:25 Eos # (Auto) 0.0 x10^3/uL (0.0-0.2) 11/13/20 04:25 Baso # (Auto) 0.0 X10^3/uL (0.0-0.1) 11/13/20 04:25 Absolute Nucleated RBC 0.3 /100WBC 11/13/20 04:25 Total Counted 100 11/13/20 04:25 Neutrophils % (Manual) 90 % (39-76) H 11/13/20 04:25 Band Neutrophils % 8 % (0-10) 11/13/20 04:25 Lymphocytes % (Manual) 1 % (13-43) L 11/13/20 04:25 Monocytes % (Manual) 1 % (4-9) L 11/13/20 04:25 Metamyelocytes % 2 11/10/20 08:00 Plt Morphology Comment Normal (NORMAL) 11/13/20 04:25 RBC Morphology Abnormal (NORMAL) A 11/13/20 04:25 Macrocytosis Slight A 11/13/20 04:25 PT 14.2 SECONDS (11.8-14.3) 11/09/20 11:09 INR Target Range - 11/09/20 11:09 INR 1.13 (0.8-1.3) 11/09/20 11:09 APTT 67.8 SECONDS (22.9-36.5) H 11/12/20 04:20 PTT Comment - 11/12/20 04:20 D-Dimer 2.59 ug/ml (0.0-0.57) H* 11/13/20 04:25 Sample Site Lbra 11/13/20 05:02 ABG pH 7.450 (7.35-7.45) 11/13/20 05:02 ABG pCO2 35.0 mmHg (35.0-45.0) 11/13/20 05:02 ABG pO2 136.0 mmHg (80.0-100.0) H 11/13/20 05:02 ABG HCO3 24.3 mmol/L (22-26) 11/13/20 05:02 ABG O2 Saturation 99.0 % (90-100) 11/13/20 05:02 ABG Base Excess 0.6 mmol/L (-2.0-2.0) 11/13/20 05:02 Cristian Test Na 11/13/20 05:02 A-a Gradient 533.0 mmHg 11/13/20 05:02 FiO2 100.0 11/13/20 05:02 Blood Gas Comments Nica abg well-mtf 11/13/20 05:02 Sodium 149 mmol/L (136-145) H 11/13/20 04:25 Corrected Sodium 152 mmol/L (136-145) H 11/13/20 04:25 Potassium 3.3 mmol/L (3.5-5.1) L 11/13/20 04:25 Chloride 110 mmol/L (98-107) H 11/13/20 04:25 Carbon Dioxide 23.9 mmol/L (21-32) 11/13/20 04:25 BUN 70 mg/dL (7-18) H 11/13/20 04:25 Creatinine 1.44 mg/dL (0.55-1.02) H 11/13/20 04:25 Est GFR (MDRD) Af Amer 44 (>60) L 11/13/20 04:25 Est GFR (MDRD) Non-Af 37 (>60) L 11/13/20 04:25 Glucose 221 mg/dL (65-99) H 11/13/20 04:25 POC Glucose (mg/dL) 209 mg/dL (65-99) H 11/13/20 06:36 Lactic Acid 2.0 mmol/L (0.4-2.0) 11/09/20 03:50 Calcium 8.6 mg/dL (8.5-10.1) 11/13/20 04:25 Corrected Calcium 9.6 mg/dL (8.5-10.1) 11/13/20 04:25 Magnesium 1.9 mg/dL (1.7-2.9) 11/13/20 04:25 Ferritin 969 ng/mL (8-252) H 11/13/20 04:25 Total Bilirubin 0.70 mg/dL (0.2-1.0) 11/13/20 04:25 AST 122 Units/L (15-37) H 11/13/20 04:25 ALT 65 Units/L (12-78) 11/13/20 04:25 Alkaline Phosphatase 55 Units/L (46-116) 11/13/20 04:25 Creatine Kinase 731 Units/L (26-192) H 11/13/20 04:25 CK-MB (CK-2) 15.7 ng/mL (0-4.0) H* 11/13/20 04:25 CK/CKMB % Calc 2.2 % (<4) 11/13/20 04:25 Troponin I 25.15 ng/mL (0-1.5) H* 11/13/20 04:25 C-Reactive Protein 88.30 mg/L (0-3.0) H 11/13/20 04:25 B-Natriuretic Peptide 3280 pg/mL (0-79) H* 11/13/20 04:25 Total Protein 5.6 g/dL (6.4-8.2) L 11/13/20 04:25 Albumin 2.8 g/dL (3.4-5.0) L 11/13/20 04:25 Globulin 2.8 g/dL (2.5-4.5) 11/13/20 04:25 Albumin/Globulin Ratio 1.0 Ratio (1.1-2.1) L 11/13/20 04:25 Amylase 44 Units/L (25-115) 11/09/20 03:50 Lipase 173 Units/L (73-393) 11/09/20 03:50 Specimen Type Catherized urine 11/09/20 09:08 Urine Color Yellow (YELLOW) 11/09/20 09:08 Urine Appearance Clear (CLEAR) 11/09/20 09:08 Urine pH 6.0 (5.0 - 8.0) 11/09/20 09:08 Ur Specific [place] 1.015 (1.000-1.030) 11/09/20 09:08 Urine Protein 2+ (NEGATIVE) 11/09/20 09:08 Urine Glucose (UA) Negative (NEGATIVE) 11/09/20 09:08 Urine Ketones 1+ (NEGATIVE) 11/09/20 09:08 Urine Occult Blood Negative (NEGATIVE) 11/09/20 09:08 Urine Nitrite Negative (NEGATIVE) 11/09/20 09:08 Urine Bilirubin Negative (NEGATIVE) 11/09/20 09:08 Urine Urobilinogen Normal (NORMAL) 11/09/20 09:08 Ur Leukocyte Esterase Negative (NEGATIVE) 11/09/20 09:08 Urine RBC None seen /HPF (0-3) 11/09/20 09:08 Urine WBC None seen /HPF (0-5) 11/09/20 09:08 Ur Squamous Epith Cells Rare /HPF (NEGATIVE) 11/09/20 09:08 Urine Bacteria Negative /HPF (NEGATIVE) 11/09/20 09:08 Urine Mucus Rare /HPF (NEGATIVE) 11/09/20 09:08 Ur Culture Indicated? No/not indicated 11/09/20 09:08 Theophylline < 2.0 ug/mL (10-20) L 11/12/20 04:20 Blood Type A POSITIVE 11/09/20 11:09 - Plan (1) Palliative care status Status: Acute Plan: MORPHINE 5MG/HR SUPERVISOR PRINT LINE AND A VERSED DRIP FOR COMFORT, SEDATION, AND SEIZURE CONTROL. (2) COVID-19 virus infection Status: Acute (3) Pneumonia Status: Acute Qualifiers: Pneumonia type: due to unspecified organism Laterality: bilateral Lung location: lower lobe of lung Qualified Code(s): J18.9 - Pneumonia, unspecified organism (4) Acute myocardial infarction Status: Acute Qualifiers: Myocardial infarction type: unspecified Involved coronary artery: unspecified coronary artery Qualified Code(s): I21.9 - Acute myocardial infarction, unspecified (5) Hypoxia Status: Acute (6) CHF (congestive heart failure) Status: Chronic Qualifiers: Heart failure type: combined systolic and diastolic Heart failure chronicity: acute on chronic Qualified Code(s): I50.43 - Acute on chronic combined systolic (congestive) and diastolic (congestive) heart failure (7) Diabetes mellitus, type 2 Status: Chronic Qualifiers: Diabetes mellitus [employer]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
== END 2020-11-14 10:20 | disposition expired | DRG 177 ==
LOC: ER 02:46 → ICU 07:48
PROVIDERS: ADMIT Internal Medicine; ATTEND Internal Medicine
DX: U07.1 COVID-19; J12.81 Pneumonia due to SARS-associated coronavirus; I10 Essential (primary) hypertension; D68.9 Coagulation defect, unspecified; Z86.73 Personal history of transient ischemic attack (TIA), and cerebral infarction without residual deficits; K21.9 Gastro-esophageal reflux disease without esophagitis; Z87.440 Personal history of urinary (tract) infections; R26.9 Unspecified abnormalities of gait and mobility; R41.82 Altered mental status, unspecified; E11.9 Type 2 diabetes mellitus without complications; Z66 Do not resuscitate; Z85.118 Personal history of other malignant neoplasm of bronchus and lung; I46.9 Cardiac arrest, cause unspecified; Z78.1 Physical restraint status; R09.02 Hypoxemia; F41.9 Anxiety disorder, unspecified; I21.9 Acute myocardial infarction, unspecified